=== PATIENT | male | born 1960 | race African-American/Black ===

== ENCOUNTER 2023-03-07 10:58 | Outpatient (REF) | payer SELFPAY ==
--- NOTE | ~2023-03-07 | US_ITS ---
EXAMINATION: US VENOUS ULTRASOUND WITH DOPPLER LOWER EXTREMITY, LEFT CLINICAL INFORMATION: Pain COMPARISON: None available. TECHNIQUE: Ultrasound of the deep veins is performed from the hip to the calf with compression sonography and color and pulse Doppler assessment. Spectral analysis with color-flow imaging is performed. FINDINGS: There is no flow in the Posterior tibial vein, suggesting deep venous fibrosis. More proximally the veins are patent There is normal venous compression and respiratory variation and augmented flow. The visualized common femoral vein, superficial femoral vein, profunda femoral vein, popliteal vein, There is no significant popliteal fossa cyst. US/US venous duplex LE LT IMPRESSION: Positive DVT. Thromboses of posterior tibial vein. (Referring physician staff is being called, by physician staff assistance, to be alerted of the above critical findings and recommendations.) LEFTY 03/08/2023 1:23 PM
== END 2023-03-07 10:59 | disposition home or self-care (01) ==
LOC: HO.XRAY 10:58
PROVIDERS: PCP Hospitalist; Visit Provider Hospitalist
DX: Z86.73 Personal history of transient ischemic attack (TIA), and cerebral infarction without residual deficits (principal)
CPT/HCPCS: 93971

== ENCOUNTER 2023-03-08 11:06 | Outpatient (REF) | payer MEDICAID, SELFPAY | END 2023-03-08 11:07 | disposition home or self-care (01) | LOC: HO.US 11:06 | PROVIDERS: PCP Hospitalist; Visit Provider Hospitalist | DX: Z13.89 Encounter for screening for other disorder (principal) ==

== ENCOUNTER 2023-08-16 17:00 | Inpatient (IN) | payer MEDICAID, SELFPAY ==
[2023-08-16] VITALS (22 sets, daily range): BP systolic 63–118; BP diastolic 35–70; PULSE 53–114; RESP 14–20; TEMP 35.9–36.6; O2SAT 94–100; BMI 33.0
--- NOTE | ~2023-08-16 | XR_ITS ---
EXAMINATION: XR CHEST CLINICAL INFORMATION: Altered mental status COMPARISON: None available. TECHNIQUE: Frontal view of the chest was obtained in the supine position. The study is limited as the lower lungs are not included on the radiograph, right greater than left. FINDINGS: The heart is enlarged. The film is taken in the supine position and there is no convincing evidence of CHF. The right hemidiaphragm is elevated. Left basilar atelectasis is seen. No gross consolidations or lung masses are seen. XR/XR chest 1V IMPRESSION: Cardiomegaly. No acute intrathoracic disease.
--- NOTE | ~2023-08-16 | XR_ITS ---
EXAMINATION: XR ANKLE, LEFT CLINICAL INFORMATION: Wound COMPARISON: None available. TECHNIQUE: AP, lateral, and mortise views of the left ankle. FINDINGS: Status post amputation of the left midfoot amputation. There appears to be a shallow soft tissue ulceration at the amputation stump. Osseous structures appear intact without evidence of osseous destructive changes or cortical lucency. Chronic degenerative facet changes seen of the ankle mortise. Generalized soft tissue edema noted throughout the calf. XR/XR ankle LT min 3V IMPRESSION: Status post amputation of the left midfoot. Shallow soft tissue ulceration at the amputation stump. No evidence of osteomyelitis.
--- NOTE | 2023-08-16 17:45 | ECG_ITS ---
Test Reason : HTN Blood Pressure : / mmHG Vent. Rate : 081 BPM Atrial Rate : 243 BPM P-R Int : 000 ms QRS Dur : 080 ms QT Int : 376 ms P-R-T Axes : 000 006 037 degrees QTc Int : 436 ms Atrial flutter with variable A-V block Nonspecific ST and T wave abnormality Abnormal ECG When compared with ECG of 09-APR-2016 14:37, Criteria for Inferior infarct are no longer Present T wave inversion no longer evident in Inferior leads Inverted T waves have replaced nonspecific T wave abnormality in Anterior leads QT has lengthened Referred By: Courtney Solorio Electronically Signed By:Gregory Carrero
[2023-08-16] MEDS: 0.9 % Sodium Chloride 2,328 ML 2328 ML IV (18:10)
--- NOTE | 2023-08-16 18:23 | ED_ITS ---
HPI - General Adult General Chief complaint: General Medical Stated complaint: ?SEPSIS, R FOOT INFECTION,FEVER,AMS Time Seen by Provider: 08/16/23 17:29 Source: patient and EMS Mode of arrival: EMS Limitations: altered mental status History of Present Illness HPI narrative: Patient is a 62-year-old male who presents emergency department via EMS coming from [facility], acutely agitated, reportedly from care when staff is altered, hypotensive, febrile, and concern for infection to the left foot. Initially lower nursing staff to obtain vital signs noted to be hypotensive with systolic blood pressure in 80s, diaphoretic, pulse greater than 90, combative towards staff, yelling out, attempting to strike at staff, not allowing the access be obtained lab draws. When asked why he is here he reports he wants some fucking medicine and to get out of here . Related Data Home Medications ?Medication ?Instructions ?Recorded ?Confirmed Eliquis 5 mg PO BID LLE DVT 08/17/23 08/17/23 Lipitor 40 mg PO BEDTIME 08/17/23 08/17/23 Tylenol Ex Str Rapid Release 1,000 mg PO BID bilateral leg pain 08/17/23 08/17/23 acetaminophen 325 mg tablet 650 mg PO Q4H PRN Fever Or Pain 08/17/23 08/17/23 aluminum-mag hydroxide-simethicone 10 ml PO Q4H PRN Acid Reflux 08/17/23 08/17/23 200 mg-200 mg-20 mg/5 mL oral susp aspirin 81 mg chewable tablet 81 mg PO DAILY Atrial Fibrillation 08/17/23 08/17/23 bisacodyl 10 mg rectal suppository 10 mg WV DAILY PRN Constipation 08/17/23 08/17/23 dextromethorphan-guaifenesin 10 10 ml PO Q4H PRN Cough 08/17/23 08/17/23 mg-100 mg/5 mL oral liquid diazepam 2 mg tablet 2 mg PO BID 08/17/23 08/17/23 divalproex 500 mg tablet,delayed 500 mg PO BID 08/17/23 08/17/23 release docusate sodium 100 mg capsule 100 mg PO BID 08/17/23 08/17/23 ferrous sulfate 325 mg (65 mg 325 mg PO BID 08/17/23 08/17/23 iron) tablet haloperidol 5 mg PO BID Schizophrenia 08/17/23 08/17/23 haloperidol 10 mg tablet 10 mg PO BID schizophrenia 08/17/23 08/17/23 lactulose 10 gram/15 mL oral 60 ml PO BID Constipation 08/17/23 08/17/23 solution latanoprost 0.005 % ophthalmic (eye) BEDTIME 08/17/23 08/17/23 Chronic angle-closure glaucoma, bilateral, severe levothyroxine 125 mcg tablet 125 mcg PO DAILY 08/17/23 08/17/23 (Synthroid) lisinopril 5 mg PO DAILY 08/17/23 08/17/23 metoprolol succinate 25 mg 25 mg PO DAILY 08/17/23 08/17/23 tablet,extended release 24 hr naloxone 4 mg/actuation nasal 1 spray intranasal Q3M PRN OVERDOSE 08/17/23 08/17/23 spray (Narcan) oxcarbazepine 150 mg tablet 150 mg PO BID 08/17/23 08/17/23 rifaximin 550 mg tablet 550 mg PO BID 08/17/23 08/17/23 sennosides 8.6 mg tablet (senna) 8.6 mg PO BEDTIME PRN Constipation 08/17/23 08/17/23 sodium phosphates 19 gram-7 118 ml WV DAILY PRN Constipation 08/17/23 08/17/23 gram/118 mL enema (Fleet Enema) timolol maleate 0.25 % eye drops 1 drp ophthalmic (eye) DAILY 08/17/23 08/17/23 tramadol 50 mg tablet 50 mg PO Q6H PRN Moderate Pain 08/17/23 08/17/23 (Scale Score 5-6) trihexyphenidyl 2 mg tablet 2 mg PO TID 08/17/23 08/17/23 Allergies Allergy/AdvReac Type Severity Reaction Status Date / Time penicillin V Allergy Unknown Unknown Verified 08/16/23 17:34 doxycycline Allergy Unknown Verified 08/16/23 23:05 Review of Systems 2 Review of Systems: Yes Unobtainable due to mental status PMFSH Past Medical History Attestation statement: The following information was validated with the patient. Source: old records reviewed and nursing notes reviewed Social History Social History Unable to assess alcohol history related to: Unable to respond Patient Tobacco Use Status: Tobacco use Unknown Physical Exam ED Vital Signs: Vital Signs - 24 hr 08/16/23 17:27 08/16/23 18:30 08/16/23 18:41 Temperature 97.9 F Pulse Rate 92 71 Respiratory Rate 18 Blood Pressure 87/37 L 101/70 115/66 Pulse Oximetry 98 Oxygen Delivery Method 08/16/23 19:24 08/16/23 19:49 08/16/23 19:57 Temperature 97.3 F Pulse Rate 82 83 98 Respiratory Rate 15 20 17 Blood Pressure 80/44 L 96/56 L 99/60 Pulse Oximetry 97 99 Oxygen Delivery Method Room Air Room Air 08/16/23 20:31 08/16/23 20:56 08/16/23 21:14 Temperature 97.9 F 97.9 F 97.7 F Pulse Rate 88 80 80 Respiratory Rate 17 14 15 Blood Pressure 107/62 89/53 L 75/41 L Pulse Oximetry 100 94 94 Oxygen Delivery Method Nasal Cannula with ETCO2 Nasal Cannula with ETCO2 Room Air 08/16/23 21:30 08/16/23 22:10 08/16/23 22:25 Temperature 97.5 F 96.6 F L 96.6 F L Pulse Rate 81 86 96 Respiratory Rate 15 20 Blood Pressure 88/49 L 76/47 L 100/56 L Pulse Oximetry 96 97 100 Oxygen Delivery Method Room Air Room Air Room Air 08/16/23 22:45 08/16/23 22:56 08/16/23 23:02 Temperature 96.8 F Pulse Rate 83 84 57 Respiratory Rate 18 Blood Pressure 63/36 L 67/35 L 98/52 L Pulse Oximetry 98 Oxygen Delivery Method Room Air 08/16/23 23:07 Temperature Pulse Rate 53 Respiratory Rate Blood Pressure 104/62 Pulse Oximetry Oxygen Delivery Method BMI result Body Mass Index 33.0 Appearance: Alert.?Oriented to person acutely agitated Eyes: Pupils equal, round and reactive to light.? ENT: Pharynx normal.?? Neck: Normal inspection.? Neck supple.?? CVS: Heart sounds normal. Irregularly irregular rhythm.? Pulses normal.??Diaphoretic Respiratory: No respiratory distress.? Lung sounds clear to auscultation bilaterally?? Abdomen: Soft and non-tender. Normoactive bowel sounds. Skin: Diaphoretic.? Normal skin color.? Extremities: No lower extremity edema.? No calf ttp? Neuro: Moves all extremities spontaneously. Sensation intact bilaterally. Course Reevaluation(s) Reevaluation #1: Right EJ place and serum labs were able to be obtained. IV fluids were initiated. Patient remains acutely agitated attempting to get off of the stretcher, patient received lorazepam 2 mg IV, plan of care established with ED attending Dr. Gill. Noted allergy to penicillin, reaction is unknown, Dr. Gill agrees with antibiotic coverage to include cefepime and vancomycin Time: 18:20 Reevaluation #2: Normotensive with administration of IV fluids; 115/66. Calmer after lorazepam administration. CBC revealing leukocytosis of 13.9 with left shift, normocytic anemia not meeting transfusion criteria. INR >1.6, initial hypotension concerning for organ dysfunction my impression of XR of the left foot does not appear consistent with findings concerning for osteomyelitis. No lactic acidosis. Sepsis fluid bolus was ordered already, based on ideal body weight as patient is obese. High sensitive troponin within normal range. Time: 18:59 Reevaluation #3: Advised by nursing staff that patient was noted to be lethargic, again hypotensive blood pressure 80/44. Sepsis IV fluid bolus remains infusing at this time, he is arousable to tactile stimuli, respirations are more shallow than earlier but remain regular and even, has no hypoxia. Time: 19:15 Additional Reevaluation(s): 19:45 - yelling out at staff, able to be verbally redirected. Bliss catheterization was placed for fluid management monitoring, core temperature obtained, afebrile at this time. Blood pressure again stabilizing with IV fluids; 99/60 20:00 - urinalysis is without evidence of infection. 21:00 - bolus has completed, again hypotensive, patient received additional 500 mL normal saline, at this time suspected cellulitis of left lower extremity as etiology for infection. In total patient has received 2,850 mL IVF with initial fluid bolus based on ideal body weight and IV antibiotics. Total fluid bolus based on current body weight equivalent 3,300 mL, reported for additional 1 L at this time, total 3,850 mL. 22:40 - unable to maintain blood pressure IV fluids are completed. Discussed this case with ED attending, Dr. Gill with plan of care for initiation of Levophed and admission to ICU 22:55 - accepted for admission to intensive care unit, cereal chemist Dr. Benavides Leukocyte initiated, systolic blood pressure up to 98. While at bedside for re-evaluation patient noted to become bradycardic with pulse down to the 40s/50s, previously was in the 80/90s. Medical records from facility indicate history of adrenal cortical insufficiency, I do not see prednisone on his medication record from the facility. Will administer Solu-Cortef 100mg IVP Medications Administered Discontinued Medications Generic Name Dose Route Start Last Admin Trade Name Jovita PRN Reason Stop Dose Admin Apixaban 5 mg 08/17/23 09:00 08/17/23 09:13 Apixaban 5 Mg Tablet PO 5 mg BID SUSAN Administration Divalproex Sodium 500 mg 08/17/23 09:00 08/17/23 09:13 Divalproex Sodium 500 Mg Tablet.Dr PO 500 mg BID SUSAN Administration Enoxaparin Sodium 105 mg 08/17/23 01:30 08/17/23 02:56 Enoxaparin Sodium 120 Mg/0.8 Ml Syringe 1 mg/kg (105 mg) 105 mg SUBCUT Administration Q12H SUSAN Haloperidol 5 mg 08/17/23 09:00 08/17/23 09:13 Haloperidol 5 Mg Tablet PO 5 mg BID SUSAN Administration Heparin Sodium (Porcine) 5,000 unit 08/17/23 00:00 08/17/23 01:13 Heparin Sodium,Porcine 5,000 Unit/Ml Vial SUBCUT Not Given Q8H SUSAN Hydrocortisone Sodium Succinate 100 mg 08/16/23 23:06 08/16/23 23:16 Hydrocortisone Sod Succ/Pf 100 Mg Vial IVPUSH 08/16/23 23:07 100 mg ONCE ONE Administration Sodium Chloride 2,328 mls @ 2,328 mls/hr 08/16/23 17:45 08/16/23 21:14 Ns IV 08/16/23 18:44 Infused .Q1H STA Infusion Vancomycin HCl 2,000 mg in 500 mls @ 250 mls/hr 08/16/23 18:29 08/16/23 21:21 Vancomycin/Ns IV 08/16/23 20:28 Infused ONCE ONE Infusion Cefepime HCl 2 gm/ Sodium 50 mls @ 100 mls/hr 08/16/23 18:35 08/16/23 19:17 Chloride IV 08/16/23 19:04 Infused ONCE ONE Infusion Sodium Chloride 500 mls @ 500 mls/hr 08/16/23 21:15 08/16/23 22:19 Ns IV 08/16/23 22:14 Infused .Q1H SUSAN Infusion Sodium Chloride 500 mls @ 500 mls/hr 08/16/23 21:15 08/16/23 22:19 Ns IV 08/16/23 22:14 Infused .Q1H SUSAN Infusion Norepinephrine Bitartrate 8 mg in 250 mls @ 0 mls/hr 08/16/23 23:00 08/17/23 08:45 Levophed IV 0 mcg/kg/min .Q0M SUSAN 0 mls/hr Titration Protocol Per Protocol Albumin Human 100 mls @ 100 mls/hr 08/17/23 01:45 08/17/23 03:57 Kedbumin 25 % IV 08/17/23 03:44 Infused Q1H [facility] Infusion Cefepime HCl 2 gm/ Sodium 50 mls @ 100 mls/hr 08/17/23 08:00 08/17/23 09:22 Chloride IV Not Given Q8H [facility] Calcium Gluconate 1 gm in 50 mls @ 50 mls/hr 08/17/23 07:35 08/17/23 09:22 Calcium Gluconate IV 08/17/23 08:34 Not Given ONCE ONE Vancomycin HCl 1,500 mg/ 500 mls @ 333.333 mls/hr 08/17/23 09:00 08/17/23 09:22 Sodium Chloride IV Not Given Q12H [facility] Insulin Human Lispro 0 unit 08/17/23 01:30 08/17/23 01:52 Insulin Lispro 100 Unit/Ml 3 Ml Vial SUBCUT Not Given Q6H [facility] Protocol Insulin Human Lispro 0 unit 08/17/23 07:30 08/17/23 08:21 Insulin Lispro 100 Unit/Ml 3 Ml Vial SUBCUT Not Given QIDACHS [facility] Protocol Ketorolac Tromethamine 30 mg 08/16/23 18:23 08/16/23 18:35 Ketorolac Tromethamine 30 Mg/Ml Vial IVPUSH 08/16/23 18:24 30 mg ONCE ONE Administration Levothyroxine Sodium 125 mcg 08/17/23 06:00 08/17/23 06:06 Levothyroxine Sodium 125 Mcg Tablet PO 125 mcg DAILY@0600 [facility] Administration Lorazepam 1 mg 08/16/23 18:23 08/16/23 18:34 Lorazepam 2 Mg/Ml Vial IVPUSH 08/16/23 18:24 1 mg ONCE ONE Administration Lorazepam 1 mg 08/16/23 18:29 08/16/23 18:35 Lorazepam 2 Mg/Ml Vial IVPUSH 08/16/23 18:30 1 mg ONCE ONE Administration Oxcarbazepine 150 mg 08/17/23 09:00 08/17/23 09:13 Oxcarbazepine 150 Mg Tablet PO 150 mg BID SUSAN Administration Procedures EJ/Peripheral Line Neck R: Time Out Performed: Yes Size (gauge): 20 IV Secured and Dressing Applied: Yes Patient Tolerated Procedure: well Additional Comments: Right EJ Medical Decision Making Medical Decision Making MDM Narrative: Patient is a 62-year-old male with past medical history of type 2 diabetes, hypothyroidism, peripheral vascular disease, iron deficiency anemia, asthma, history of polysubstance use disorder, GERD, adrenalcortical insufficiency, ASCVD, hypertension, atrial flutter, schizophrenia, COPD, left transmetatarsal amputation, glaucoma presenting to emergency department via EMS with altered mental status agitation and reports of fever and hypotension prior to arrival. As noted in HPI he presents acutely agitated and combative towards staff, initially allowed for vital signs to be obtained and was noted to be hypotensive and tachycardic, feels quite hot to the touch, with left lower extremity hot to touch concerning for cellulitis and notable wound to the left transmetatarsal stump. 17:30 - First Contact with patient, sepsis alert called, with suspected L foot infection, febrile earlier today, oral temp without hypothermia at this time, unable to obtain rectal temperature. Serum labs in addition to lactic acid and blood cultures were ordered, patient received sepsis fluid bolus concern for severe sepsis at this time. Allergy to penicillin of unknown reaction, patient receive cefepime and vancomycin IV. 17:45 - ED attending Dr. Gill to bedside, as PT striking at staff, not allowing IV access ot be obtained. Patient receptive to Dr. Gill's presence, and allowing for care to pursue 18:00 - Difficulty obtaining IV Access, US guided peripheral access attempted without success. Differential Diagnosis Differential Diagnoses: The differential diagnosis associated with the presentation includes (Osteomyelitis, infected diabetic foot ulcer of the left stump, sepsis, severe sepsis, viral syndrome, hypoglycemia, altered mental status) Admission/Observation Consideration of admission/observation: Escalation of care including admission/observation considered (See narrative above and course narrative for further detail) Lab Data MDM Lab Attestation statement: I reviewed the patient's lab results. (See course narrative for further detail) 08/17/23 05:30 08/17/23 05:30 Labs: Lab Results 08/16/23 08/16/23 08/16/23 Range/Units 18:19 20:00 21:50 WBC 13.9 H (4.8-10.8) X10*3/uL RBC 4.13 L (4.60-5.80) X10*6/uL Hgb 11.7 L (14.0-18.0) g/dl Hct 35.1 L (42.0-52.0) % MCV 85.0 (80.0-98.0) fL MCH 28.3 (27.0-33.0) pg MCHC 33.3 (31.0-36.0) g/dl RDW 15.9 (11.0-16.0) % Plt Count 193 (160-400) X10*3/uL MPV 9.2 L (9.4-12.4) fL Immature Gran % (Auto) 0.7 H (0.0-0.4) % Neut % (Auto) 92.4 H (45-73) % Lymph % (Auto) 2.1 L (20-40) % Victoria % (Auto) 4.7 (2-11) % Eos % (Auto) 0.0 (0-4) % Baso % (Auto) 0.1 (0-2) % Lymph # (Auto) 0.3 L (1.2-4.9) X10*3/uL Victoria # (Auto) 0.7 (0.1-1.2) X10*3/uL Eos # (Auto) 0.0 (0.0-0.4) X10*3/uL Baso # (Auto) 0.0 (0.0-0.2) X10*3/uL Abs Immat Gran (auto) 0.10 H (0.00-0.03) X10*3/uL Absolute Neuts (auto) 12.8 H (2.0-8.3) x10*3/uL Absolute Nucleated RBC 0.000 (0.0-0.012) X10*3/uL Nucleated RBC % (auto) 0.0 (0.0-0.2) /100WBC Smear Tech's Comments VERIFIED PT 19.0 H (11.1-13.3) SEC INR 1.6 H (0.9-1.1) Sodium 136 (135-145) mmol/L Potassium 4.4 (3.3-5.1) mmol/L Chloride 105 (96-108) mmol/L Carbon Dioxide 24 (22-29) mmol/L Anion Gap 11 L (12-20) BUN 22 H (9-16) mg/dL Creatinine 0.83 (0.5-1.4) mg/dL Estim Creat Clear Calc 119.9 Estimated GFR > 60 POC Glucose 95 (60-115) mg/dL Random Glucose 84 (60-115) mg/dL Lactic Acid 1.7 (0.5-2.0) mmol/L Calcium 8.7 (8.4-10.2) mg/dL Phosphorus 4.0 (2.7-4.5) mg/dL Magnesium 2.2 (1.6-2.6) mg/dL Total Bilirubin 0.4 (0.0-1.0) mg/dL AST 25 (5-37) U/L ALT 16 (0-40) U/L Alkaline Phosphatase 77 (39-117) U/L Troponin I High Sens 7.0 (<3.5-35.0) ng/L B-Natriuretic Peptide 157 H (<100) pg/mL Total Protein 7.3 (6.5-8.0) g/dL Albumin 3.3 L (3.5-5.0) g/dL TSH 2.63 (0.32-4.0) uIU/mL Urine Color Dark Yellow Urine Appearance Clear Urine pH 5.5 (5.0-9.0) Ur Specific Fowler 1.020 (1.005-1.025) Urine Protein Negative (Neg-Trace) mg/dL Urine Glucose (UA) Negative (Negative) mg/dL Urine Ketones Trace (Negative) mg/dL Urine Blood Negative (Negative) Urine Nitrite Negative (Negative) Ur Leukocyte Esterase Negative (Negative) Influenza Type A (PCR) NEGATIVE (Negative) Influenza Type B (PCR) NEGATIVE (Negative) RSV RNA Qual (PCR) NEGATIVE (Negative) SARS-CoV-2 RNA (RT-PCR) NEGATIVE (Negative) Independent Interpretation I performed an independent interpretation of an: EKG Interpretation: Rate:81 Rhythm:? Atrial flutter Normal QRS complex.?? ST T wave :??No ST elevation, no ST depression qTC:436 prior studies:? None available for review, based on review of medical history and SNF chart has history of atrial flutter The study has been interpreted contemporaneously by me. Radiology Impression Discussion of test interpretation with radiology: I have reviewed the radiologist's reading. Radiologist Impression: XR/XR ankle LT min 3V IMPRESSION: Status post amputation of the left midfoot. Shallow soft tissue ulceration at the amputation stump. No evidence of osteomyelitis. Independent Historian Clinical information obtained from an independent historian. History obtained from or confirmed by: EMS External Record Review External record reviewed: Outside ED record ([facility] records) Critical Care Time Critical Care Time Critical Care Time: Yes Total Critical Care Time: 120 Attestation: I personally attest to this critical care time spent taking care of the patient exclusive of all other billable procedures was approximately 120 minutes including initial evaluation of patient, ordering tests, x-ray interpretation, EKG interpretation, medical consultation, documentation, re-evaluation. Discharge Plan Discharge Clinical Impression: Cellulitis of left lower extremity Sepsis Qualifiers: Sepsis type: sepsis due to unspecified organism Sepsis acute organ dysfunction status: without acute organ dysfunction Qualified Code(s): A41.9 - Sepsis, unspecified organism Patient Disposition: Admitted As Inpatient Interventions: Admission Worksheet (ED) Last Done: 08/16/23 23:56 Discharge Date/Time: 08/17/23 01:08
[2023-08-16 18:26] LABS: Basophils Percent Auto 0.1 % (0-2); Hematocrit 35.1 % (42.0-52.0); Hemoglobin 11.7 g/dl (14.0-18.0); Imm Gran Pct Auto 0.7 % (0.0-0.4); Lymphocytes Absolute Auto 0.3 X10*3/uL (1.2-4.9); Lymphocytes Percent Auto 2.1 % (20-40); MANUAL DIFF FLAG SCAN; Mean Corpuscular HGB Conc 33.3 g/dl (31.0-36.0); Mean Corpuscular Hemoglobin 28.3 pg (27.0-33.0); Mean Platelet Volume 9.2 fL (9.4-12.4); Monocytes Absolute Auto 0.7 X10*3/uL (0.1-1.2); Monocytes Percent Auto 4.7 % (2-11); Neutrophils Absolute Auto 12.8 x10*3/uL (2.0-8.3); Neutrophils Percent Auto 92.4 % (45-73); Platelet Count 193 X10*3/uL (160-400); Red Blood Count 4.13 X10*6/uL (4.60-5.80); Red Cell Distribution Width 15.9 % (11.0-16.0); SCAN SMEAR FLAG 1; White Blood Count 13.9 X10*3/uL (4.8-10.8)
[2023-08-16 18:32] LABS: INTERNATIONAL NORM RATIO 1.6 (0.9-1.1)
[2023-08-16] MEDS: LORazepam 2 MG/ML VIAL 1 MG IVPUSH ×2 (18:34→18:35)
[2023-08-16] MEDS: Ketorolac Tromethamine 30 MG/ML VIAL IVPUSH (18:35)
[2023-08-16 18:39] LABS: Lactic Acid 1.7 mmol/L (0.5-2.0)
[2023-08-16] MEDS: cefEPime HCl 2 GM in 0.9 % Sodium Chloride 50 ML IV (18:40)
[2023-08-16 18:46] LABS: Alanine Aminotransferase 16 U/L (0-40); Albumin Level 3.3 g/dL (3.5-5.0); Alkaline Phosphatase 77 U/L (39-117); Anion Gap 11 (12-20); Aspartate Amino Transferase 25 U/L (5-37); Bilirubin Total 0.4 mg/dL (0.0-1.0); Blood Urea Nitrogen 22 mg/dL (9-16); Calcium 8.7 mg/dL (8.4-10.2); Carbon Dioxide 24 mmol/L (22-29); Chloride 105 mmol/L (96-108); Creatinine Clr Calc Pharmacy 119.9; Estimated Glomerular Filt Rate > 60; Glucose Random 84 mg/dL (60-115); Magnesium 2.2 mg/dL (1.6-2.6); Potassium 4.4 mmol/L (3.3-5.1); SLIDE REVIEW VERIFIED; Sodium 136 mmol/L (135-145); Total Protein 7.3 g/dL (6.5-8.0)
[2023-08-16 18:50] LABS: B Type Natriuretic Peptide 157 pg/mL (<100)
[2023-08-16] MEDS: vancomycin/NS 2,000 MG/500 ML PLAST..BAG 250 MG IV (19:21)
--- NOTE | 2023-08-16 20:08 | PC.NURSE ---
assumed care of pt at 1900. upon entering room, pt combative, blood pressure cuff removed and one liter of fluids hanging. this rn begun the remianing of sepsis fluids and vanco. John RIVERA called to bedside due to pt blood pressure reading. fluids placed on pressure bag. pt began to become calm, mejia catheter placed per provider order, 16F, 150cc yellow urine drained and sent to lab. temp sensing mejia in place, temp 98.1. oxygen probe placed on pt right toe, o2 sat 98-100%, pt normal sinus on tele 90-92bpm.
[2023-08-16 20:11] LABS: Appearance Urine Clear; Color Urine Dark Yellow; Glucose Urine UA Negative (Negative); Leukocyte Esterase Urine Negative (Negative); Nitrite Urine Negative (Negative); PH 5.5 (5.0-9.0); Urine Blood Negative (Negative); Urine Ketones Trace mg/dL (Negative); Urine Protein Negative (Neg-Trace)
--- NOTE | 2023-08-16 20:12 | PC.NURSE ---
pt continuing to remove blood pressure cuff at this time.
--- NOTE | 2023-08-16 20:19 | PC.NURSE ---
camera placed on pt for pt safety.
[2023-08-16 20:47] LABS: Influenza A PCR NEGATIVE (Negative); Influenza B PCR NEGATIVE (Negative); Resp Syncy Virus RNA Qual PCR NEGATIVE (Negative); SARS COV2 PCR INHOUSE NEGATIVE (Negative)
--- NOTE | 2023-08-16 21:01 | PC.NURSE ---
John RIVERA aware of pt blood pressure at this time, awaiting new orders.
[2023-08-16] MEDS: 0.9 % Sodium Chloride 500 ML IV ×2 (21:19)
--- NOTE | 2023-08-16 21:33 | PC.NURSE ---
zoey PA at bedside, aware of blood pressure, Liter of fluids hanging at this time, pt cooperative.
[2023-08-16 21:53] LABS: Glucose, Whole Blood 95 mg/dL (60-115)
[2023-08-16] MEDS: Norepinephrine Bitartrate/D5W 8 MG/250 ML PLAST..BAG 10.35 MG IV (22:56)
--- NOTE | 2023-08-16 23:09 | PC.NURSE ---
ICU provider at bedside to assess pt. verbal order to continue Levo drip.
[2023-08-16] MEDS: Hydrocortisone Sod Succ/PF 100 MG VIAL IVPUSH (23:16)
--- NOTE | 2023-08-16 23:43 | PC.NURSE ---
report given to ICU at this time.
[2023-08-17] VITALS (23 sets, daily range): BP systolic 77–132; BP diastolic 52–93; PULSE 47–98; RESP 13–21; TEMP 36–37.2; O2SAT 91–98; BMI 32.8
--- NOTE | 2023-08-17 | ECG_ITS ---
Test Reason : arrhythmia Blood Pressure : / mmHG Vent. Rate : 046 BPM Atrial Rate : 256 BPM P-R Int : 000 ms QRS Dur : 084 ms QT Int : 462 ms P-R-T Axes : 000 -04 057 degrees QTc Int : 404 ms Atrial flutter with variable A-V block Inferior infarct , age undetermined Abnormal ECG When compared with ECG of 16-AUG-2023 19:22, Vent. rate has decreased BY 35 BPM Referred By: Courtney Solorio Electronically Signed By:Gregory Carrero
--- NOTE | 2023-08-17 00:04 | P.HPCC_ITS ---
History of Present Illness Date of Service: 08/17/23 Attending physician on admission: Eleanor Benavides Chief Complaint: Altered mental status Mr. Hopper is a 62-year-old male with past medical history of type 2 diabetes, hypothyroidism, peripheral vascular disease, iron deficiency anemia, asthma, history of polysubstance use disorder, GERD, adrenocortical insufficiency, ASCVD, hypertension, atrial flutter, schizophrenia, COPD, left transmetatarsal amputation, glaucoma who presented to emergency department via EMS with altered mental status agitation and reports of fever and hypotension prior to arrival.? On arrival to the ER, his BP was 83/37, heart rate 92, respiratory rate 18, O2 sat 98% on room air.? He was afebrile with temp 97.9 F. Laboratory data significant for WBC 13.9 with left shift, BUN 22, creatinine 0.83 ( baseline unknown ) lactic acid 1.7, BNP 157, albumin 3.3. UA was negative for UTI. Respiratory panel negative for influenza, RSV, COVID. Imaging:? CXR showed no consolidations or evidence of CHF. ? Left ankle x-ray negative for osteomyelitis. ED course: The patient received lorazepam 2 mg IV,? a total of 3850 mL normal saline per sepsis protocol.? He was given?vancomycin 2 g IV, cefepime 2 g IV, 100 mg Solu-Cortef IV and was started on Levophed. Review of Systems 2 Review of Systems: Yes Unobtainable due to mental status (Pt refusing to answer questions on arrival to the unit. ) Constitutional: Constitutional: Reports as per [facility] Social History Social History Unable to assess alcohol history related to: Unable to respond Patient Tobacco Use Status: Tobacco use Unknown Use of substances other than those prescribed or required for medical reasons: Unable to respond Advance Directives: No Advance Directives Information Provided: No Nutrition Risks: No Nutritional Risk Meds Allergies Allergy/AdvReac Type Severity Reaction Status Date / Time penicillin V Allergy Unknown Unknown Verified 08/16/23 17:34 doxycycline Allergy Unknown Verified 08/16/23 23:05 Active Medications: Current Medications Heparin Sodium (Porcine) (Heparin Sodium,Porcine 5,000 Unit/Ml Vial) 5,000 unit SUBCUT Q8H SUSAN Norepinephrine Bitartrate (Levophed) 8 mg in 250 mls @ 0 mls/hr IV .Q0M SUSAN; Protocol Last Titration: 08/16/23 23:45 Dose: 0.19 mcg/kg/min, 39.33 mls/hr Home Medications ?Medication ?Instructions ?Recorded ?Confirmed ?Last Taken ?Type Eliquis 5 mg PO BID LLE DVT 08/17/23 08/17/23 08/16/23 History Lipitor 40 mg PO BEDTIME 08/17/23 08/17/23 08/16/23 History Tylenol Ex Str Rapid Release 1,000 mg PO BID bilateral leg pain 08/17/23 08/17/23 Unknown History aspirin 81 mg chewable tablet 81 mg PO DAILY Atrial Fibrillation 08/17/23 08/17/23 08/16/23 History divalproex 500 mg tablet,delayed 500 mg PO BID 08/17/23 08/17/23 08/16/23 History release haloperidol 5 mg PO BID Schizophrenia 08/17/23 08/17/23 08/16/23 History haloperidol 10 mg tablet 10 mg PO BID schizophrenia 08/17/23 08/17/23 08/16/23 History latanoprost 0.005 % ophthalmic (eye) BEDTIME 08/17/23 08/17/23 Unknown History Chronic angle-closure glaucoma, bilateral, severe levothyroxine 125 mcg tablet 125 mcg PO DAILY 08/17/23 08/17/23 08/16/23 History (Synthroid) lisinopril 5 mg PO DAILY 08/17/23 08/17/23 08/16/23 History metoprolol succinate 25 mg 25 mg PO DAILY 08/17/23 08/17/23 08/16/23 History tablet,extended release 24 hr oxcarbazepine 150 mg tablet 150 mg PO BID 08/17/23 08/17/23 08/16/23 History rifaximin 550 mg tablet 550 mg PO BID 08/17/23 08/17/23 08/16/23 History timolol maleate 0.25 % eye drops 1 drp ophthalmic (eye) DAILY 08/17/23 08/17/23 08/16/23 History tramadol 50 mg tablet 50 mg PO Q6H PRN Moderate Pain 08/17/23 08/17/23 Unknown History (Scale Score 5-6) Physical Exam 2 Vital Signs: Vital Signs: Last Vital Signs Temp 96.8 F 08/16/23 22:45 Pulse 83 08/16/23 23:45 Resp 18 08/16/23 22:45 BP 82/48 L 08/16/23 23:45 Pulse Ox 98 08/16/23 22:45 O2 Del Method Room Air 08/16/23 22:45 BMI result Body Mass Index 33.0 Const: General: no acute distress, alert and tired appearing Nutritional Appearance: average body habitus Orientation/consciousness: oriented to person, oriented to place and oriented to time Limitations: altered mental status, behavioral limitations, physical limitations and wheelchair HEENT: Head: Yes normocephalic and Yes atraumatic General nose exam: Normal external nose present (Nares patent, septum midline, sinuses nontender bilaterally.) Mouth: Normal oral and palatal mucosa present Teeth and gingiva: poor dentition Throat: Yes other (No erythema, no exudate.) Neck: Neck: Yes supple (no thyromegaly, trachea midline.) Carotids: normal carotid upstroke Resp: Effort & Inspection: normal respiratory effort Auscultation: clear to auscultation bilaterally (normal work of breathing, no accessory muscle use) Cardio: Jugular venous distension: no JVD Rate: bradycardic Rhythm: a bnormal rhythm irregularly irregular GI: Palpation (GI): Soft to palpation (nondistended.) and nontender Skin: Wounds: amputation site (left BKA) and wounds noted (scabbed area left stump) Neuro: General: oriented to person, oriented to place and oriented to time Extrem: General: Yes amputation noted (left BKA) Psych: Speech and movement: Clear speech present Affect: Indifferent affect present Attitude: Refuses to answer (attititude/behavior) Results Labs 08/17/23 05:30 08/17/23 05:30 Labs: Laboratory Results - last 24 hr 08/16/23 08/16/23 08/16/23 18:19 20:00 21:50 MCV 85.0 MCH 28.3 MCHC 33.3 RDW 15.9 Plt Count 193 MPV 9.2 L Immature Gran % (Auto) 0.7 H Neut % (Auto) 92.4 H Lymph % (Auto) 2.1 L [place] % (Auto) 4.7 Eos % (Auto) 0.0 Baso % (Auto) 0.1 Lymph # (Auto) 0.3 L [place] # (Auto) 0.7 Eos # (Auto) 0.0 Baso # (Auto) 0.0 Abs Immat Gran (auto) 0.10 H Absolute Neuts (auto) 12.8 H Absolute Nucleated RBC 0.000 Nucleated RBC % (auto) 0.0 Smear Tech's Comments VERIFIED PT 19.0 H INR 1.6 H Anion Gap 11 L Estim Creat Clear Calc 119.9 Estimated GFR > 60 POC Glucose 95 Random Glucose 84 Lactic Acid 1.7 Calcium 8.7 Phosphorus 4.0 Magnesium 2.2 Total Bilirubin 0.4 AST 25 ALT 16 Alkaline Phosphatase 77 Troponin I High Sens 7.0 B-Natriuretic Peptide 157 H Total Protein 7.3 Albumin 3.3 L Urine Color Dark Yellow Urine Appearance Clear Urine pH 5.5 Ur Specific [place] 1.020 Urine Protein Negative Urine Glucose (UA) Negative Urine Ketones Trace Urine Blood Negative Urine Nitrite Negative Ur Leukocyte Esterase Negative Influenza Type A (PCR) NEGATIVE Influenza Type B (PCR) NEGATIVE RSV RNA Qual (PCR) NEGATIVE SARS-CoV-2 RNA (RT-PCR) NEGATIVE Imaging Radiologist's Impressions: Impressions Ankle X-Ray 08/16/23 19:35 IMPRESSION: Status post amputation of the left midfoot. Shallow soft tissue ulceration at the amputation stump. No evidence of osteomyelitis. Chest X-Ray 08/16/23 21:25 IMPRESSION: Cardiomegaly. No acute intrathoracic disease. Assessment and Plan (1) Cellulitis of left lower extremity: Status: Acute (2) Sepsis: Qualifiers: Sepsis acute organ dysfunction status: without acute organ dysfunction Sepsis type: sepsis due to unspecified organism Qualified Code(s): A41.9 - Sepsis, unspecified organism Status: Acute (3) Altered mental status: Qualifiers: Altered mental status type: unspecified Qualified Code(s): R41.82 - Altered mental status, unspecified Status: Acute Plan Plan: 62-year-old male with past medical history of type 2 diabetes, hypothyroidism, peripheral vascular disease, iron deficiency anemia, asthma, history of polysubstance use disorder, GERD, adrenocortical insufficiency, ASCVD, hypertension, atrial flutter, schizophrenia, COPD, left transmetatarsal amputation, glaucoma admitted with altered mental status and sepsis.? Neuro: ?Altered mentation resolved. Pt alert and oriented x 3 on arrival to ICU. Cardiac: Hx of Afib/Aflutter. Pt in Aflutter on arrival. Bradycardia. Sepsis: leukocytosis with left shift, hypotension, no lactic acidosis. Cellulitis of LLE like source. Fluid resuscitated with 3.85 L in ED. Levophed. Trop negative. BNP 157 though no evidence of CHF on CXR. Pulmonary: No acute issues. Underlying COPD. Renal:? No acute issues.? Endo: ?Underlying DM2. SS insulin per protocol. Hypothyroidism. Continue home levothyroxine. TSH ordered. Hx adrenocortical insufficiency. Cortisol ordered. Given solu-cortef in ER. GI: no acute issues. ID: sepsis likely due to cellulitis of LLE. Volume resuscitated in the ER. Received cefepime, vancomycin. Blood cultures pending. Continue antibiotics. Heme/Onc: ?No acute issues. DVT in LLE in Mar 2023. Lovenox.? Psych: Extensive psych history to include schizophrenia, borderline personality disorder, polysubstance abuse. Continue home meds.? Total time managing care of this patient today: 60 minutes.
[2023-08-17 00:20] LABS: Glucose, Whole Blood 112 mg/dL (60-115)
--- NOTE | 2023-08-17 01:17 | W.PM.CCHP ---
Procedures Date of Service Date of Service: 08/17/23 Central Line Placement Left IJ: Central Line Comments: The left neck was widely prepped and draped in full sterile fashion.? Under US? guidance, the left IJ vein was cannulated on the 1st pass of the 18 g thin wall needle, with return of dark, nonpulsatile blood. As the guidewire was threaded, the patient coughed and turned his head. The needle moved and I was unable to re-cannulate. The procedure was aborted. Consent for Procedure: Elective - informed consent obtained (Pt agreed but refused to sign. Witnessed by Julio TREJO and Lucy TREJO.) Time out performed: Yes Sterile Technique Used: Yes Patient placed on monitor/pulse ox: Yes prep: mask, gown and gloves Central line prep: Chlorhexidine scrub and sterile drapes applied Local anesthesia used: lidocaine 1% Amount of anesthesia used (ml): 3 Ultrasound used for placement: Yes Patient tolerated procedure: well Complications: other (Unsuccessful attempt.)
[2023-08-17] MEDS: Albumin Human 25 % 100 ML IV ×2 (01:55→02:55)
[2023-08-17 02:27] LABS: TSH reflex Free T4 2.63 uIU/mL (0.32-4.0)
[2023-08-17] MEDS: Enoxaparin Sodium 120 MG/0.8 ML SYRINGE 105 MG SUBCUT (02:56)
[2023-08-17 05:36] LABS: VBG Base Excess -1.5 mmol/L; VBG HCO3 24 mmol/L (22-26); VBG pCO2 46 mmHg; VBG pH 7.33 (7.32-7.43); VBG pO2 42 mmHg
[2023-08-17 05:41] LABS: Basophils Percent Auto 0.1 % (0-2); Hematocrit 32.8 % (42.0-52.0); Hemoglobin 10.8 g/dl (14.0-18.0); Imm Gran Pct Auto 0.8 % (0.0-0.4); Lymphocytes Absolute Auto 0.3 X10*3/uL (1.2-4.9); MANUAL DIFF FLAG SCAN; Mean Corpuscular HGB Conc 32.9 g/dl (31.0-36.0); Mean Corpuscular Hemoglobin 28.3 pg (27.0-33.0); Mean Corpuscular Volume 86.1 fL (80.0-98.0); Mean Platelet Volume 9.5 fL (9.4-12.4); Monocytes Absolute Auto 0.3 X10*3/uL (0.1-1.2); Monocytes Percent Auto 2.4 % (2-11); Neutrophils Absolute Auto 11.7 x10*3/uL (2.0-8.3); Neutrophils Percent Auto 94.7 % (45-73); Platelet Count 162 X10*3/uL (160-400); Red Blood Count 3.81 X10*6/uL (4.60-5.80); Red Cell Distribution Width 15.9 % (11.0-16.0); SCAN SMEAR FLAG 1; White Blood Count 12.3 X10*3/uL (4.8-10.8)
[2023-08-17 05:47] LABS: Venous Blood Gas Refer to POC result
[2023-08-17 05:57] LABS: Albumin Level 3.6 g/dL (3.5-5.0); Anion Gap 10 (12-20); Blood Urea Nitrogen 17 mg/dL (9-16); Calcium 8.3 mg/dL (8.4-10.2); Carbon Dioxide 22 mmol/L (22-29); Chloride 111 mmol/L (96-108); Creatinine Clr Calc Pharmacy 135.8; Estimated Glomerular Filt Rate > 60; Glucose Random 126 mg/dL (60-115); Magnesium 2.2 mg/dL (1.6-2.6); Phosphorus 3.1 mg/dL (2.7-4.5); Potassium 3.8 mmol/L (3.3-5.1); Sodium 139 mmol/L (135-145)
[2023-08-17] MEDS: Levothyroxine Sodium 125 MCG TABLET PO (06:06)
[2023-08-17 06:07] LABS: SLIDE REVIEW VERIFIED
[2023-08-17 06:18] LABS: Cortisol Random 35.8 ug/dL
[2023-08-17 07:43] LABS: Glucose, Whole Blood 106 mg/dL (60-115)
--- NOTE | 2023-08-17 07:56 | PHA.PROG ---
Admission Date/Time: August 16, 2023 23:15 Indication: sepsis due to cellulitis Weight in k.6 kg Adjusted body weight in Kg: [place] body weight in Kg: Obesity Dosing Indication % IBW: Serum Creatinine - Last 168 Hours 08/16/23 08/17/23 18:19 05:30 Creatinine 0.83 0.73 Estimated CrCl and GFR - Last 168 Hours 08/16/23 08/17/23 18:19 05:30 Estim Creat Clear Calc 119.9 135.8 Estimated GFR > 60 > 60 Vancomycin Loading Dose: 2000mg x 1 Current Vancomycin Dosing Regimen: 1500mg Q12H Vancomycin Monitoring using AUC goal of 400 - 600 range with trough as surrogate marker: 551 mg/L Date and Time for next Vancomycin Level to be drawn: 08/17 @0700 Pharmacist Comments on Vancomycin Plan: Predicted trough of 17.2 mg/L; will continue to monitor renal function Vancomycin dosing will take advantage of [employer] as a clinical decision support tool that uses Bayesian modeling to calculate individual patient's pharmacokinetic parameters and forecast the patient's drug concentration time course with the target goal AUC 24 range of 400 - 600 mg/L/hr.
--- NOTE | 2023-08-17 08:38 | PHA.MEDREC ---
Pharmacy Consult ? Medication Reconciliation Pharmacy has completed the medication reconciliation. Med rec completed using med list from [facility] in [place].
--- NOTE | 2023-08-17 09:05 | PC.NURSE ---
Addendum entered by Walt Angel RN 08/17/23 12:10: [facility] contcted and informed pt has [address] for iv abx. also informed care [facility] to complete a MOLST form with pt d/t pt not wanting to be hospitalized Addendum entered by Walt Angel RN 08/17/23 09:24: R IJ and jackie d/c'ed. per care one keep IV in place for them to administer abx. b/l IV access in place. Original Note: Pt extremely agitated this AM yelling and attempting to hit staff stating he does not want to be hospitalized. Pt is correctly answering all questions except the year. he was able to state the current month but was unable to state the year. Pt stated he does not like to be hospitalized and wants to return to [facility]. assessed pt at bedside. Case management informed and [facility] was contacted. pt refusing medications and exams
[2023-08-17] MEDS: OXcarbazepine 150 MG TABLET PO (09:13)
[2023-08-17] MEDS: HaloperidoL 5 MG TABLET PO (09:13)
[2023-08-17] MEDS: Apixaban 5 MG TABLET PO (09:13)
[2023-08-17] MEDS: Divalproex Sodium 500 MG TABLET.DR PO (09:13)
--- NOTE | 2023-08-17 09:13 | PM.EVENT ---
Event Note Date of Service: 08/17/23 Event Note: Mr. Hopper was appreciably agitated and uncooperative with care despite multiple attempts at re-direction with multiple staff members this AM. Mr. Hopper was refusing antibiotics, stating he would like to leave the hospital. Mr. Hopper is alert and oriented to person, place, and month. Mr. Hopper is also able to describe his emergency department and hospital course, stating he is at [facility] for a likely infection of his L leg. We discussed the cons of leaving against medical advice, including the possibility of significant morbidity and mortality. Mr. Hopper asked to speak to Dr. Saunders, his primary care provider. I spoke with the hospitalists, and unfortunately Dr. Saunders is not in the hospital today. I called Mr. Hopper's nursing facility, [facility], who is very familiar with Mr. Hopper and states that he is not infrequently agitated and uncooperative with care, though there are certain individuals that have better rapport with Mr. Hopper, including the director chemistry at [facility]. Unfortunately, I was unable to reach the director chemistry. I have asked for social work to see Mr. Hopper when possible. However, I believe Mr. Hopper has capacity at this point in time, and that he understands the risks of discharge including disability and . For that reason, we will sign Mr. Hopper out against medical advice. Time Spent With Patient Time: Total time managing care of this patient today ____ minutes.
--- NOTE | 2023-08-17 09:47 | PM.DS ---
DS: Providers Provider Date of Service: 08/17/23 Date of admission: 08/16/23 23:15 Date of discharge: 08/17/23 Primary care physician: Jas Physician Attending physician on discharge: Eleanor Benavides DS: Transfer Hospital Acceptance Reason for Transfer: Patient leaving against medical advice and requests to be transferred back to his nursing facility, [facility]. Name of Facility: [facility] DS: Diagnosis Discharge Diagnosis (1) Cellulitis of left lower extremity: Status: Acute (2) Sepsis: Status: Acute DS: Summary Status at Discharge Functional status at discharge: wheelchair bound Overall status at discharge: patient is back to baseline Time Attestation Total time managing care of this patient today: 90 mintues. Discharge Coordination Time (in mins): 90 Quality: Safe Use of Opioids Does Pt have an Active Cancer Diagnosis on the Problem List?: No Quality: Stroke Does the patient have a stroke diagnosis?: No Physical Exam Vital Signs: Vital Signs: Last Vital Signs Temp 98.4 F 08/17/23 09:00 Pulse 89 08/17/23 09:00 Resp 19 08/17/23 09:00 BP 110/71 08/17/23 09:00 Pulse Ox 91 L 08/17/23 09:00 O2 Del Method Room Air 08/17/23 09:00 BMI result Body Mass Index 32.8 Const: General: healthy appearing, comfortable, no acute distress, well developed, alert, awake and Physically active Orientation/consciousness: patient oriented x3 HEENT: Head: Yes normal to inspection, Yes normocephalic and Yes atraumatic Eyes: General: appearance normal, both eyes and all related structures Neck: Neck: Yes normal visual inspection, Yes full ROM, Yes no meningeal signs and Yes supple Chest: Chest palpation & inspection: normal inspection of the chest Resp: Other: no appreciable rales, rhonchi, wheezing Cardio: Rate: regular rate Rhythm: regular rhythm GI: Inspection: Yes normal to inspection, No Abdominal wall edema and No distended Palpation (GI): Soft to palpation, not firm, nontender, no guarding and not rigid : Male General Exam: Yes normal external exam Skin: General skin exam: no rashes or lesions noted Neuro: General: patient oriented x3, tone normal, moves all extremities, no meningeal signs and no focal motor deficits Extrem: Other: appreciable L lower extremity erythema to the level of the ankle; appreciable ulcer L lower extremity stump without fluctuance, induration; appreciable non-pitting edema to bilateral knees General: Yes full ROM and Yes capillary refill normal Psych: Other: appreciably agitated and uncooperative with care DS: Data Data Completed and Pending Labs on day of discharge: Laboratory Results - last 24 hr 08/16/23 08/16/23 08/16/23 18:19 20:00 21:50 WBC 13.9 H RBC 4.13 L Hgb 11.7 L Hct 35.1 L MCV 85.0 MCH 28.3 MCHC 33.3 RDW 15.9 Plt Count 193 MPV 9.2 L Immature Gran % (Auto) 0.7 H Neut % (Auto) 92.4 H Lymph % (Auto) 2.1 L [place] % (Auto) 4.7 Eos % (Auto) 0.0 Baso % (Auto) 0.1 Lymph # (Auto) 0.3 L [place] # (Auto) 0.7 Eos # (Auto) 0.0 Baso # (Auto) 0.0 Abs Immat Gran (auto) 0.10 H Absolute Neuts (auto) 12.8 H Absolute Nucleated RBC 0.000 Nucleated RBC % (auto) 0.0 Smear Tech's Comments VERIFIED PT 19.0 H INR 1.6 H VBG pH VBG pCO2 VBG pO2 VBG HCO3 VBG O2 Saturation VBG Base Excess Sodium 136 Potassium 4.4 Chloride 105 Carbon Dioxide 24 Anion Gap 11 L BUN 22 H Creatinine 0.83 Estim Creat Clear Calc 119.9 Estimated GFR > 60 POC Glucose 95 Random Glucose 84 Lactic Acid 1.7 Calcium 8.7 Phosphorus 4.0 Magnesium 2.2 Total Bilirubin 0.4 AST 25 ALT 16 Alkaline Phosphatase 77 Troponin I High Sens 7.0 B-Natriuretic Peptide 157 H Total Protein 7.3 Albumin 3.3 L TSH 2.63 Random Cortisol Urine Color Dark Yellow Urine Appearance Clear Urine pH 5.5 Ur Specific [place] 1.020 Urine Protein Negative Urine Glucose (UA) Negative Urine Ketones Trace Urine Blood Negative Urine Nitrite Negative Ur Leukocyte Esterase Negative Influenza Type A (PCR) NEGATIVE Influenza Type B (PCR) NEGATIVE RSV RNA Qual (PCR) NEGATIVE SARS-CoV-2 RNA (RT-PCR) NEGATIVE 08/17/23 08/17/23 08/17/23 00:17 05:29 05:30 WBC 12.3 H RBC 3.81 L Hgb 10.8 L Hct 32.8 L MCV 86.1 MCH 28.3 MCHC 32.9 RDW 15.9 Plt Count 162 MPV 9.5 Immature Gran % (Auto) 0.8 H Neut % (Auto) 94.7 H Lymph % (Auto) 2.0 L [place] % (Auto) 2.4 Eos % (Auto) 0.0 Baso % (Auto) 0.1 Lymph # (Auto) 0.3 L [place] # (Auto) 0.3 Eos # (Auto) 0.0 Baso # (Auto) 0.0 Abs Immat Gran (auto) 0.10 H Absolute Neuts (auto) 11.7 H Absolute Nucleated RBC 0.000 Nucleated RBC % (auto) 0.0 Smear Tech's Comments VERIFIED PT INR VBG pH 7.33 VBG pCO2 46 VBG pO2 42 VBG HCO3 24 VBG O2 Saturation 66.0 VBG Base Excess -1.5 Sodium 139 Potassium 3.8 Chloride 111 H Carbon Dioxide 22 Anion Gap 10 L BUN 17 H Creatinine 0.73 Estim Creat Clear Calc 135.8 Estimated GFR > 60 POC Glucose 112 Random Glucose 126 H Lactic Acid Calcium 8.3 L Phosphorus 3.1 Magnesium 2.2 Total Bilirubin AST ALT Alkaline Phosphatase Troponin I High Sens B-Natriuretic Peptide Total Protein Albumin 3.6 TSH Random Cortisol 35.8 Urine Color Urine Appearance Urine pH Ur Specific [place] Urine Protein Urine Glucose (UA) Urine Ketones Urine Blood Urine Nitrite Ur Leukocyte Esterase Influenza Type A (PCR) Influenza Type B (PCR) RSV RNA Qual (PCR) SARS-CoV-2 RNA (RT-PCR) 08/17/23 07:39 WBC RBC Hgb Hct MCV MCH MCHC RDW Plt Count MPV Immature Gran % (Auto) Neut % (Auto) Lymph % (Auto) [place] % (Auto) Eos % (Auto) Baso % (Auto) Lymph # (Auto) [place] # (Auto) Eos # (Auto) Baso # (Auto) Abs Immat Gran (auto) Absolute Neuts (auto) Absolute Nucleated RBC Nucleated RBC % (auto) Smear Tech's Comments PT INR VBG pH VBG pCO2 VBG pO2 VBG HCO3 VBG O2 Saturation VBG Base Excess Sodium Potassium Chloride Carbon Dioxide Anion Gap BUN Creatinine Estim Creat Clear Calc Estimated GFR POC Glucose 106 Random Glucose Lactic Acid Calcium Phosphorus Magnesium Total Bilirubin AST ALT Alkaline Phosphatase Troponin I High Sens B-Natriuretic Peptide Total Protein Albumin TSH Random Cortisol Urine Color Urine Appearance Urine pH Ur Specific [place] Urine Protein Urine Glucose (UA) Urine Ketones Urine Blood Urine Nitrite Ur Leukocyte Esterase Influenza Type A (PCR) Influenza Type B (PCR) RSV RNA Qual (PCR) SARS-CoV-2 RNA (RT-PCR) Discharge Plan Discharge Patient Disposition: Left Against Medical Advice Discharge Diagnosis: L Lower Extremity Cellulitis, c/f Sepsis Referrals: Physician,Unknown J [Primary Care Provider] - 1 Week Discharge Medications: New sulfamethoxazole-trimethoprim [Bactrim DS] 800-160 mg tablet 1 tab PO BID Qty: 10 0RF midodrine 2.5 mg tablet 2.5 mg PO BID Qty: 10 0RF Rx Instructions: do not give last dose of day after 6PM or within 4 hrs of bedtime Continued Lipitor 40 mg tablet 40 mg PO BEDTIME oxcarbazepine 150 mg Tablet 150 mg PO BID divalproex 500 mg Tablet,Delayed Release (Dr/Ec) 500 mg PO BID tramadol 50 mg Tablet 50 mg PO Q6H PRN (Reason: Moderate Pain (Scale Score 5-6)) levothyroxine [Synthroid] 125 mcg Tablet 125 mcg PO DAILY haloperidol 10 mg Tablet 10 mg PO BID Rx Instructions: as part of 15mg dose aspirin 81 mg Tablet,Chewable 81 mg PO DAILY rifaximin 550 mg Tablet 550 mg PO BID Eliquis 5 mg tablet 5 mg PO BID Tylenol Ex Str Rapid Release 500 mg tablet 1,000 mg PO BID MDD 4 GM in 24 hours haloperidol 5 mg tablet 5 mg PO BID Rx Instructions: As part of 15mg dose latanoprost 1 drop drops 0.005 % ophthalmic (eye) BEDTIME sennosides [senna] 8.6 mg Tablet 8.6 mg PO BEDTIME PRN (Reason: Constipation) acetaminophen 325 mg Tablet 650 mg PO Q4H PRN (Reason: Fever Or Pain) dextromethorphan-guaifenesin [Tussin Cough DM] 10-100 mg/5 mL Liquid 10 ml PO Q4H PRN (Reason: Cough) diazepam 2 mg Tablet 2 mg PO BID bisacodyl 10 mg Suppository 10 mg SD DAILY PRN (Reason: Constipation) Rx Instructions: use if senna is ineffective ferrous sulfate 325 mg (65 mg iron) Tablet 325 mg PO BID Fleet Enema 19-7 gram/118 mL Enema 118 ml SD DAILY PRN (Reason: Constipation) Rx Instructions: USE ONLY IF BISACODYL SUPPOSITORY IS INEFFECTIVE docusate sodium 100 mg Capsule 100 mg PO BID trihexyphenidyl 2 mg Tablet 2 mg PO TID Rx Instructions: give with food (meal/snack) lactulose 10 gram/15 mL Solution 60 ml PO BID alum-mag hydroxide-simeth [Mylanta] 200-200-20 mg/5 mL Suspension 10 ml PO Q4H PRN (Reason: Acid Reflux) Rx Instructions: administer between meals and at bedtime naloxone [Narcan] 4 mg/actuation Wagner,Non-Aerosol 1 spray INTRANASAL Q3M PRN (Reason: OVERDOSE) Rx Instructions: spray 1 dose into ONE nostril; alternate nostrils w each dose until help arrives Held lisinopril 5 mg tablet 5 mg PO DAILY Hold Instructions: Resume on 08/18/23. Recommend Holding Until Resolution of Hypotension metoprolol succinate 25 mg Tablet Extended Release 24 Hr 25 mg PO DAILY Hold Instructions: Resume on 08/18/23. Recommend Holding Until Resolution of Hypotension timolol maleate 0.25 % Drops 1 drp OPHTHALMIC (EYE) DAILY Hold Instructions: Resume on 08/18/23. Recommend Holding Until Resolution of Hypotension Rx Instructions: 1 drop in both eyes one time a day Discharge Orders: Discharge Order (Routine); Ordered 08/17/23 Ordered By: Eleanor Benavides Diet: Advance to usual diet Activity on Discharge: As tolerated Print Language: Korean Care Plan Goals: You came to the emergency department with fever. We performed an evaluation, including an infectious work-up, and we are concerned that you have cellulitis of your leg. You were also found to have low blood pressure, which may be due to a dangerous state called sepsis and septic shock. We started you on antibiotics and planned to continue your care which included, but not limited to, continued antibiotics, a CT scan and MRI of your leg, possible surgery, and medications for your low blood pressure. You expressed understanding of this, but would still like to leave against medical advice. You expressed understanding that you may suffer significant disability and if you leave against medical advice. We are discharging you with antibiotics, trimethoprim-sulfamethoxazole, and medication for your low blood pressure, midodrine. We encourage you to take these medications as prescribed, to return to the emergency department at any point in time to continue with your care. Health Concerns: You came to the emergency department with fever. We performed an evaluation, including an infectious work-up, and we are concerned that you have cellulitis of your leg. You were also found to have low blood pressure, which may be due to a dangerous state called sepsis and septic shock. We started you on antibiotics and planned to continue your care which included, but not limited to, continued antibiotics, a CT scan and MRI of your leg, possible surgery, and medications for your low blood pressure. You expressed understanding of this, but would still like to leave against medical advice. You expressed understanding that you may suffer significant disability and if you leave against medical advice. We are discharging you with antibiotics, trimethoprim-sulfamethoxazole, and medication for your low blood pressure, midodrine. We encourage you to take these medications as prescribed, to return to the emergency department at any point in time to continue with your care. Plan of Treatment: You came to the emergency department with fever. We performed an evaluation, including an infectious work-up, and we are concerned that you have cellulitis of your leg. You were also found to have low blood pressure, which may be due to a dangerous state called sepsis and septic shock. We started you on antibiotics and planned to continue your care which included, but not limited to, continued antibiotics, a CT scan and MRI of your leg, possible surgery, and medications for your low blood pressure. You expressed understanding of this, but would still like to leave against medical advice. You expressed understanding that you may suffer significant disability and if you leave against medical advice. We are discharging you with antibiotics, trimethoprim-sulfamethoxazole, and medication for your low blood pressure, midodrine. We encourage you to take these medications as prescribed, to return to the emergency department at any point in time to continue with your care. Assessment: You came to the emergency department with fever. We performed an evaluation, including an infectious work-up, and we are concerned that you have cellulitis of your leg. You were also found to have low blood pressure, which may be due to a dangerous state called sepsis and septic shock. We started you on antibiotics and planned to continue your care which included, but not limited to, continued antibiotics, a CT scan and MRI of your leg, possible surgery, and medications for your low blood pressure. You expressed understanding of this, but would still like to leave against medical advice. You expressed understanding that you may suffer significant disability and if you leave against medical advice. We are discharging you with antibiotics, trimethoprim-sulfamethoxazole, and medication for your low blood pressure, midodrine. We encourage you to take these medications as prescribed, to return to the emergency department at any point in time to continue with your care.
--- NOTE | 2023-08-17 10:53 | MHC.CM.PN ---
Met with pt to review d/c planning needs: pt is a LTC resident of [facility] and has [place] Medicaid: Pt very agitated and requesting to return to [facility] despite medical condition: pt does not have a guardian or activated HCP and is able to make his own care determinations. Call placed to [facility] and discussed pt's refusal of treatment w/MAYA Renteria who is aware of pt's behaviors and states pt may return to facility. Discussed w/ICU MD: ATB to be cahnged to PO at d/c. [place] Medicaid contacted for authorization of [facility] transport: Invoice number [id number]. [facility] to transport at 11am: ICU care team aware and in agreement.
--- NOTE | 2023-08-17 11:29 | PM.EVENT ---
Event Note Date of Service: 08/17/23 Event Note: As described previously, Mr. Hopper has stated and re-stated that he would like to leave against medical advice despite multiple attempts to continue his care in the ICU. He continues to be alert, oriented, and desiring to leave, conversing with the sitter at his bedside. Mr. Hopper will be given discharge instructions with recommendations for his care. Time Spent With Patient Time: Total time managing care of this patient today ____ minutes.
== END 2023-08-17 12:10 | disposition left against medical advice (07) | DRG 720 ==
LOC: HO.ED 19:03 → HO.EDOVER 23:46 → HO.ICU 08-17 00:12
PROVIDERS: Nurse Practitioner Family; Admitting Provider Nurse Practitioner Family; Emergency Provider Internal Medicine; PCP Hospitalist; Visit Provider Internal Medicine Critical Care Medicine
DX: A41.9 Sepsis, unspecified organism (principal); I95.9 Hypotension, unspecified; L03.116 Cellulitis of left lower limb; E03.9 Hypothyroidism, unspecified; I25.10 Atherosclerotic heart disease of native coronary artery without angina pectoris; I10 Essential (primary) hypertension; F20.9 Schizophrenia, unspecified; J44.9 Chronic obstructive pulmonary disease, unspecified; Z20.822 Contact with and (suspected) exposure to COVID-19; Z79.82 Long term (current) use of aspirin; Z79.890 Hormone replacement therapy; Z79.899 Other long term (current) drug therapy
CPT/HCPCS: 0241U; 36415; 71045; 73610; 80048; 80053; 81003; 82040; 82533; 82803; 82947; 83605; 83735; 83880; 84100; 84443; 84484; 85025; 85610; 87040; 93005; 99285; C1758; J0692; J1650; J1720; J1885; J2060; J3370; P9047

== ENCOUNTER → 2023-08-16 17:45 | Outpatient (BNV) | payer MEDICAID, SELFPAY | PROVIDERS: Admitting Provider Nurse Practitioner Family; Emergency Provider Internal Medicine; Visit Provider Internal Medicine Cardiovascular Disease | DX: I48.92 Unspecified atrial flutter (principal); I44.2 Atrioventricular block, complete | CPT/HCPCS: 93010 ==

== ENCOUNTER 2023-08-16 23:15 | Outpatient (BNV) | payer MEDICAID, SELFPAY | END 2023-08-17 02:40 | PROVIDERS: Admitting Provider Nurse Practitioner Family; Emergency Provider Internal Medicine; Visit Provider Internal Medicine Cardiovascular Disease | DX: I48.92 Unspecified atrial flutter (principal); I44.2 Atrioventricular block, complete | CPT/HCPCS: 93010 ==

== ENCOUNTER → 2023-08-16 23:15 | Outpatient (BNV) | payer OTHER, SELFPAY | PROVIDERS: Admitting Provider Nurse Practitioner Family; Emergency Provider Internal Medicine; Visit Provider Nurse Practitioner Family | DX: A41.9 Sepsis, unspecified organism (principal); L03.116 Cellulitis of left lower limb; R41.82 Altered mental status, unspecified; Z53.29 Procedure and treatment not carried out because of patient's decision for other reasons | CPT/HCPCS: 36556; 99239; 99291 ==

== ENCOUNTER 2024-03-22 10:49 | Outpatient (AMB) | payer OTHER, SELFPAY ==
--- NOTE | 2024-03-22 10:48 | MHC.OFFVIS ---
Intake Visit Reasons: [facility] ref for R 2nd toe Intake Note: New patient presents for right second toe. Upon removing shoes and sock patient has black discoloration in between his right big toe and second toe. Dry. Accompanied by: Unknown Allergies penicillin V Allergy (Unknown, Verified 03/22/24 10:53) Unknown doxycycline Allergy (Verified 03/22/24 10:53) Unknown HPI HPI [employer] W[employer] ref for R 2nd toe: Details: Kayode, a pleasant 63-year-old male patient, presenting today with his caregiver from the facility that he lives at, [address], as a referral for an R2 eschar/gangrene. Patient has an extensive history peripheral artery disease as well as diabetes. He is status post left TMA, unknown date. He states he did not injure the right foot and does not walk. He is presenting in a wheelchair today. His caregiver is unable to tell us when they 1st noticed the toe. The patient denies any pain at the site of the R2. He states he has blood flow issues. He asked if we are just going to take his toe off today. He was seen in [facility] ER yesterday; we do not have any documentation about that and the caregiver did not know what occurred there. They did note that he needed a vascular surgery consult. COUNTS INCLUDE 234 BEDS AT THE [facility] Social History Unable to assess alcohol history related to: Unable to respond Patient Tobacco Use Status: Tobacco use Unknown Review of Systems Const Reports as per HPI and Denies weakness ENT Reports Normal hearing present and Denies dizziness Card Reports as per HPI, Denies chest pain, Denies chest pain at rest, Denies chest pain with activity, Denies dyspnea and Denies dyspnea on exertion Resp Reports as per HPI, Denies cough, Denies dyspnea and Denies dyspnea on exertion GI Reports as per HPI, Denies abdominal pain, Denies nausea and Denies vomiting Musc Denies numbness Skin/Breast Reports as per HPI, Denies erythema and Denies wounds Neuro Reports Normal hearing present, Denies dizziness, Denies numbness, Denies Sensory deficit (Neuro) and Denies weakness Psych Reports no additional complaints Endo Reports no additional complaints Physical Exam Const General: healthy appearing and no acute distress Orientation/consciousness: patient oriented x3 HEENT Head: Yes normal to inspection Ears: hearing grossly normal bilaterally Mouth: Normal oral and palatal mucosa present Resp Effort & Inspection: normal respiratory effort and able to speak in complete sentences Auscultation: clear to auscultation bilaterally Cardio Jugular venous distension: no JVD Rate: regular rate Rhythm: regular rhythm Heart sounds: S1 normal heart sound present and S2 normal heart sound present Bruits: no abdominal aortic bruits, no carotid bruits, no femoral bruits and no renal bruits Peripheral pulses: Peripheral pulses 2+ throughout GI Inspection: Yes normal to inspection Palpation (GI): No Abdominal aortic bruit present Skin General skin exam: no rashes or lesions noted Wounds: no wounds Hair: normal Neuro General: patient oriented x3 Cranial nerves: Yes Normal hearing present Cognition (Neuro): normal cognition Gait exam (Neuro): Normal gait present Motor exam (neuro): 5/5 motor strength present throughout Sensory Exam: No Sensory deficit (Neuro) Extrem Other: R2 toe: Darkened eschar noted on the anterior aspect of the R2 toe. Palpable DP pulses. Patient does not feel the toe when touching it. Patient denies any pain upon palpation. Difficult to separate the toes, ? due to edema Right lower extremity: +2 edema noted from [id number] to the tips of the toes. No lacerations or wounds noted. No ulcerations noted. General: Yes normal to inspection, Yes full ROM, Yes capillary refill normal and Yes normal gait Assessment & Plan Assessment & Plan (1) Peripheral arterial disease: Code(s): I73.9 - Peripheral vascular disease, unspecified Category: Medical Plan: Where he is presenting today as a referral for a R2 toe eschar, unknown when it was 1st noticed. He does have an extensive PVD history and has a history of a left TMA, well healed. He denies any pain at the site. He is nonambulatory at this point so unknown on claudication issues. The patient was questioning whether we need to amputate the toe; I discussed with him that we will need to get some imaging 1st and then we can decide a treatment plan after that. We will order an arterial duplex of the right lower extremity. I discussed with the patient that we will need to follow up with him after the ultrasound is completed. We discussed keeping the area clean and dry. We discussed maintaining a well-balanced diet. Thank you for the consult. If there are any questions or concerns, please do not hesitate to reach out to us. Orders: Orders US arterial duplex LE RT 1 Week I73.9 - Peripheral vascular disease, unspecified Coding Level of Care Code New Pt Level 4 (91811) Diagnoses Peripheral arterial disease I73.9
== END 2024-03-22 11:14 | disposition home or self-care (01) ==
LOC: HO.HVS 10:49
PROVIDERS: PCP Hospitalist; Visit Provider Physician Assistant Surgical
DX: I73.9 Peripheral vascular disease, unspecified (principal)
CPT/HCPCS: 99204

== ENCOUNTER → 2024-03-22 10:49 | Outpatient (BNVA) | payer OTHER, SELFPAY | PROVIDERS: PCP Hospitalist; Visit Provider Physician Assistant Surgical | DX: I73.9 Peripheral vascular disease, unspecified (principal); E11.9 Type 2 diabetes mellitus without complications; Z89.432 Acquired absence of left foot | CPT/HCPCS: 99202 ==

== ENCOUNTER 2024-03-26 12:36 | Emergency (ER) | payer MEDICAID, SELFPAY ==
--- NOTE | ~2024-03-26 | XR_ITS ---
EXAMINATION: XR FOOT, RIGHT CLINICAL INFORMATION: concern for osteo of the 2nd toe COMPARISON: None available. TECHNIQUE: AP, lateral, and oblique views of the right foot. FINDINGS: Pencil shaped deformities in the first second and third metatarsals degenerative changes. Soft tissue edema pattern in the distal foot. No subcutaneous emphysema. No osteolysis. No acute cortical disruption.. Sclerotic marginated lytic lesion in the distal metaphysis of the tibia. XR/XR foot RT min 3V IMPRESSION: Cellulitis/edema pattern distal right foot. Old deformities without gross acute fracture. Osteomyelitis cannot be excluded. Electronically signed by: Lucas Davis MD 03/26/2024 02:35 PM EST
[2024-03-26 12:50] VITALS: BP 135/82; PULSE 85; O2SAT 100
--- NOTE | 2024-03-26 12:57 | ED_ITS ---
HPI - General Adult General Chief complaint: General Medical Stated complaint: R foot infection Time Seen by Provider: 03/26/24 12:57 Source: patient and EMS Mode of arrival: EMS Limitations: no limitations History of Present Illness ED Provider: Jossy Leigh PA-C HPI narrative: Patient is a 63 year old assigned male at , residing at [facility], with a history of borderline personality disorder, DM, hypothyroidism, PVD, asthma, extrpyramidal and movement disorder, alcohol dependence, cocaine dependence, GERD, andrenocortical insufficiency, CAD, HTN, atrial fib, schizophrenia, COPD, metabolic encephalopathy, dysphasia, and left foot / ankle amputation, presenting to the emergency department today with possible right 2nd toe infection. Patient denies any dizziness, lightheadedness, abdominal pain, nausea, vomiting, fever, chills, blurry vision, double vision, loss of vision, chest pain, difficulty breathing, shortness of breath, back pain, night sweats, pain with urination, increased urinary frequency, increased urinary urgency, blood in his urine or stool, syncope or a near syncopal episode, recent trauma or falls, bowel incontinence, bladder incontinence, or any other complaints at this time. Relieving factors: none Exacerbating factors: none Associated symptoms: denies other symptoms Treatments prior to arrival: none Related Data Home Medications ?Medication ?Instructions ?Recorded ?Confirmed Eliquis 5 mg PO BID LLE DVT 08/17/23 08/17/23 Lipitor 40 mg PO BEDTIME 08/17/23 08/17/23 Tylenol Ex Str Rapid Release 1,000 mg PO BID bilateral leg pain 08/17/23 08/17/23 acetaminophen 325 mg tablet 650 mg PO Q4H PRN Fever Or Pain 08/17/23 08/17/23 aluminum-mag hydroxide-simethicone 10 ml PO Q4H PRN Acid Reflux 08/17/23 08/17/23 200 mg-200 mg-20 mg/5 mL oral susp aspirin 81 mg chewable tablet 81 mg PO DAILY Atrial Fibrillation 08/17/23 08/17/23 bisacodyl 10 mg rectal suppository 10 mg CA DAILY PRN Constipation 08/17/23 08/17/23 dextromethorphan-guaifenesin 10 10 ml PO Q4H PRN Cough 08/17/23 08/17/23 mg-100 mg/5 mL oral liquid diazepam 2 mg tablet 2 mg PO BID 08/17/23 08/17/23 divalproex 500 mg tablet,delayed 500 mg PO BID 08/17/23 08/17/23 release docusate sodium 100 mg capsule 100 mg PO BID 08/17/23 08/17/23 ferrous sulfate 325 mg (65 mg 325 mg PO BID 08/17/23 08/17/23 iron) tablet haloperidol 5 mg PO BID Schizophrenia 08/17/23 08/17/23 haloperidol 10 mg tablet 10 mg PO BID schizophrenia 08/17/23 08/17/23 lactulose 10 gram/15 mL oral 60 ml PO BID Constipation 08/17/23 08/17/23 solution latanoprost 0.005 % ophthalmic (eye) BEDTIME 08/17/23 08/17/23 Chronic angle-closure glaucoma, bilateral, severe levothyroxine 125 mcg tablet 125 mcg PO DAILY 08/17/23 08/17/23 (Synthroid) lisinopril 5 mg PO DAILY 08/17/23 08/17/23 metoprolol succinate 25 mg 25 mg PO DAILY 08/17/23 08/17/23 tablet,extended release 24 hr naloxone 4 mg/actuation nasal 1 spray intranasal Q3M PRN OVERDOSE 08/17/23 08/17/23 spray (Narcan) oxcarbazepine 150 mg tablet 150 mg PO BID 08/17/23 08/17/23 rifaximin 550 mg tablet 550 mg PO BID 08/17/23 08/17/23 sennosides 8.6 mg tablet (senna) 8.6 mg PO BEDTIME PRN Constipation 08/17/2303/31 sodium phosphates 19 gram-7 118 ml CA DAILY PRN Constipation 08/17/23 08/17/23 gram/118 mL enema (Fleet Enema) timolol maleate 0.25 % eye drops 1 drp ophthalmic (eye) DAILY 08/17/23 08/17/23 tramadol 50 mg tablet 50 mg PO Q6H PRN Moderate Pain 08/17/23 08/17/23 (Scale Score 5-6) trihexyphenidyl 2 mg tablet 2 mg PO TID 08/17/23 08/17/23 Allergies Allergy/AdvReac Type Severity Reaction Status Date / Time penicillin V Allergy Unknown Unknown Verified 03/26/24 13:02 doxycycline Allergy Unknown Verified 03/26/24 13:02 Review of Systems Constitutional: Constitutional: Reports no additional constitutional complaints, Denies chills, Denies fever(s) and Denies night sweats Eyes: Eyes: Reports no additional eye complaints, Denies blurry vision, Denies change in vision, Denies diplopia, Denies eye discharge, Denies loss of vision and Denies eye pain ENT: Denies dizziness Cardiovascular: Cardiovascular: Reports no additional cardiovascular complaints, Denies chest pain, Denies lightheadedness, Denies Loss of Consciousness and Denies dyspnea Respiratory: Respiratory: Reports no additional respiratory complaints and Denies dyspnea Gastrointestinal: Gastrointestinal: Reports no additional gastrointestinal complaints, Denies abdominal pain, Denies melena, Denies hematochezia, Denies change in bowel habits and Denies change in stool character Genitourinary: Genitourinary: Reports no additional male genitourinary complaints, Denies hematuria, Denies oliguria, Denies difficulty urinating, Denies dysuria, Denies urinary frequency, Denies urinary hesitancy, Denies urinary incontinence and Denies urinary urgency Musculoskeletal: Musculoskeletal: Reports no additional musculoskeletal co mplaints Comments: chronically missing left ankle / foot wound to right 2nd toe Neurologic: Denies dizziness and Denies loss of vision Psychiatric: Psychiatric: Reports no additional psychiatric complaints Endocrine: Endocrine: Reports no additional endocrine complaints Hematologic/Lymphatic: Hematologic/Lymphatic: Reports no additional hematologic/lymphatic complaints Allergic/Immunologic: Allergic/Immunologic: Reports no additional allergic/immunologic complaints PMFSH Past Medical History Attestation statement: The following information was validated with the patient. Source: old records reviewed and nursing notes reviewed Social History Social History Unable to assess alcohol history related to: Unable to respond Patient Tobacco Use Status: Tobacco use Unknown Advance Directives: No Advance Directives Information Provided: Yes Physical Exam ED Vital Signs: Vital Signs - 24 hr 03/26/24 12:59 03/26/24 13:16 03/26/24 16:00 Temperature 97.4 F 0 F L Pulse Rate 65 0 L Respiratory Rate 18 18 20 Blood Pressure 0/0 L 113/80 0/0 L Pulse Oximetry 99 0 L Oxygen Delivery Method Room Air BMI result Body Mass Index 28.7 Const General: cooperative, no acute distress, alert and awake Nutritional Appearance: well nourished Orientation/consciousness: patient oriented x3 Limitations: no limitations HENMT Head: Yes normal to inspection and Yes atraumatic Ears: hearing grossly normal bilaterally and external ears normal General nose exam: Normal external nose present, no nasal discharge noted and no epistaxis Face and sinus: Yes normal facial exam, No abrasion and No laceration Mouth: Normal oral and palatal mucosa present, no drooling and no muffled voice Eyes General: appearance normal, both eyes and all related structures Periorbital: periorbital findings normal Eyelids: Yes eyelids normal Conjunctivae: conjunctivae normal Pupils: Equal, round and reactive pupils present EOM: EOMs intact bilaterally Neck Neck: Yes normal visual inspection, Yes full ROM and Yes no lymphadenopathy Chest Chest palpation & inspection: normal inspection of the chest Resp Effort & Inspection: normal respiratory effort and able to speak in complete sentences GI Inspection: Yes normal to inspection Neuro General: patient oriented x3 and moves all extremities Cranial nerves: Yes Equal, round and reactive pupils present Cognition (Neuro): normal cognition Extrem Other: chronic left ankle / foot amputation - stump is well appearing dorsal right second toe has some darker areas of skin - possible necrosis vs. eschar General: Yes capillary refill normal Psych Appearance: grossly normal Mental Status: mental status grossly normal Affect: normal affect Attitude: cooperative Thought process: Normal thought process present Thought content: Normal thought content present Insight: Good insight present (Psych) Medications Administered Discontinued Medications Generic Name Dose Route Start Last Admin Trade Name Freq PRN Reason Stop Dose Admin Lorazepam 2 mg 03/26/24 13:05 03/26/24 13:10 Lorazepam 1 Mg Tablet PO 03/26/24 13:06 2 mg ONCE ONE Administration Medical Decision Making Medical Decision Making [facility] Narrative: Patient is a 63 year old assigned male at , residing at [facility], with a history of borderline personality disorder, DM, hypothyroidism, PVD, asthma, extrpyramidal and movement disorder, alcohol dependence, cocaine dependence, GERD, andrenocortical insufficiency, CAD, HTN, atrial fib, schizophrenia, COPD, metabolic encephalopathy, dysphasia, and left foot / ankle amputation, presenting to the emergency department today with possible right 2nd toe infection. Patient's physical exam was as noted in the physical exam portion of this note. Patient refused all blood work. Patient's right x-ray showed evidence of chronic, ongoing, osteomyelitis. I called and spoke to Dr. Saunders, the covering physician at [facility] to discuss the patient's refusal of all testing including CBC + CMP. He stated this is normal for the patient and given he is his own guardian - he has the right to do so. Stated he would accept him as a transfer back to [facility]. Differential Diagnosis Differential Diagnoses: The differential diagnosis associated with the presentation includes Chronic osteo Right 2nd toe cellulitis Admission/Observation Consideration of admission/observation: Escalation of care including admission/observation considered Patient would have been considered for admission had he participated in care / agreed to further work up and admission Consult Healthcare Provider Management of the patient was discussed with: Primary Care Provider (spoke to Dr. Saunders as noted in the MDM Rationale portion of this note.) Independent Interpretation I performed an independent interpretation of an: Plain X-Ray Interpretation: My interpretation is in agreement with the radiologist's impression of this imaging study. EXAMINATION: XR FOOT, RIGHT CLINICAL INFORMATION: concern for osteo of the 2nd toe COMPARISON: None available. TECHNIQUE: AP, lateral, and oblique views of the right foot. FINDINGS: Pencil shaped deformities in the first second and third metatarsals degenerative changes. Soft tissue edema pattern in the distal foot. No subcutaneous emphysema. No osteolysis. No acute cortical disruption.. Sclerotic marginated lytic lesion in the distal metaphysis of the tibia. XR/XR foot RT min 3V IMPRESSION: Cellulitis/edema pattern distal right foot. Old deformities without gross acute fracture. Osteomyelitis cannot be excluded. Electronically signed by: Lucas Davis MD 03/26/2024 02:35 PM EST Dictated By: Lucas Smith MD Signed By: Electronically signed by Lucas Gray MD 03/26/24 143 Radiology Impression Discussion of test interpretation with radiology: I have reviewed the radiologist's reading. Independent Historian Clinical information obtained from an independent historian. History obtained from or confirmed by: EMS (EMS provided additional history and confirmed the history provided by the patient.) Discharge Plan Discharge Clinical Impression: Refuses treatment, Chronic osteomyelitis Patient Disposition: Xfer [facility] Transfer Details: Back to [facility] Instructions: Osteomyelitis (ED) Additional Instructions: You refused all treatment. I called and spoke with Dr. Saunders who verbalized understanding and agreement with the patient being transferred back to [facility] for continued out patient follow up. Prescriptions: No Action Lipitor 40 mg tablet 40 mg PO BEDTIME lisinopril 5 mg tablet 5 mg PO DAILY metoprolol succinate 25 mg Tablet Extended Release 24 Hr 25 mg PO DAILY oxcarbazepine 150 mg Tablet 150 mg PO BID divalproex 500 mg Tablet,Delayed Release (Dr/Ec) 500 mg PO BID tramadol 50 mg Tablet 50 mg PO Q6H PRN (Reason: Moderate Pain (Scale Score 5-6)) timolol maleate 0.25 % Drops 1 drp OPHTHALMIC (EYE) DAILY Rx Instructions: 1 drop in both eyes one time a day levothyroxine [Synthroid] 125 mcg Tablet 125 mcg PO DAILY haloperidol 10 mg Tablet 10 mg PO BID Rx Instructions: as part of 15mg dose aspirin 81 mg Tablet,Chewable 81 mg PO DAILY rifaximin 550 mg Tablet 550 mg PO BID Eliquis 5 mg tablet 5 mg PO BID Tylenol Ex Str Rapid Release 500 mg tablet 1,000 mg PO BID MDD 4 GM in 24 hours haloperidol 5 mg tablet 5 mg PO BID Rx Instructions: As part of 15mg dose latanoprost 1 drop drops 0.005 % ophthalmic (eye) BEDTIME sennosides [senna] 8.6 mg Tablet 8.6 mg PO BEDTIME PRN (Reason: Constipation) acetaminophen 325 mg Tablet 650 mg PO Q4H PRN (Reason: Fever Or Pain) dextromethorphan-guaifenesin [Tussin Cough DM] 10-100 mg/5 mL Liquid 10 ml PO Q4H PRN (Reason: Cough) diazepam 2 mg Tablet 2 mg PO BID bisacodyl 10 mg Suppository 10 mg CA DAILY PRN (Reason: Constipation) Rx Instructions: use if senna is ineffective ferrous sulfate 325 mg (65 mg iron) Tablet 325 mg PO BID Fleet Enema 19-7 gram/118 mL Enema 118 ml CA DAILY PRN (Reason: Constipation) Rx Instructions: USE ONLY IF BISACODYL SUPPOSITORY IS INEFFECTIVE docusate sodium 100 mg Capsule 100 mg PO BID trihexyphenidyl 2 mg Tablet 2 mg PO TID Rx Instructions: give with food (meal/snack) lactulose 10 gram/15 mL Solution 60 ml PO BID alum-mag hydroxide-simeth [Mylanta] 200-200-20 mg/5 mL Suspension 10 ml PO Q4H PRN (Reason: Acid Reflux) Rx Instructions: administer between meals and at bedtime naloxone [Narcan] 4 mg/actuation [place],Non-Aerosol 1 spray INTRANASAL Q3M PRN (Reason: OVERDOSE) Rx Instructions: spray 1 dose into ONE nostril; alternate nostrils w each dose until help arr aliya Referrals: Yuri Saunders DO [Primary Care Provider] - Interventions: ED Discharge Assessment Last Done: 03/26/24 16:00 Discharge Date/Time: 03/26/24 16:01 Print Language: Malaysian
[2024-03-26 12:59] VITALS: BP 0/0; RESP 18; BMI 28.7
[2024-03-26] MEDS: LORazepam 1 MG TABLET 2 MG PO (13:10)
[2024-03-26 13:16] VITALS: BP 113/80; PULSE 65; RESP 18; TEMP 36.3; O2SAT 99
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
[2024-03-26 16:00] VITALS: BP 0/0; PULSE 0; RESP 20; TEMP -17.7; TEMP 0; O2SAT 0
== END 2024-03-26 16:01 ==
PROVIDERS: Emergency Provider Emergency Medicine; PCP Hospitalist
DX: M86.671 Other chronic osteomyelitis, right ankle and foot (principal); Z53.29 Procedure and treatment not carried out because of patient's decision for other reasons
CPT/HCPCS: 73630; 99282; 99283

== ENCOUNTER → 2024-03-26 13:05 | Outpatient (BNV) | payer MEDICAID, SELFPAY | PROVIDERS: Emergency Provider Emergency Medicine; PCP Hospitalist; Visit Provider Radiology Diagnostic Radiology | DX: L03.115 Cellulitis of right lower limb (principal) | CPT/HCPCS: 73630 ==

== ENCOUNTER 2024-04-03 09:00 | Outpatient (REF) | payer MEDICAID, SELFPAY | END 2024-04-03 09:01 | disposition home or self-care (01) | LOC: HO.US 09:00 | PROVIDERS: PCP Hospitalist; Visit Provider Physician Assistant Surgical | DX: I73.9 Peripheral vascular disease, unspecified (principal) | CPT/HCPCS: 93926 ==

== ENCOUNTER 2024-07-30 14:59 | Outpatient (AMB) | payer MEDICAID, SELFPAY ==
[2024-07-30 15:03] VITALS: BMI 28.7
--- NOTE | 2024-07-30 15:03 | A.OFFVIS_ITS ---
Vital Signs 07/30/24 15:03 Height 5 ft 10 in Weight 200 lb BMI 28.7 Intake Visit Reasons: Follow Up 04/03/24 arterial US Intake Note: follow up ARterial US 04/03/24, pt states wound has healed and his main complaint is bilateral hand coldness that causes his joints to stiffen and is unable and eat. Accompanied by: facility [employer] Allergies penicillin V Allergy (Unknown, Verified 07/30/24 15:12) Unknown doxycycline Allergy (Verified 07/30/24 15:12) Unknown HPI HPI Follow Up 04/03/24 arterial US: Details: Very pleasant 63-year-old gentleman presents for follow-up from a facility. He is at [facility] in [place]. He had previous nonhealing ulcer/eschar on the right 2nd toe. It left leg has a transmetatarsal amputation. Appears to be doing relatively well and has had no interval issues. He was more fixated on his cold upper and lower extremities but in general appears to be doing well. On general evaluation he is mostly wheelchair-bound and only use his his legs for transfer. He now presents to us for vascular follow-up with noninvasive right lower extremity ultrasound testing. [facility] Social History Unable to assess alcohol history related to: Unable to respond Patient Tobacco Use Status: Tobacco use Unknown Review of Systems Const All systems reviewed & are unremarkable except as noted in HPI and below Reports no additional complaints ENT Reports Normal hearing present Card Denies chest pain, Denies chest pain at rest, Denies chest pain with activity and Denies pedal edema Resp Denies cough GI Denies abdominal pain Musc Denies abnormal gait, Denies muscle cramps and Denies radiating pain into limb Skin/Breast Denies skin ulcer and Denies wounds Neuro Reports Normal hearing present and Denies abnormal gait Psych Reports no additional complaints Physical Exam Vital Signs: BMI result Body Mass Index 28.7 Const General: cooperative, healthy appearing and comfortable Orientation/consciousness: oriented to person, oriented to place and oriented to time HEENT Head: Yes normal to inspection Neck Neck: Yes normal visual inspection Carotids: no bruits Chest Chest palpation & inspection: normal inspection of the chest Resp Effort & Inspection: normal respiratory effort and able to speak in complete sentences Auscultation: clear to auscultation bilaterally, no crackles, no rales, no rhonchi and no wheezes Cardio Rate: regular rate Rhythm: regular rhythm Heart sounds: S1 normal heart sound present and S2 normal heart sound present Bruits: no carotid bruits Peripheral pulses: Peripheral pulses 2+ throughout GI Inspection: Yes normal to inspection Skin Wounds: no wounds Hair: normal Neuro General: oriented to person, oriented to place and oriented to time Cranial nerves: Yes CN's II-XII intact bilaterally and Yes Normal hearing present Cognition (Neuro): normal cognition Motor exam (neuro): 5/5 motor strength present throughout Extrem Other: venous exam: No significant superficial varicosities or spider telangiectasias, minimal edema General: No clubbing, No cyanosis and No edema Psych Appearance: grossly normal Mental Status: mental status grossly normal Speech and movement: Normal speech and movement present Results Reviewed Results Reviewed: Noninvasive testing dated 04/03/2024 demonstrates hemodynamically significant stenosis in the right SFA. Written report and images were reviewed. Assessment & Plan Assessment & Plan (1) Peripheral arterial disease: Code(s): I73.9 - Peripheral vascular disease, unspecified Category: Medical Plan: In short patient has stable peripheral vascular disease. He is minimally ambulatory and leads mostly a sedentary lifestyle. Even though he has some evidence of peripheral vascular disease at the current time his wounds remain healed. Due to his overall status I would like to manage him as conservatively as possible. I have scheduled him for 6 month arterial follow-up. Thank you for allowing us to assist in his care. Orders: Orders US arterial duplex LE BI 6 Months I73.9 - Peripheral vascular disease, unspecified Coding Level of Care Code Est Pt Level 4 (81316) Diagnoses Peripheral arterial disease I73.9
--- OUTSIDE RECORDS SUMMARY | 2024-07-30 18:44 | XMS_ITS | Encounter Summary ---
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 Name Role Phone Unavailable Primary Care Provider Unavailabl e Encounter Details Date Type Department Care Team (Late st Contact Info) Description 07/03/2024 Lab Requisition [facility] [address] [place] [id number] Yuri Saunders MD [address] [place] [address] Dr [address] [place], [place] Schizophrenia, unspecified (CMS/HCC) Social History Tobacco Use Types Packs/Day Years Used Date Smoking Tobacco: Never Assessed Sex and Gender Information Value Date Recorded Sex Assigned at Not on file Legal Sex Male 10:10 AM EST Gender Identity Not on file Sexual Orientation Not on file documented as of this encounter Plan of Treatment Not on file documented as of this encounter Procedures Procedure Name Priority Date/Time Associated Diagnosis Comments CBC WITH AUTO DIFFERENTIAL Routine 07/03/2024 6:35 PM EST Schizophrenia, unspecified (CMS/HCC) CBC AND DIFFERENTIAL Routine 07/03/2024 6:35 PM EST Schizophrenia, unspecified (CMS/HCC) documented in this encounter Results * (ABNORMAL) CBC auto differential (07/03/2024 6:35 PM EST) WBC 7.2 4.8 - 10.8 K/[facility] LAB HEMETOLOGY METHOD 07/03/2024 7:28 PM EST [facility] LAB RBC 4.40(L) 4.50 - 5.50 M/[facility] LAB HEMETOLOGY METHOD 07/03/2024 7:28 PM EST [facility] LAB Hemoglobin 11.2(L) 13.5 - 17.5 g/dL LAB HEMETOLOGY METHOD 07/03/2024 7:28 PM [facility] LAB Hematocrit 36.0(L) 42.0 - 54.0 % LAB HEMETOLOGY METHOD 07/03/2024 7:28 PM [facility] LAB MCV 82.6 79.0 - 98.0 FL LAB HEMETOLOGY METHOD 07/03/2024 7:28 PM [facility] LAB MCH 25.7(L) 27.0 - 32.0 pcg LAB HEMETOLOGY METHOD 07/03/2024 7:28 PM [facility] LAB MCHC 31.1(L) 32.0 - 37.0 g/dL LAB HEMETOLOGY METHOD 07/03/2024 7:28 PM [facility] RDW 17.2(H) 11.0 - 15.0 % LAB HEMETOLOGY METHOD 07/03/2024 7:28 PM [facility] Platelets 363 130 - 400 K/mcL LAB HEMETOLOGY METHOD 07/03/2024 7:28 PM [facility] LAB MPV 8.9 7.0 - 11.0 FL LAB HEMETOLOGY METHOD 07/03/2024 7:28 PM [facility] LAB NRBC 0.0 <1.0 % LAB HEMETOLOGY METHOD 07/03/2024 7:28 PM [facility] LAB NRBC Absolute 0.00 <0.10 K/mcL LAB HEMETOLOGY METHOD 07/03/2024 7:28 PM [facility] Neutrophils Relative 67.5 % LAB HEMETOLOGY METHOD 07/03/2024 7:28 PM [facility] Lymphocytes Relative 21.3 % LAB HEMETOLOGY METHOD 07/03/2024 7:28 PM [facility] Monocytes Relative 9.4 % LAB HEMETOLOGY METHOD 07/03/2024 7:28 PM [facility] Eosinophils Relative 1.1 % LAB HEMETOLOGY METHOD 07/03/2024 7:28 PM EST [facility] LAB Basophils Relative 0.4 % LAB HEMETOLOGY METHOD 07/03/2024 7:28 PM [facility] Immature Granulocytes Relative 0.3 % LAB HEMETOLOGY METHOD 07/03/2024 7:28 PM [facility] Neutrophils Absolute 4.87 1.50 - 7.00 K/mcL LAB HEMETOLOGY METHOD 07/03/2024 7:28 PM [facility] Lymphocytes Absolute 1.54 1.00 - 5.00 K/mcL LAB HEMETOLOGY METHOD 07/03/2024 7:28 PM [facility] Monocytes Absolute 0.68 0.20 - 1.00 K/mcL LAB HEMETOLOGY METHOD 07/03/2024 7:28 PM [facility] Eosinophils Absolute 0.08 0.00 - 0.50 K/mcL LAB HEMETOLOGY METHOD 07/03/2024 7:28 PM [facility] Basophils Absolute 0.03 0.00 - 0.20 K/mcL LAB HEMETOLOGY METHOD 07/03/2024 7:28 PM [facility] Immature Granulocytes Absolute 0.02 0.00 - 0.03 K/mcL LAB HEMETOLOGY METHOD 07/03/2024 7:28 PM [facility] Blood Venous blood specimen / Unknown 07/03/2024 6:35 PM EST 07/03/2024 7:06 PM EST us Yuri Saunders MD LAB BLOOD ORDERABLES Final Resul t [facility] [address] [place] [address], documented in this encounter Visit Diagnoses Diagnosis Schizophrenia, unspecified documented in this encounter
--- OUTSIDE RECORDS SUMMARY | 2024-07-30 18:45 | XMS_ITS | Clinical Summary ---
Author Organization [address] [facility] Address [address] [place] [address] Phone Care Team Providers Care Ramp Boss Name Role Phone Unavailable Primary Care Provider Unavailabl e Encounters Date Type Department Care Team Description 07/03/2024 Lab Requisition [facility] - Main Lab [address] [facility] [place] [address] Yuri Saunders MD Schizophrenia, unspecified (CMS/HCC) from Last 3 Months Social History Tobacco Use Types Packs/Day Years Used Date Smoking Tobacco: Never Assessed Sex and Gender Information Value Date Recorded Sex Assigned at Not on file Legal Sex Male 10:10 AM EST Gender Identity Not on file Sexual Orientation Not on file Plan of Treatment Health Maintenance Due Date Last Done Comments DTaP,Tdap,and Td Vaccines (1 - Tdap) 1980 Pneumococcal Vaccine: 50+ Ye ars (1 of 1 - PCV) 08/24/2011 Zoster Vaccines (1 of 2) 08/24/2011 Cholesterol Screening (Lipid Panel) 04/05/2022 Colorectal Cancer Screening: Colonoscopy 04/05/2022 Depression Screening 04/05/2022 HIV Screening 04/05/2022 Hepatitis C Screening 04/05/2022 Social Influencers of Health Screening 04/05/2022 COVID-19 Vaccine (1 - 2023-2 5 season) 2024 Influenza Vaccine (#1) 2024 RSV Immunization Patients 60 + Years Old (1 - 1-dose 75+ series) 2036 HIB Vaccines Aged Out No longer eligi ble based on patient's age to complete this topic HPV Vaccines Aged Out No longer eligi ble based on patient's age to complete this topic Hepatitis A Vaccines Aged Out No long er eligible based on patient's age to complete this topic Hepatitis B Vaccines Aged Out No long er eligible based on patient's age to complete this topic IPV Vaccines Aged Out No longer eligi ble based on patient's age to complete this topic MMR Vaccines Aged Out No longer eligi ble based on patient's age to complete this topic Meningococcal ACWY Vaccine Aged Out N o longer eligible based on patient's age to complete this topic Meningococcal B Vacine Aged Out No lo nger eligible based on patient's age to complete this topic Pneumococcal Vaccine: Pediat rics (0 to 5 Years) and At-Risk Patients (6 to 64 Years) Aged Out No longer eligible b ased on patient's age to complete this topic RSV Immunization Patients Un rebecca 20 months Aged Out No longer eligible b ased on patient's age to complete this topic Varicella Vaccines Aged Out No longer eligible based on patient's age to complete this topic Procedures Procedure Name Priority Date/Time Associated Diagnosis Comments CBC WITH AUTO DIFFERENTIAL Routine 07/03/2024 6:35 PM EST Schizophrenia, unspecified (CMS/HCC) CBC AND DIFFERENTIAL Routine 07/03/2024 6:35 PM EST Schizophrenia, unspecified ([facility]/HCC) from Last 3 Months Results * (ABNORMAL) CBC auto differential (07/03/2024 6:35 PM EST) WBC 7.2 4.8 - 10.8 K/mcL LAB HEMETOLOGY METHOD 07/03/2024 7:28 PM [facility] RBC 4.40(L) 4.50 - 5.50 M/mcL LAB HEMETOLOGY METHOD 07/03/2024 7:28 PM [facility] Hemoglobin 11.2(L) 13.5 - 17.5 g/dL LAB HEMETOLOGY METHOD 07/03/2024 7:28 PM [facility] Hematocrit 36.0(L) 42.0 - 54.0 % LAB HEMETOLOGY METHOD 07/03/2024 7:28 PM [facility] MCV 82.6 79.0 - 98.0 FL LAB HEMETOLOGY METHOD 07/03/2024 7:28 PM [facility] MCH 25.7(L) 27.0 - 32.0 pcg LAB HEMETOLOGY METHOD 07/03/2024 7:28 PM [facility] MCHC 31.1(L) 32.0 - 37.0 g/dL LAB HEMETOLOGY METHOD 07/03/2024 7:28 PM [facility] RDW 17.2(H) 11.0 - 15.0 % LAB HEMETOLOGY METHOD 07/03/2024 7:28 PM [facility] Platelets 363 130 - 400 K/mcL LAB HEMETOLOGY METHOD 07/03/2024 7:28 PM [facility] MPV 8.9 7.0 - 11.0 FL LAB HEMETOLOGY METHOD 07/03/2024 7:28 PM [facility] NRBC 0.0 <1.0 % LAB HEMETOLOGY METHOD 07/03/2024 7:28 PM [facility] NRBC Absolute 0.00 <0.10 K/mcL LAB HEMETOLOGY METHOD 07/03/2024 7:28 PM [facility] Neutrophils Relative 67.5 % LAB HEMETOLOGY METHOD 07/03/2024 7:28 PM [facility] Lymphocytes Relative 21.3 % LAB HEMETOLOGY METHOD 07/03/2024 7:28 PM [facility] Monocytes Relative 9.4 % LAB HEMETOLOGY METHOD 07/03/2024 7:28 PM [facility] Eosinophils Relative 1.1 % LAB HEMETOLOGY METHOD 07/03/2024 7:28 PM [facility] Basophils Relative 0.4 % LAB HEMETOLOGY METHOD 07/03/2024 7:28 PM [facility] Immature Granulocytes Relative 0.3 % LAB HEMETOLOGY METHOD 07/03/2024 7:28 PM [facility] Neutrophils Absolute 4.87 1.50 - 7.00 K/mcL LAB HEMETOLOGY METHOD 07/03/2024 7:28 PM EST [facility] Lymphocytes Absolute 1.54 1.00 - 5.00 K/mcL LAB HEMETOLOGY METHOD 07/03/2024 7:28 PM EST [facility] Monocytes Absolute 0.68 0.20 - 1.00 K/mcL LAB HEMETOLOGY METHOD 07/03/2024 7:28 PM EST [facility] Eosinophils Absolute 0.08 0.00 - 0.50 K/mcL LAB HEMETOLOGY METHOD 07/03/2024 7:28 PM EST [facility] Basophils Absolute 0.03 0.00 - 0.20 K/mcL LAB HEMETOLOGY METHOD 07/03/2024 7:28 PM EST [facility] Immature Granulocytes Absolute 0.02 0.00 - 0.03 K/mcL LAB HEMETOLOGY METHOD 07/03/2024 7:28 PM EST [facility] Blood Venous blood specimen / Unknown 07/03/2024 6:35 PM EST 07/03/2024 7:06 PM EST us Yuri Saunders MD LAB BLOOD ORDERABLES Final Resul t [facility] [address] [place] [address], from Last 3 Months
== END 2024-07-30 15:31 | disposition home or self-care (01) ==
LOC: HO.HVS 15:00
PROVIDERS: PCP Hospitalist; Visit Provider Surgery Vascular Surgery
DX: I73.9 Peripheral vascular disease, unspecified (principal)
CPT/HCPCS: 99214

== ENCOUNTER → 2024-07-30 14:59 | Outpatient (BNVA) | payer MEDICAID, SELFPAY | PROVIDERS: PCP Hospitalist; Visit Provider Surgery Vascular Surgery | DX: I73.9 Peripheral vascular disease, unspecified (principal); Z89.422 Acquired absence of other left toe(s) | CPT/HCPCS: 99212 ==

== ENCOUNTER 2024-12-09 14:43 | Outpatient (AMB) | payer MEDICAID, SELFPAY ==
--- NOTE | 2024-12-09 14:45 | MHC.OFFVIS ---
Vital Signs 12/09/24 14:46 Height 5 ft 10 in Weight 200 lb BMI 28.7 Intake Visit Reasons: New Pt - B/L hand pain Intake Note: Kayode is a 64 year old right hand dominant male who presents today, with a worker, as a new patient for evaluation of bilateral hand pain and stiffness. Patient was seen by [facility] on 07/30/24 where he complained of bilateral hand coldness that was causing his joints to stiffen, making it difficult to eat. Patient reports today he continue to have the same issue. The worker who is with him states he even drops the soap and is unable to feed himself. Denies previous surgeries to the hands. Patient resides at [facility]. Allergies penicillin V Allergy (Unknown, Verified 12/09/24 14:53) Unknown doxycycline Allergy (Verified 12/09/24 14:53) Unknown HPI HPI New Pt - B/L hand pain: Details: Kayode is a 64 year old right hand dominant male who presents today, with a worker, as a new patient for evaluation of bilateral hand pain and stiffness. Patient was seen by [facility] on 07/30/24 where he complained of bilateral hand coldness that was causing his joints to stiffen, making it difficult to eat. Patient reports today he continue to have the same issue. Patient reports constant numbness and tingling in bilateral hands as well, and feels that this is likely contributing to his weakness. The worker who is with him states he even drops the soap and is unable to feed himself. Denies previous surgeries to the hands. Patient resides at [facility]. [facility] Social History Unable to assess alcohol history related to: Unable to respond Patient Tobacco Use Status: Tobacco use Unknown Review of Systems Const All systems reviewed & are unremarkable except as noted in HPI and below Physical Exam Vital Signs: BMI result Body Mass Index 28.7 Extrem Other: Neuro: Diminished sensation of the tips of all digits of bilateral hands in the office today No thenar or intrinsic wasting. Good APB muscle firing and good finger cross. Vascular: Capillary refill brisk. ROM: Patient can make a fist and extend all their digits. Skin: No lacerations or abrasions noted. General: No ecchymosis. No erythema or evidence of infection. Assessment & Plan Assessment & Plan (1) Numbness and tingling in both hands: Code(s): R20.0 - Anesthesia of skin; R20.2 - Paresthesia of skin Category: Medical Plan 1. Numbness, tingling, pain, weakness of bilateral hands Symptoms constant, daily, worse at night At this time, patient is referred for EMG and nerve conduction study for assessment of the health of the nerves of bilateral upper extremities, as I feel that carpal and/or cubital tunnel syndromes may be contributing significantly to his symptoms at this time Patient is also advised he should work with occupational therapy at [facility] where he resides to improve the range of motion of the strength of both of his hands Patient will follow-up after EMG and nerve conduction study for results review and discussion of further treatment options if indicated Patient understands this in his amenable to this plan Orders: Orders NE nerve conduction velocity Today R20.0 - Anesthesia of skin, R20.2 - Paresthesia of skin NE electromyogram (EMG) Today R20.0 - Anesthesia of skin, R20.2 - Paresthesia of skin Coding Level of Care Code New Pt Level 3 (68663) Diagnoses Numbness and tingling in both hands R20.0; R20.2
[2024-12-09 14:46] VITALS: BMI 28.7
--- OUTSIDE RECORDS SUMMARY | 2024-12-09 14:47 | XMS_ITS | Encounter Summary ---
Author Organization [facility] Address [address] [place] [address] Care Team Providers Care Upholstery Instructor Name Role Phone Yuri Saunders MD Primary Care Provider [phone] Encounter Details Date Type Department Care Team (Late st Contact Info) Description 11/07/[address] [facility] - Main Lab [address] [facility] [place] [address] Yuri Saunders MD [address] [place] [address] Dr [address] [place], [place] Hematuria, unspecified Social History Tobacco Use Types Packs/Day Years [...] Procedure Name Priority Date/Time Associated Diagnosis Comments URINALYSIS WITH REFLEX MICROSCOPIC Routine 11/07/2024 11:20 AM EDT Hematuria, unspecified RUEDA URINE CULTURE TUBE Routine 11/07/2024 11:20 AM EDT Hematuria, unspecified URINALYSIS WITH REFLEX MICROSCOPIC Routine 11/07/2024 11:20 AM EDT Hematuria, unspecified documented in this encounter Results * (ABNORMAL) Urinalysis with reflex microscopic (11/07/2024 11:20 AM EDT) Specific [place] Urine 1.014 1.003 - 1.030 LAB URINALYSIS - AUTOMATED METHOD 11/07/2024 1:50 PM EDT [facility] pH, Urine 8.5(A) 5.0 - 8.0 pH LAB URINALYSIS - AUTOMATED METHOD 11/07/2024 1:50 PM [facility] Leukocytes, Urine Trace(A) Negative LAB URINALYSIS - AUTOMATED METHOD 11/07/2024 1:50 PM [facility] Nitrite, Urine Negative Negative LAB URINALYSIS - AUTOMATED METHOD 11/07/2024 1:50 PM [facility] Protein, Urine 100(A) <=Trace mg/dL LAB URINALYSIS - AUTOMATED METHOD 11/07/2024 1:50 PM [facility] Glucose, Urine Negative Negative mg/dL LAB URINALYSIS - AUTOMATED METHOD 11/07/2024 1:50 PM [facility] Ketones, Urine Negative Negative mg/dL LAB URINALYSIS - AUTOMATED METHOD 11/07/2024 1:50 PM [facility] Urobilinogen , Urine 1.0 0.2 - 1.0 mg/dL LAB URINALYSIS - AUTOMATED METHOD 11/07/2024 1:50 PM [facility] Bilirubin, Urine Negative Negative LAB URINALYSIS - AUTOMATED METHOD 11/07/2024 1:50 PM [facility] Blood, Urine Small(A) Negative LAB URINALYSIS - AUTOMATED METHOD 11/07/2024 1:50 PM [facility] RBC, Urine 1,634.6(H) 0 - 4 /HPF LAB URINALYSIS - AUTOMATED METHOD 11/07/2024 1:50 PM [facility] WBC, Urine 114.6(H) 0 - 4 /HPF LAB URINALYSIS - AUTOMATED METHOD 11/07/2024 1:50 PM [facility] Squamous Epithelial, Urine 9 0 - 60 /LPF LAB URINALYSIS - AUTOMATED METHOD 11/07/2024 1:50 PM [facility] Bacteria, Urine Negative Negative /HPF LAB URINALYSIS - AUTOMATED METHOD 11/07/2024 1:50 PM [facility] Hyaline Casts, Urine 8.3(H) 0 - 3 /LPF LAB URINALYSIS - AUTOMATED METHOD 11/07/2024 1:50 PM EDT [facility] Urine Urine specimen obtained by clean catch procedure / Unknown 11/07/2024 11:20 AM EDT 11/07/2024 12:50 PM EDT us Yuri Saunders MD LAB URINE ORDERABLES Final Resul t Performing Organization Address City/[facility]/ZIP Co de Phone Number [facility] [address] [place] [address], [place] [phone] * Rueda urine culture tube (11/07/2024 11:20 AM EDT) Extra Tube Hold for add-ons. 11/07/2024 2:02 PM EDT [facility] Comment:Auto resulted. Urine Urine specimen obtained by clean catch procedure / Unknown 11/07/2024 11:20 AM EDT 11/07/2024 12:50 PM EDT us Yuri Saunders MD LAB URINE ORDERABLES Final Resul t Performing Organization Address [facility] Co de Phone Number [facility] [address] [place] [address], [place] [phone] documented in this encounter Visit Diagnoses Diagnosis Hematuria, unspecified documented in this encounter Care Teams Upholstery Instructor Relationship Specialty Start Date End Date Yuri Saunders MD [address] [place] [address] Dr [address] MELODIE Wolf PCP - General Internal Medicine 08/06/24 documented as of this encounter
== END 2024-12-09 15:24 | disposition home or self-care (01) ==
LOC: HO.HOS 14:44
PROVIDERS: PCP Hospitalist
DX: R20.0 Anesthesia of skin (principal); R20.2 Paresthesia of skin
CPT/HCPCS: 99203

== ENCOUNTER → 2024-12-09 14:43 | Outpatient (BNVA) | payer MEDICAID, SELFPAY | PROVIDERS: PCP Hospitalist | DX: M79.641 Pain in right hand (principal); M79.642 Pain in left hand; R20.0 Anesthesia of skin; R20.2 Paresthesia of skin | CPT/HCPCS: 99202 ==

== ENCOUNTER 2025-02-07 14:28 | Outpatient (REF) | payer MEDICAID, SELFPAY ==
--- OUTSIDE RECORDS SUMMARY | 2025-02-07 14:33 | XMS_ITS | Encounter Summary ---
Author Organization [facility] Address [address] [place] [address] Care Team Providers Care Surgical Garment Assembly Supervisor Name Role Phone Yuri Saunders MD Primary Care Provider [phone] Encounter Details Date Type Department Care Team (Late st Contact Info) Description 10/18/2024 Lab Requisition [facility] - Main Lab [address] [place] [address] Yuri Saunders MD [address] [place] [address] [address] [place], [place] Other terminal block assembler (current) drug therapy Social History Tobacco Use Types Packs/Day Years [...] Procedure Name Priority Date/Time Associated Diagnosis Comments PROSTATE SPECIFIC ANTIGEN SCREEN Routine 10/18/2024 12:00 AM EDT Other terminal block assembler (current) drug therapy CBC WITH AUTO DIFFERENTIAL Routine 10/18/2024 12:00 AM EDT Other fdc (current) drug therapy CBC AND DIFFERENTIAL Routine 10/18/2024 12:00 AM EDT Other fdc (current) drug therapy documented in this encounter Results * (ABNORMAL) CBC auto differential (10/18/2024 12:00 AM EDT) WBC 6.2 4.8 - 10.8 K/[facility] LAB HEMETOLOGY METHOD 10/18/2024 7:17 PM EDT [facility] RBC 4.20(L) 4.50 - 5.50 M/[facility] LAB HEMETOLOGY [facility] Hemoglobin 11.0(L) 13.5 - 17.5 g/dL LAB HEMETOLOGY METHOD 10/18/2024 7[facility] Hematocrit 35.8(L) 42.0 - 54.0 % LAB HEMETOLOGY METHOD 10/18/2024 7:[facility] MCV 85.6 79.0 - 98.0 FL LAB HEMETOLOGY METHOD 10/18/2024 7:[facility] MCH 26.3(L) 27.0 - 32.0 pcg LAB HEMETOLOGY METHOD 10/18/2024 7:17 PM [facility] MCHC 30.7(L) 32.0 - 37.0 g/dL LAB HEMETOLOGY METHOD 10/18/2024 7:17 PM [facility] RDW 16.9(H) 11.0 - 15.0 % LAB HEMETOLOGY METHOD 10/18/2024 7:[facility] Platelets 271 130 - 400 K/mcL LAB HEMETOLOGY METHOD 10/18/2024 7:17 PM [facility] MPV 9.4 7.0 - 11.0 FL LAB HEMETOLOGY METHOD 10/18/2024 7:[facility] NRBC 0.0 <1.0 % LAB HEMETOLOGY METHOD 10/18/2024 7:17 PM [facility] NRBC Absolute 0.00 <0.10 K/mcL LAB HEMETOLOGY METHOD 10/18/2024 7:17 [facility] Neutrophils Relative 64.3 % LAB HEMETOLOGY METHOD 10/18/2024 7:17 PM [facility] Lymphocytes Relative 20.0 % LAB HEMETOLOGY METHOD 10/18/2024 7:17 PM EDT [facility] Monocytes Relative 13.6 % LAB HEMETOLOGY METHOD 10/18/2024 7:17 PM EDT [facility] Eosinophils Relative 1.5 % LAB HEMETOLOGY METHOD 10/18[facility]2024 7[facility] Basophils Relative 0.3 % LAB HEMETOLOGY METHOD 10/18/2024 7:17 PM EDT [facility] Immature Granulocytes Relative 0.3 % LAB HEMETOLOGY METHOD 10/18/2024 7:17 PM EDT [facility] Neutrophils Absolute 3.98 1.50 - 7.00 K/mcL LAB HEMETOLOGY METHOD 10/18/2024 7[facility] Lymphocytes Absolute 1.24 1.00 - 5.00 K/mcL LAB HEMETOLOGY METHOD 10/18/2024 7:17 PM EDT [facility] Monocytes Absolute 0.84 0.20 - 1.00 K/mcL LAB HEMETOLOGY METHOD 10/18/2024 7:17 PM EDT [facility] Eosinophils Absolute 0.09 0.00 - 0.50 K/mcL LAB HEMETOLOGY METHOD 10/18/2024 7:17 PM [facility] Basophils Absolute 0.02 0.00 - 0.20 K/mcL LAB HEMETOLOGY METHOD 10/18/2024 7:17 PM EDT [facility] Immature Granulocytes Absolute 0.02 0.00 - 0.03 K/mcL LAB HEMETOLOGY METHOD 10/18/2024 7:17 PM T [facility] Blood Venous blood specimen / Unknown 10/18/2024 10/18/2024 6:59 PM EDT us Yuri Saunders MD LAB BLOOD ORDERABLES Final Resul t [facility] [address] [place] [address], [place] [phone] * Prostate specific antigen screen (10/18/2024 12:00 AM EDT) PSA 1.36 0.00 - 4.00 ng/mL LAB CHEMISTRY METHOD 10/18/2024 7:57 PM EDT [facility] Blood Venous blood specimen / Unknown 10/18/2024 10/18/2024 6:59 PM EDT Narrative [facility] - 10/18/2024 7:57 PM EDT The Siemens Advia TabletKioskaur Chemiluminescent Immunoassay is used. Results obtained with different assay methods or kits cannot be used interchangeably. Results cannot be interpreted as absolute evidence of the presence or absence of malignant disease. us Yuri Saunders MD LAB BLOOD ORDERABLES Final Resul t [facility] [address] [place] [address], [place] [phone] documented in this encounter Visit Diagnoses Diagnosis Other fdc (current) drug therapy documented in this encounter Care Teams Surgical Garment Assembly Supervisor Relationship Specialty Start Date End Date Yuri Saunders MD [address] [place] [address] Dr [address] [place], [place] PCP - General Internal Medicine 08/06/24 documented as of this encounter
--- OUTSIDE RECORDS SUMMARY | 2025-02-07 14:33 | XMS_ITS | Clinical Summary ---
Author Organization [address] [facility] Address [address] [place] [address] Phone Care Team Providers Care Supervisor Border Department Name Role Phone Yuri Saunders MD Primary Care Provider [phone] Encounters Date Type Department Care Team Description 11/18/2024 Lab Requisition [facility] [address] [place] [address] Yuri Saunders MD Type 2 diabetes mellitus with foot ulcer (CODE) ([facility] V24, [facility] V28); Disorder of urea cycle metabolism, unspecified ([facility] V24) 11/07/2024 Lab Requisition [facility] [address] [place] [address] Yuri Saunders MD Hematuria, unspecified from Last 3 Months Social History Tobacco [...] 08/24/2011 Zoster Vaccines (1 of 2) 08/24/2011 Depression Screening 05/08/2024 COVID-19 Vaccine ( - 2023-2 5 season) 2025 Influenza Vaccine (#1) 2025 RSV Immunization Adult Patie nts (1 - 1-dose 75+ series) 2036 HIB [...] age to complete this topic Meningococcal B Vaccine Aged Out No l onger eligible based on patient's age to complete this topic RSV Immunization Patients Un rebecca 20 months Aged Out No longer eligible b ased on patient's age to complete this topic Varicella Vaccines Aged Out No longer eligible based on patient's age to complete this topic Procedures Procedure Name Priority Date/Time Associated Diagnosis Comments AMMONIA Routine 11/18/2024 12:00 AM EDT Type 2 diabetes mellitus with foot ulcer (CODE) ([facility] V24, [facility] V28) Disorder of urea cycle metabolism, unspecified ([facility] V24) HEMOGLOBIN A1C Routine 11/18/2024 12:00 AM EDT Type 2 diabetes mellitus with foot ulcer (CODE) ([facility] V24, [facility] V28) Disorder of urea cycle metabolism, unspecified ([facility] V24) COMPREHENSIVE METABOLIC PANEL Routine 11/18/2024 12:00 AM EDT Type 2 diabetes mellitus with foot ulcer (CODE) ([facility] V24, [facility] V28) Disorder of urea cycle metabolism, unspecified ([facility] V24) URINALYSIS WITH REFLEX MICROSCOPIC Routine 11/07/2024 11:20 AM EDT Hematuria, unspecified RUEDA URINE CULTURE TUBE Routine 11/07/2024 11:20 AM EDT Hematuria, unspecified URINALYSIS WITH REFLEX MICROSCOPIC Routine 11/07/2024 11:20 AM EDT Hematuria, unspecified from Last 3 Months Results * Hemoglobin A1c (11/18/2024 12:00 AM EDT) Hemoglobin A1C 6.2 <6.5 % LAB CHEMISTRY METHOD 11/19/2024 1:24 PM EDT [facility] Mean Bld Glu Estim. 131 mg/dL LAB CHEMISTRY METHOD 11/19/2024 1:24 PM EDT [facility] Blood Venous blood specimen / Unknown 11/18/2024 11/18/2024 6:35 PM EDT us Yuri Saunders MD LAB BLOOD ORDERABLES Final Resul t Performing Organization Address [facility]/ZIP Co de Phone Number [facility] [address] [place] [address], [place] [phone] * (ABNORMAL) Ammonia (11/18/2024 12:00 AM EDT) Ammonia 46(H) 11 - 35 mcmol/L LAB CHEMISTRY METHOD 11/18/2024 6:59 PM EDT [facility] Blood Venous blood specimen / Unknown 11/18/2024 11/18/2024 6:35 PM EDT us Yuri Saunders MD LAB BLOOD ORDERABLES Final Resul t Performing Organization Address [facility] de Phone Number [facility] [address] [place] [address], [place] [phone] * (ABNORMAL) Comprehensive metabolic panel (11/18/2024 12:00 AM EDT) Sodium 139 133 - 145 mmol/L LAB CHEMISTRY METHOD 11/18/2024 8:41 PM EDT [facility] Potassium 4.8 3.5 - 5.5 mmol/L LAB CHEMISTRY METHOD 11/18/2024 8:41 PM EDT [facility] Chloride 104 96 - 110 mmol/L LAB CHEMISTRY METHOD 11/18/2024 8:41 PM EDT [facility] CO2 31 21 - 32 mmol/L LAB CHEMISTRY METHOD 11/18/2024 8:41 PM [facility] Anion Gap 4 3 - 11 LAB CHEMISTRY METHOD 11/18/2024 8:41 PM [facility] Glucose 72 70 - 100 mg/dL LAB CHEMISTRY METHOD 11/18/2024 8:41 PM [facility] BUN 12 5 - 25 mg/dL LAB CHEMISTRY METHOD 11/18/2024 8:41 PM [facility] Creatinine 0.50(L) 0.70 - 1.30 mg/dL LAB CHEMISTRY METHOD 11/18/2024 8:41 PM [facility] eGFR 115 >=60 mL/min/1. 73m2 LAB CHEMISTRY METHOD 11/18/2024 8:41 PM [facility] Comment:Calculation based on the Chronic Kidney Disease Epidemiology Collaboration (CKD-EPI) equation refit without adjustment for race. BUN/Creatinine Ratio 24.0 LAB CHEMISTRY METHOD 11/18/2024 8:41 PM [facility] Calcium 8.6 8.5 - 10.5 mg/dL LAB CHEMISTRY METHOD 11/18/2024 8:41 PM [facility] AST (SGOT) 29 10 - 42 unit/L LAB CHEMISTRY METHOD 11/18/2024 8:41 PM [facility] ALT (SGPT) 37 10 - 60 unit/L LAB CHEMISTRY METHOD 11/18/2024 8:41 PM [facility] Alkaline Phosphatase 182(H) 42 - 121 unit/L LAB CHEMISTRY METHOD 11/18/2024 8:41 PM [facility] Total Protein 7.1 6.0 - 8.0 g/dL LAB CHEMISTRY METHOD 11/18/2024 8:41 PM [facility] Albumin 3.0(L) 3.2 - 5.0 g/dL LAB CHEMISTRY METHOD 11/18/2024 8:41 PM [facility] Total Bilirubin 0.3 0.0 - 1.4 mg/dL LAB CHEMISTRY METHOD 11/18/2024 8:41 PM EDT [facility] Blood Venous blood specimen / Unknown 11/18/2024 11/18/2024 6:35 PM EDT us Yuri Saunders MD LAB BLOOD ORDERABLES Final Resul t [facility] [address] [place] [address], [place] [phone] * (ABNORMAL) Urinalysis with reflex microscopic (11/07/2024 11:20 AM EDT) Specific [place] Urine 1.014 1.003 - 1.030 LAB URINALYSIS - AUTOMATED METHOD 11/07[facility]2024 1:[facility] pH, Urine 8.5(A) 5.0 - 8.0 pH LAB URINALYSIS - AUTOMATED METHOD 11/07/2024 1:50 PM [facility] Leukocytes, Urine Trace(A) Negative LAB URINALYSIS - AUTOMATED METHOD 11/07/2024 1:50 PM [facility] Nitrite, Urine Negative Negative LAB URINALYSIS - AUTOMATED METHOD 11/07/2024 1:50 PM [facility] Protein, Urine 100(A) <=Trace mg/dL LAB URINALYSIS - AUTOMATED METHOD 11/07/2024 1:50 [facility] Glucose, Urine Negative Negative mg/dL LAB URINALYSIS - AUTOMATED METHOD 11/07/2024 1:50 [facility] Ketones, Urine Negative Negative mg/dL LAB URINALYSIS - AUTOMATED METHOD 11/07/2024 1:50 PM [facility] Urobilinogen , Urine 1.0 0.2 - 1.0 mg/dL LAB URINALYSIS - AUTOMATED METHOD 11/07/2024 1:50 PM [facility] Bilirubin, Urine Negative Negative LAB URINALYSIS - AUTOMATED METHOD 11/07/2024 1:50 PM EDT [facility] Blood, Urine Small(A) Negative LAB URINALYSIS - AUTOMATED METHOD 11/07/2024 1:50 PM EDT [facility] RBC, Urine 1,634.6(H) 0 - 4 /HPF LAB URINALYSIS - AUTOMATED METHOD 11/07/2024 1:50 PM EDT [facility] WBC, Urine 114.6(H) 0 - 4 /HPF LAB URINALYSIS - AUTOMATED METHOD 11/07/2024 1:50 PM EDT [facility] Squamous Epithelial, Urine 9 0 - 60 /LPF LAB URINALYSIS - AUTOMATED METHOD 11/07/2024 1:50 PM EDT [facility] Bacteria, Urine Negative Negative /HPF LAB URINALYSIS - AUTOMATED METHOD 11/07/2024 1:50 PM EDT [facility] Hyaline Casts, Urine 8.3(H) 0 - 3 /LPF LAB URINALYSIS - AUTOMATED METHOD 11/07/2024 1:50 PM EDT [facility] Urine Urine specimen obtained by clean catch procedure / Unknown 11/07/2024 11:20 AM EDT 11/07/2024 12:50 PM EDT us Yuri Saunders MD LAB URINE ORDERABLES Final Resul t [facility] [address] [place] [address], * Rueda urine culture tube (11/07/2024 11:20 AM EDT) Extra Tube Hold for add-ons. 11/07/2024 2:02 PM EDT [facility] Comment:Auto resulted. Urine Urine specimen obtained by clean catch procedure / Unknown 11/07/2024 11:20 AM EDT 11/07/2024 12:50 PM EDT us Yuri Saunders MD LAB URINE ORDERABLES Final Resul t [facility] ([facility]) [facility] [address] [place] [address], [place] [phone] from Last 3 Months Care Teams Supervisor Border Department Relationship Specialty Start Date End Date Yuri Saunders MD [address] [place] [address] Dr [address] [place], [place] PCP - General Internal Medicine 08/06/24
--- OUTSIDE RECORDS SUMMARY | 2025-02-07 14:33 | XMS_ITS | Encounter Summary ---
Author Organization [facility] Address [address] [place] [address] Care Team Providers Care Casket Assembler Name Role Phone Yuri Saunders MD Primary Care Provider [phone] Encounter Details Date Type Department Care Team (Late st Contact Info) Description 11/18/2024 Lab Requisition [facility] [address] [facility] [place] [address] Yuri Saunders MD [address] [place] [address] [address] [place], [place] Type 2 diabetes mellitus with foot ulcer (CODE) (CMS/HCC V24, CMS/HCC V28); Disorder of urea cycle metabolism, unspecified (CMS/HCC V24) Social History Tobacco Use Types Packs/Day Years [...] Procedure Name Priority Date/Time Associated Diagnosis Comments HEMOGLOBIN A1C Routine 11/18/2024 12:00 AM EDT Type 2 diabetes mellitus with foot ulcer (CODE) (CMS/HCC V24, CMS/HCC V28) Disorder of urea cycle metabolism, unspecified (CMS/HCC V24) AMMONIA Routine 11/18/2024 12:00 AM EDT Type 2 diabetes mellitus with foot ulcer (CODE) (CMS/HCC V24, CMS/HCC V28) Disorder of urea cycle metabolism, unspecified (CMS/HCC V24) COMPREHENSIVE METABOLIC PANEL Routine 11/18/2024 12:00 AM EDT Type 2 diabetes mellitus with foot ulcer (CODE) (CMS/HCC V24, CMS/HCC V28) Disorder of urea cycle metabolism, unspecified (CMS/HCC V24) documented in this encounter Results * (ABNORMAL) Ammonia (11/18/2024 12:00 AM EDT) Ammonia 46(H) 11 - 35 mcmol/L LAB CHEMISTRY METHOD 11/18/2024 6:59 PM EDT [facility] Blood Venous blood specimen / Unknown 11/18/2024 11/18/2024 6:35 PM EDT us Yuri Saunders MD LAB BLOOD ORDERABLES Final Resul t Performing Organization Address [facility]/ZIP Co de Phone Number [facility] [address] [place] [address], [place] [phone] * Hemoglobin A1c (11/18/2024 12:00 AM EDT) Pathologist [facility] Hemoglobin A1C 6.2 <6.5 % LAB CHEMISTRY METHOD 11/19/2024 1:24 PM EDT [facility] Mean Bld Glu Estim. 131 mg/dL LAB CHEMISTRY METHOD 11/19/2024 1:24 PM EDT [facility] Blood Venous blood specimen / Unknown 11/18/2024 11/18/2024 6:35 PM EDT us Yuri Saunders MD LAB BLOOD ORDERABLES Final Resul t Performing Organization Address City/[facility]/ZIP Co de Phone Number [facility] [address] [place] [address], [place] [phone] * (ABNORMAL) Comprehensive metabolic panel (11/18/2024 12:00 AM EDT) Sodium 139 133 - 145 mmol/L LAB CHEMISTRY METHOD 11/18/2024 8:41 PM EDT [facility] Potassium 4.8 3.5 - 5.5 mmol/L LAB CHEMISTRY METHOD 11/18/2024 8:41 PM EDT [facility] Chloride 104 96 - 110 mmol/L LAB CHEMISTRY METHOD 11/18/2024 8:41 PM [facility] CO2 31 21 - 32 mmol/L LAB CHEMISTRY METHOD 11/18/2024 8:41 PM [facility] Anion Gap 4 3 - 11 LAB CHEMISTRY METHOD 11/18/2024 8:41 PM [facility] Glucose 72 70 - 100 mg/dL LAB CHEMISTRY METHOD 11/18/2024 8:41 PM [facility] BUN 12 5 - 25 mg/dL LAB CHEMISTRY METHOD 11/18/2024 8:41 PM [facility] Creatinine 0.50(L) 0.70 - 1.30 mg/dL LAB CHEMISTRY METHOD 11/18/2024 8:41 PM [facility] eGFR 115 >=60 mL/min/1. 73m2 LAB CHEMISTRY METHOD 11/18/2024 8:41 PM [facility] Comment:Calculation based on the Chronic Kidney Disease Epidemiology Collaboration (CKD-EPI) equation refit without adjustment for race. BUN/Creatinine Ratio 24.0 LAB CHEMISTRY METHOD 11/18/2024 8:41 PM [facility] Calcium 8.6 8.5 - 10.5 mg/dL LAB CHEMISTRY METHOD 11/18/2024 8:41 PM [facility] AST (SGOT) 29 10 - 42 unit/L LAB CHEMISTRY METHOD 11/18/2024 8:41 PM [facility] ALT (SGPT) 37 10 - 60 unit/L LAB CHEMISTRY METHOD 11/18/2024 8:41 PM [facility] Alkaline Phosphatase 182(H) 42 - 121 unit/L LAB CHEMISTRY METHOD 11/18/2024 8:41 PM [facility] Total Protein 7.1 6.0 - 8.0 g/dL LAB CHEMISTRY METHOD 11/18/2024 8:41 PM EDT [facility] Albumin 3.0(L) 3.2 - 5.0 g/dL LAB CHEMISTRY METHOD 11/18/2024 8:41 PM EDT [facility] Total Bilirubin 0.3 0.0 - 1.4 mg/dL LAB CHEMISTRY METHOD 11/18/2024 8:41 PM EDT [facility] Blood Venous blood specimen / Unknown 11/18/2024 11/18/2024 6:35 PM EDT us Yuri Saunders MD LAB BLOOD ORDERABLES Final Resul t [facility] [address] [place] [address], documented in this encounter Visit Diagnoses Diagnosis Type 2 diabetes mellitus with foot ulcer (CODE) (CMS/HCC V24, CMS/[facility] V28) Disorder of urea cycle metabolism, unspecified ([facility] V24) documented in this encounter Care Teams Casket Assembler Relationship Specialty Start Date End Date Yuri Saunders MD [address] [place], [place] PCP - General Internal Medicine 08/06/24 documented as of this encounter
--- OUTSIDE RECORDS SUMMARY | 2025-02-07 14:33 | XMS_ITS | Encounter Summary ---
Author Organization [employer] Address [address] [place] [address] Care Team Providers Care Sample Hand Name Role Phone Yuri Saunders MD Primary Care Provider [phone] Encounter Details Date Type Department Care Team (Late st Contact Info) Description 08/19/2024 Lab Requisition [facility] - Main Lab [address] [facility] [place] [address] Yuri Saunders MD [address] [place] [address] Dr [address] [place], [place] Type 2 diabetes mellitus with foot ulcer (CODE) (CMS/HCC V24, CMS/HCC V28); Essential (primary) hypertension; Hyperlipidemia, unspecified Social History Tobacco Use Types Packs/Day [...] Procedure Name Priority Date/Time Associated Diagnosis Comments SST - GOLD Routine 08/19/2024 7:05 AM EDT Type 2 diabetes mellitus with foot ulcer (CODE) (CMS/HCC V24, CMS/HCC V28) Essential (primary) hypertension Hyperlipidemia, unspecified LIPID PANEL WITH REFLEX TO DIRECT LDL Routine 08/19/2024 7:05 AM EDT Type 2 diabetes mellitus with foot ulcer (CODE) (CMS/HCC V24, CMS/HCC V28) Essential (primary) hypertension Hyperlipidemia, unspecified CBC WITH AUTO DIFFERENTIAL Routine 08/19/2024 7:05 AM EDT Type 2 diabetes mellitus with foot ulcer (CODE) (CMS/HCC V24, CMS/HCC V28) Essential (primary) hypertension Hyperlipidemia, unspecified LAVENDER - EDTA Routine 08/19/2024 7:05 AM EDT Type 2 diabetes mellitus with foot ulcer (CODE) (CMS/HCC V24, CMS/HCC V28) Essential (primary) hypertension Hyperlipidemia, unspecified RED - PLAIN Routine 08/19/2024 7:05 AM EDT Type 2 diabetes mellitus with foot ulcer (CODE) (CMS/HCC V24, CMS/HCC V28) Essential (primary) hypertension Hyperlipidemia, unspecified CBC AND DIFFERENTIAL Routine 08/19/2024 7:05 AM EDT Type 2 diabetes mellitus with foot ulcer (CODE) (CMS/HCC V24, CMS/HCC V28) Essential (primary) hypertension Hyperlipidemia, unspecified THYROID STIMULATING HORMONE Routine 08/19/2024 7:05 AM EDT Type 2 diabetes mellitus with foot ulcer (CODE) (CMS/HCC V24, CMS/HCC V28) Essential (primary) hypertension Hyperlipidemia, unspecified THYROXINE FREE Routine 08/19/2024 7:05 AM EDT Type 2 diabetes mellitus with foot ulcer (CODE) (CMS/HCC V24, CMS/HCC V28) Essential (primary) hypertension Hyperlipidemia, unspecified MAGNESIUM Routine 08/19/2024 7:05 AM EDT Type 2 diabetes mellitus with foot ulcer (CODE) (CMS/HCC V24, CMS/HCC V28) Essential (primary) hypertension Hyperlipidemia, unspecified HEMOGLOBIN A1C Routine 08/19/2024 7:05 AM EDT Type 2 diabetes mellitus with foot ulcer (CODE) (CMS/HCC V24, CMS/HCC V28) Essential (primary) hypertension Hyperlipidemia, unspecified CORTISOL Routine 08/19/2024 7:05 AM EDT Type 2 diabetes mellitus with foot ulcer (CODE) (CMS/HCC V24, CMS/HCC V28) Essential (primary) hypertension Hyperlipidemia, unspecified AMMONIA Routine 08/19/2024 7:05 AM EDT Type 2 diabetes mellitus with foot ulcer (CODE) (CMS/HCC V24, CMS/HCC V28) Essential (primary) hypertension Hyperlipidemia, unspecified COMPREHENSIVE METABOLIC PANEL Routine 08/19/2024 7:05 AM EDT Type 2 diabetes mellitus with foot ulcer (CODE) ([facility] V24, [facility] V28) Essential (primary) hypertension Hyperlipidemia, unspecified documented in this encounter Results * Lavender tube (08/19/2024 7:05 AM EDT) Extra Tube Hold for add-ons. 08/19/2024 10:02 AM EDT [facility] Comment:Auto resulted. Blood Venous blood specimen / Unknown 08/19/2024 7:05 AM EDT 08/19/2024 8:02 AM EDT us Yuri Saunders MD LAB BLOOD ORDERABLES Final Resul t [facility] [address] [place] [address], [place] [phone] * SST tube (08/19/2024 7:05 AM EDT) Extra Tube Hold for add-ons. 08/19/2024 10:02 AM EDT [facility] Comment:Auto resulted. Blood Venous blood specimen / Unknown 08/19/2024 7:05 AM EDT 08/19/2024 8:02 AM EDT us Yuri Saunders MD LAB BLOOD ORDERABLES Final Resul t [facility] [address] [place] [address], [place] [phone] * Red tube (08/19/2024 7:05 AM EDT) Extra Tube Hold for add-ons. 08/19/2024 10:02 AM EDT [facility] Comment:Auto resulted. Blood Venous blood specimen / Unknown 08/19/2024 7:05 AM EDT 08/19/2024 8:02 AM EDT us Yuri Saunders MD LAB BLOOD ORDERABLES Final Resul t [facility] [address] [place] [address], * (ABNORMAL) CBC auto differential (08/19/2024 7:05 AM EDT) WBC 6.5 4.8 - 10.8 K/mcL LAB HEMETOLOGY METHOD 08/19/2024 8:18 AM [facility] RBC 3.90(L) 4.50 - 5.50 M/mcL LAB HEMETOLOGY METHOD 08/19/2024 8:18 AM [facility] Hemoglobin 10.2(L) 13.5 - 17.5 g/dL LAB HEMETOLOGY METHOD 08/19/2024 8:18 AM [facility] Hematocrit 32.7(L) 42.0 - 54.0 % LAB HEMETOLOGY METHOD 08/19/2024 8:18 AM [facility] MCV 83.4 79.0 - 98.0 FL LAB HEMETOLOGY METHOD 08/19/2024 8:18 AM [facility] MCH 26.0(L) 27.0 - 32.0 pcg LAB HEMETOLOGY METHOD 08/19/2024 8:18 AM [facility] MCHC 31.2(L) 32.0 - 37.0 g/dL LAB HEMETOLOGY METHOD 08/19/2024 8:18 AM [facility] RDW 16.5(H) 11.0 - 15.0 % LAB HEMETOLOGY METHOD 08/19/2024 8:18 AM [facility] Platelets 335 130 - 400 K/mcL LAB HEMETOLOGY METHOD 08/19/2024 8:18 AM [facility] MPV 9.5 7.0 - 11.0 FL LAB HEMETOLOGY METHOD 08/19/2024 8:18 AM [facility] NRBC 0.0 <1.0 % LAB HEMETOLOGY METHOD 08/19/2024 8:18 AM [facility] NRBC Absolute 0.00 <0.10 K/mcL LAB HEMETOLOGY METHOD 08/19/2024 8:18 AM [facility] Neutrophils Relative 62.3 % LAB HEMETOLOGY METHOD 08/19/2024 8:18 AM [facility] Lymphocytes Relative 22.0 % LAB HEMETOLOGY METHOD 08/19/2024 8:18 AM [facility] Monocytes Relative 12.3 % LAB HEMETOLOGY METHOD 08/19/2024 8:18 AM [facility] Eosinophils Relative 2.6 % LAB HEMETOLOGY METHOD 08/19/2024 8:18 AM [facility] Basophils Relative 0.5 % LAB HEMETOLOGY METHOD 08/19/2024 8:18 AM [facility] Immature Granulocytes Relative 0.3 % LAB HEMETOLOGY METHOD 08/19/2024 8:18 AM [facility] Neutrophils Absolute 4.05 1.50 - 7.00 K/mcL LAB HEMETOLOGY METHOD 08/19/2024 8:18 AM [facility] Lymphocytes Absolute 1.43 1.00 - 5.00 K/mcL LAB HEMETOLOGY METHOD 08/19/2024 8:18 AM [facility] Monocytes Absolute 0.80 0.20 - 1.00 K/mcL LAB HEMETOLOGY METHOD 08/19/2024 8:18 AM [facility] Eosinophils Absolute 0.17 0.00 - 0.50 K/[facility] LAB HEMETOLOGY METHOD 08/19/2024 8:18 AM EDT [facility] Basophils Absolute 0.03 0.00 - 0.20 K/[facility] LAB HEMETOLOGY METHOD 08/19/2024 8:18 AM EDT [facility] Immature Granulocytes Absolute 0.02 0.00 - 0.03 K/[facility] HEMETOLOGY METHOD 08/19/2024 8:18 AM EDT [facility] Blood Venous blood specimen / Unknown 08/19/2024 7:05 AM EDT 08/19/2024 8:02 AM EDT us Yuri Saunders MD LAB BLOOD ORDERABLES Final Resul t Performing Organization Address [facility]/ZIP Co de Phone Number [facility] [address] [place] [address], * Thyroid stimulating hormone (08/19/2024 7:05 AM EDT) TSH 1.26 0.40 - 4.00 mcIU/mL LAB CHEMISTRY METHOD 08/19/2024 10:16 AM EDT [facility] Blood Venous blood specimen / Unknown 08/19/2024 7:05 AM EDT 08/19/2024 8:02 AM EDT us Yuri Saunders MD LAB BLOOD ORDERABLES Final Resul t [facility] [address] [place] [address], * (ABNORMAL) Magnesium (08/19/2024 7:05 AM EDT) Magnesium 1.8(L) 1.9 - 2.6 mg/dL LAB CHEMISTRY METHOD 08/19/2024 8:33 AM EDT [facility] Blood Venous blood specimen / Unknown 08/19/2024 7:05 AM EDT 08/19/2024 8:02 AM EDT us Yuri Saunders MD LAB BLOOD ORDERABLES Final Resul t Performing Organization Address [facility] de Phone Number [facility] [address] [place] [address], [place] [phone] * Hemoglobin A1c (08/19/2024 7:05 AM EDT) Hemoglobin A1C 6.3 <6.5 % LAB CHEMISTRY METHOD 08/19/2024 1:56 PM EDT [facility] Mean Bld Glu Estim. 134 mg/dL LAB CHEMISTRY METHOD 08/19/2024 1:56 PM EDT [facility] Blood Venous blood specimen / Unknown 08/19/2024 7:05 AM EDT 08/19/2024 8:02 AM EDT us Yuri Saunders MD LAB BLOOD ORDERABLES Final Resul t Performing Organization Address [facility] de Phone Number [facility] [address] [place] [address], [place] [phone] * Thyroxine free (08/19/2024 7:05 AM EDT) Free T4 1.16 0.70 - 1.80 ng/dL LAB CHEMISTRY METHOD 08/19/2024 10:16 AM EDT [facility] Blood Venous blood specimen / Unknown 08/19/2024 7:05 AM EDT 08/19/2024 8:02 AM EDT us Yuri Saunders MD LAB BLOOD ORDERABLES Final Resul t Performing Organization Address [facility] Co de Phone Number [facility] [address] [place] [address], [place] [phone] * Cortisol (08/19/2024 7:05 AM EDT) Cortisol 9.2 mcg/dL LAB CHEMISTRY METHOD 08/19/2024 10:16 AM EDT [facility] Blood Venous blood specimen / Unknown 08/19/2024 7:05 AM EDT 08/19/2024 8:02 AM EDT Narrative [facility] - 08/19/2024 10:16 AM EDT CORTISOL REFERENCE RANGE 8 AM SPEC: 5.0-23.0 mcg/dL 4 PM SPEC: 3.0-16.0 mcg/dL 8 PM SPEC: <5.0 mcg/dL us Yuri Saunders MD LAB BLOOD ORDERABLES Final Resul t Performing Organization Address [facility] de Phone Number [facility] [address] [place] [address], [place] [phone] * Ammonia (08/19/2024 7:05 AM EDT) Ammonia 35 11 - 35 mcmol/L LAB CHEMISTRY METHOD 08/19/2024 8:27 AM EDT [facility] Blood Venous blood specimen / Unknown 08/19/2024 7:05 AM EDT 08/19/2024 8:02 AM EDT us Yuri Saunders MD LAB BLOOD ORDERABLES Final Resul t Performing Organization Address [facility]/ZIP Co de Phone Number [facility] [address] [place] [address], [place] [phone] * Lipid panel with reflex to direct LDL (08/19/2024 7:05 AM EDT) Cholesterol 131 0 - 200 mg/dL LAB CHEMISTRY METHOD 08/19/2024 8:50 AM EDT [facility] Triglycerides 35 0 - 150 mg/dL LAB CHEMISTRY METHOD 08/19/2024 8:50 AM EDT [facility] HDL 57 >=40 mg/dL LAB CHEMISTRY METHOD 08/19/2024 8:50 AM T [facility] LDL Calculated 67 0 - 100 mg/dL LAB CHEMISTRY METHOD 08/19/2024 8:50 AM [facility] VLDL Cholesterol Chris 7 mg/dL LAB CHEMISTRY METHOD 08/19/2024 8:50 AM T [facility] Non HDL Chol. (LDL+VLDL) 74 <145 mg/dL LAB CHEMISTRY METHOD 08/19/2024 8:50 AM [facility] Chol/HDL Ratio 2.3 0.0 - 4.4 LAB CHEMISTRY METHOD 08/19/2024 8:50 AM [facility] Blood Venous blood specimen / Unknown 08/19/2024 7:05 AM EDT 08/19/2024 8:02 AM EDT us Yuri Saunders MD LAB BLOOD ORDERABLES Final Resul t [facility] [address] [place] [address], [place] [phone] * (ABNORMAL) Comprehensive metabolic panel (08/19/2024 7:05 AM EDT) Sodium 139 133 - 145 mmol/L LAB CHEMISTRY METHOD 08/19/2024 8:33 AM [facility] Potassium 4.5 3.5 - 5.5 mmol/L LAB CHEMISTRY METHOD 08/19/2024 8:33 AM [facility] Chloride 105 96 - 110 mmol/L LAB CHEMISTRY METHOD 08/19/2024 8:33 AM [facility] CO2 31 21 - 32 mmol/L LAB CHEMISTRY METHOD 08/19/2024 8:33 AM [facility] Anion Gap 3 3 - 11 LAB CHEMISTRY METHOD 08/19/2024 8:33 AM [facility] Glucose 83 70 - 100 mg/dL LAB CHEMISTRY METHOD 08/19/2024 8:33 AM [facility] BUN 12 5 - 25 mg/dL LAB CHEMISTRY METHOD 08/19/2024 8:33 AM [facility] Creatinine 0.49(L) 0.70 - 1.30 mg/dL LAB CHEMISTRY METHOD 08/19/2024 8:33 AM [facility] eGFR 116 >=60 mL/min/1. 73m2 LAB CHEMISTRY METHOD 08/19/2024 8:33 AM [facility] Comment:Calculation based on the Chronic Kidney Disease Epidemiology Collaboration (CKD-EPI) equation refit without adjustment for race. BUN/Creatinine Ratio 24.5 LAB CHEMISTRY METHOD 08/19/2024 8:33 AM [facility] Calcium 9.0 8.5 - 10.5 mg/dL LAB CHEMISTRY METHOD 08/19/2024 8:33 AM [facility] AST (SGOT) 26 10 - 42 unit/L LAB CHEMISTRY METHOD 08/19/2024 8:33 AM [facility] ALT (SGPT) 35 10 - 60 unit/L LAB CHEMISTRY METHOD 08/19/2024 8:33 AM [facility] Alkaline Phosphatase 164(H) 42 - 121 unit/L LAB CHEMISTRY METHOD 08/19/2024 8:33 AM [facility] Total Protein 6.8 6.0 - 8.0 g/dL LAB CHEMISTRY METHOD 08/19/2024 8:33 AM [facility] Albumin 2.7(L) 3.2 - 5.0 g/dL LAB CHEMISTRY METHOD 08/19/2024 8:33 AM [facility] Total Bilirubin 0.2 0.0 - 1.4 mg/dL LAB CHEMISTRY METHOD 08/19/2024 8:33 AM [facility] Blood Venous blood specimen / Unknown 08/19/2024 7:05 AM EDT 08/19/2024 8:02 AM EDT Yuri Saunders MD LAB BLOOD ORDERABLES Final Resul t [facility] [address] [place] [address], documented in this encounter Visit Diagnoses Diagnosis Type 2 diabetes mellitus with foot ulcer (CODE) (CMS/HCC V24, [facility] V28) Essential (primary) hypertension Unspecified essential hypertension Hyperlipidemia, unspecified documented in this encounter Care Teams Sample Hand Relationship Specialty Start Date End Date Yuri Saunders MD [address] [place] [address] Dr [address] [place], [place] PCP - General Internal Medicine 08/06/24 documented as of this encounter
--- OUTSIDE RECORDS SUMMARY | 2025-02-07 14:33 | XMS_ITS | Encounter Summary ---
Author Organization [employer] Address [address] [place] [address] Care Team Providers Care Instrument Designer Name Role Phone Yuri Saunders MD Primary Care Provider [phone] Encounter Details Date Type Department Care Team (Late st Contact Info) Description 11/07/2024 Lab Requisition [facility] - Main Lab [address] [facility] [place] [address] Yuri Saunders MD [address] [place] [address] Dr [address] [place], [place] Hematuria, unspecified Social History Tobacco Use [...] reflex microscopic (11/07/2024 11:20 AM EDT) Specific [place] Urine 1.014 1.003 - 1.030 LAB URINALYSIS - AUTOMATED METHOD 11/07/2024 1:50 PM EDT [facility] pH, Urine 8.5(A) 5.0 - 8.0 pH LAB URINALYSIS - AUTOMATED METHOD 11/07/2024 1:50 PM [facility] Leukocytes, Urine Trace(A) Negative LAB URINALYSIS - AUTOMATED METHOD 11/07/2024 1:50 PM [facility] Nitrite, Urine Negative Negative LAB URINALYSIS - AUTOMATED METHOD 11/07/2024 1:50 PM [facility] Protein, Urine 100(A) <=Trace mg/dL LAB URINALYSIS - AUTOMATED METHOD 11/07/2024 1:50 PM [facility] Glucose, Urine Negative Negative mg/dL LAB URINALYSIS - AUTOMATED METHOD 11/07/2024 1:50 PM [facility] Ketones, Urine Negative Negative mg/dL LAB URINALYSIS - AUTOMATED METHOD 11/07/2024 1:50 PM [facility] Urobilinogen , Urine 1.0 0.2 - 1.0 mg/dL LAB URINALYSIS - AUTOMATED METHOD 11/07/2024 1:50 PM [facility] Bilirubin, Urine Negative Negative LAB URINALYSIS - AUTOMATED METHOD 11/07/2024 1:50 PM [facility] Blood, Urine Small(A) Negative LAB URINALYSIS - AUTOMATED METHOD 11/07/2024 1:50 PM [facility] RBC, Urine 1,634.6(H) 0 - 4 /HPF LAB URINALYSIS - AUTOMATED METHOD 11/07/2024 1:50 PM [facility] WBC, Urine 114.6(H) 0 - 4 /HPF LAB URINALYSIS - AUTOMATED METHOD 11/07/2024 1:50 PM [facility] Squamous Epithelial, Urine 9 0 - 60 /LPF LAB URINALYSIS - AUTOMATED METHOD 11/07/2024 1:50 PM [facility] Bacteria, Urine Negative Negative /HPF LAB URINALYSIS - AUTOMATED METHOD 11/07/2024 1:50 PM [facility] Hyaline Casts, Urine 8.3(H) 0 - 3 /LPF LAB URINALYSIS - AUTOMATED METHOD 11/07/2024 1:50 PM EDT [facility] Urine Urine specimen obtained by clean catch procedure / Unknown 11/07/2024 11:20 AM EDT 11/07/2024 12:50 PM EDT us Yuri Saunders MD LAB URINE ORDERABLES Final Resul t Performing Organization Address City/[facility]/ZIP Co de Phone Number [facility] [address] [place] [address], [place] [phone] * Rueda urine culture tube (11/07/2024 11:20 AM EDT) Extra Tube Hold for add-ons. 11/07/2024 2:02 PM EDT [facility] Comment:Auto resulted. Urine Urine specimen obtained by clean catch procedure / Unknown 11/07/2024 11:20 AM EDT 11/07/2024 12:50 PM EDT us Yuri Saunders MD LAB URINE ORDERABLES Final Resul t Performing Organization Address [facility] Co de Phone Number [facility] [address] [place] [address], [place] [phone] documented in this encounter Visit Diagnoses Diagnosis Hematuria, unspecified documented in this encounter Care Teams Instrument Designer Relationship Specialty Start Date End Date Yuri Saunders MD [address] [place] [address] Dr [address] [place] Wolf PCP - General Internal Medicine 08/06/24 documented as of this encounter
--- OUTSIDE RECORDS SUMMARY | 2025-02-07 14:33 | XMS_ITS | Encounter Summary ---
Author Organization [employer] Address [address] [place] [address] Care Team Providers Care Lead Assistant Manager Name Role Phone Yuri Saunders MD Primary Care Provider [phone] Encounter Details Date Type Department Care Team (Late st Contact Info) Description 07/03/2024 Lab Requisition [facility] - Main Lab [address] [place] [address] Yuri Saunders MD [address] [place] [address] Dr [address] [place], [place] Schizophrenia, unspecified (CMS/HCC V24, CMS/HCC V28) Social History Tobacco Use Types Packs/Day Years [...] PM EST) WBC 7.2 4.8 - 10.8 K/[facility] HEMETOLOGY METHOD 07/03/2024 7:28 PM EST [facility] RBC 4.40(L) 4.50 - 5.50 M/[facility] LAB HEMETOLOGY METHOD 07/03/2024 7:28 PM EST [facility] Hemoglobin 11.2(L) 13.5 - 17.5 g/dL LAB HEMETOLOGY METHOD 07/03/2024 7:28 PM [facility] Hematocrit 36.0(L) 42.0 - 54.0 % LAB HEMETOLOGY METHOD 07/03/2024 7:28 PM [facility] MCV 82.6 79.0 - 98.0 FL LAB HEMETOLOGY METHOD 07/03/2024 7:28 PM [facility] MCH 25.7(L) 27.0 - 32.0 pcg LAB HEMETOLOGY METHOD 07/03/2024 7:28 PM [facility] MCHC 31.1(L) 32.0 - 37.0 g/dL LAB HEMETOLOGY METHOD 07/03/2024 7:28 PM [facility] RDW 17.2(H) 11.0 - 15.0 % LAB HEMETOLOGY METHOD 07/03/2024 7:28 PM [facility] Platelets 363 130 - 400 K/mcL LAB HEMETOLOGY METHOD 07/03/2024 7:28 PM [facility] MPV 8.9 7.0 - 11.0 FL LAB HEMETOLOGY METHOD 07/03/2024 7:28 PM [facility] NRBC 0.0 <1.0 % LAB HEMETOLOGY METHOD 07/03/2024 7:28 PM [facility] NRBC Absolute 0.00 <0.10 K/mcL LAB HEMETOLOGY METHOD 07/03/2024 7:28 PM [facility] Neutrophils Relative 67.5 % LAB HEMETOLOGY METHOD 07/03/2024 7:28 PM [facility] Lymphocytes Relative 21.3 % LAB HEMETOLOGY METHOD 07/03/2024 7:28 PM [facility] Monocytes Relative 9.4 % LAB HEMETOLOGY METHOD 07/03/2024 7:28 PM EST [facility] Eosinophils Relative 1.1 % LAB HEMETOLOGY METHOD 07/03/2024 7:28 PM [facility] Basophils Relative 0.4 % LAB HEMETOLOGY METHOD 07/03/2024 7:28 PM [facility] Immature Granulocytes Relative 0.3 % LAB HEMETOLOGY METHOD 07/03/2024 7:28 PM [facility] Neutrophils Absolute 4.87 1.50 - 7.00 K/mcL LAB HEMETOLOGY METHOD 07/03/2024 7:28 PM [facility] Lymphocytes Absolute 1.54 1.00 - 5.00 K/mcL LAB HEMETOLOGY METHOD 07/03/2024 7:28 PM [facility] Monocytes Absolute 0.68 0.20 - 1.00 K/mcL LAB HEMETOLOGY METHOD 07/03/2024 7:28 PM [facility] Eosinophils Absolute 0.08 0.00 - 0.50 K/mcL LAB HEMETOLOGY METHOD 07/03/2024 7:28 PM [facility] Basophils Absolute 0.03 0.00 - 0.20 K/mcL LAB HEMETOLOGY METHOD 07/03/2024 7:28 PM [facility] Immature Granulocytes Absolute 0.02 0.00 - 0.03 K/mcL LAB HEMETOLOGY METHOD 07/03/2024 7:28 PM [facility] Blood Venous blood specimen / Unknown 07/03/2024 6:35 PM EST 07/03/2024 7:06 PM EST Yuri Saunders MD LAB BLOOD ORDERABLES Final Resul t [facility] [address] [place] [address], documented in this encounter Visit Diagnoses Diagnosis Schizophrenia, unspecified (CMS/HCC V24, CMS/HCC V28) documented in this encounter Care Teams Lead Assistant Manager Relationship Specialty Start Date End Date Yuri Saunders MD [address] [place] [address] Dr [address] MELODIE Wolf PCP - General Internal Medicine 08/06/24 documented as of this encounter
--- OUTSIDE RECORDS SUMMARY | 2025-02-07 14:33 | XMS_ITS | Encounter Summary ---
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 Social History Tobacco Use [...] Associated Diagnosis Comments SST - GOLD Routine 08/02/2024 6:15 AM EDT Other terminal superintendent (current) drug therapy HALOPERIDOL LEVEL Routine 08/02/2024 6:1 5 AM EDT Other terminal superintendent (current) drug therapy OXCARBAZEPINE LEVEL Routine 08/02/2024 6 :15 AM EDT Other terminal superintendent (current) drug therapy COMPLETE BLOOD COUNT Routine 08/02/2024 6:15 AM EDT Other terminal superintendent (current) drug therapy AMMONIA Routine 08/02/2024 6:15 AM EDT Other terminal superintendent (current) drug therapy COMPREHENSIVE METABOLIC PANEL Routine 08/02/2024 6:15 AM EDT Other usp (current) drug therapy documented in this encounter Results * SST tube (08/02/2024 6:15 AM EDT) Pathologist [facility] Extra Tube Hold for add-ons. 08/02/2024 8:01 AM [facility] Comment:Auto resulted. Blood Venous blood specimen / Unknown 08/02/2024 6:15 AM EDT 08/02/2024 6:47 AM EDT Yuri Saunders MD LAB BLOOD ORDERABLES Final Resul t [facility] [address] [place] [address], * (ABNORMAL) Complete blood count (08/02/2024 6:15 AM EDT) Pathologist [facility] WBC 6.2 4.8 - 10.8 K/mcL LAB HEMETOLOGY METHOD 08/02/2024 7:04 AM [facility] RBC 3.90(L) 4.50 - 5.50 M/mcL LAB HEMETOLOGY METHOD 08/02/2024 7:04 AM [facility] Hemoglobin 10.1(L) 13.5 - 17.5 g/dL LAB HEMETOLOGY METHOD 08/02/2024 7:04 AM [facility] Hematocrit 32.5(L) 42.0 - 54.0 % LAB HEMETOLOGY METHOD 08/02/2024 7:04 AM [facility] MCV 82.9 79.0 - 98.0 FL LAB HEMETOLOGY METHOD 08/02/2024 7:04 AM [facility] MCH 25.8(L) 27.0 - 32.0 pcg LAB HEMETOLOGY METHOD 08/02/2024 7:04 AM [facility] MCHC 31.1(L) 32.0 - 37.0 g/dL LAB HEMETOLOGY METHOD 08/02/2024 7:04 AM EDT [facility] RDW 16.9(H) 11.0 - 15.0 % LAB HEMETOLOGY METHOD 08/02/2024 7:04 AM EDT [facility] Platelets 277 130 - 400 K/mcL LAB HEMETOLOGY METHOD 08/02/2024 7:04 AM EDT [facility] MPV 9.0 7.0 - 11.0 FL LAB HEMETOLOGY METHOD 08/02/2024 7:04 AM EDT [facility] NRBC 0.0 <1.0 % LAB HEMETOLOGY METHOD 08/02/2024 7:04 AM EDT [facility] NRBC Absolute 0.00 <0.10 K/mcL LAB HEMETOLOGY METHOD 08/02/2024 7:04 AM EDT [facility] Blood Venous blood specimen / Unknown 08/02/2024 6:15 AM EDT 08/02/2024 6:47 AM EDT Yuri Saunders MD LAB BLOOD ORDERABLES Final Resul t [facility] [address] [place] [address], * (ABNORMAL) Oxcarbazepine level (08/02/2024 6:15 AM EDT) Oxcarbazepine 5.2(L) 10 - 35 ug/mL 08/05/2024 12:30 PM EDT [facility] Comment: If applicable, any drug confirmation testing reported here was developed and the performance characteristics determined by [facility]. This confirmation testing has not been cleared or approved by the FDA. The laboratory is regulated under CLIA as qualified to perform high-complexity testing. This test is used for patient testing purposes. It should not be regarded as investigational or for research. Test performed at [facility], [address] , [place] [address] Alanna Escalante MD, PhD - Senior Technical Manager Blood Venous blood specimen / Unknown 08/02/2024 6:15 AM EDT 08/02/2024 6:47 AM EDT us Yuri Saunders MD LAB BLOOD ORDERABLES Final Resul t Performing Organization Address [facility]/ZIP Co de Phone Number [facility] [address] [place] [address] * (ABNORMAL) Haloperidol level (08/02/2024 6:15 AM EDT) Haloperidol 16(H) 5 - 15 ng/mL 08/14/2024 4:21 PM EDT [facility] Comment: This test was developed and its analytical performance characteristics have been determined by [facility]. It has not been cleared or approved by the FDA. This assay has been validated pursuant to the CLIA regulations and is used for clinical purposes. TEST PERFORMED AT: [facility] [address] [id number] GOLDIE DAS MD Blood Venous blood specimen / Unknown 08/02/2024 6:15 AM EDT 08/02/2024 6:47 AM EDT us Yuri Saunders MD LAB BLOOD ORDERABLES Final Resul t Performing Organization Address [facility] de Phone Number [facility] [address] [place] [address] * (ABNORMAL) Ammonia (08/02/2024 6:15 AM EDT) Ammonia 50(H) 11 - 35 mcmol/L LAB CHEMISTRY METHOD 08/02/2024 7:19 AM EDT [facility] Blood Venous blood specimen / Unknown 08/02/2024 6:15 AM EDT 08/02/2024 6:47 AM EDT us Yuri Saunders MD LAB BLOOD ORDERABLES Final Resul t Performing Organization Address City/[facility]/ZIP Co de Phone Number [facility] [address] [place] [address], * (ABNORMAL) Comprehensive metabolic panel (08/02/2024 6:15 AM EDT) Sodium 137 133 - 145 mmol/L LAB CHEMISTRY METHOD 08/02/2024 8:26 AM [facility] Potassium 4.4 3.5 - 5.5 mmol/L LAB CHEMISTRY METHOD 08/02/2024 8:26 AM [facility] Comment:Hemolysis present Chloride 104 96 - 110 mmol/L LAB CHEMISTRY METHOD 08/02/2024 8:26 AM [facility] CO2 29 21 - 32 mmol/L LAB CHEMISTRY METHOD 08/02/2024 8:26 AM [facility] Anion Gap 4 3 - 11 LAB CHEMISTRY METHOD 08/02/2024 8:26 AM [facility] Glucose 78 70 - 100 mg/dL LAB CHEMISTRY METHOD 08/02/2024 8:26 AM [facility] BUN 17 5 - 25 mg/dL LAB CHEMISTRY METHOD 08/02/2024 8:26 AM [facility] Creatinine 0.46(L) 0.70 - 1.30 mg/dL LAB CHEMISTRY METHOD 08/02/2024 8:26 AM [facility] eGFR 118 >=60 mL/min/1. 73m2 LAB CHEMISTRY METHOD 08/02/2024 8:26 AM [facility] Comment:Calculation based on the Chronic Kidney Disease Epidemiology Collaboration (CKD-EPI) equation refit without adjustment for race. BUN/Creatinine Ratio 37.0 LAB CHEMISTRY METHOD 08/02/2024 8:26 AM [facility] Calcium 8.6 8.5 - 10.5 mg/dL LAB CHEMISTRY METHOD 08/02/2024 8:26 AM [facility] AST (SGOT) 26 10 - 42 unit/L LAB CHEMISTRY METHOD 08/02/2024 8:26 AM T [facility] Comment:Hemolysis present ALT (SGPT) 27 10 - 60 unit/L LAB CHEMISTRY METHOD 08/02/2024 8:26 AM T [facility] Alkaline Phosphatase 171(H) 42 - 121 unit/L LAB CHEMISTRY METHOD 08/02/2024 8:26 AM T [facility] Total Protein 6.8 6.0 - 8.0 g/dL LAB CHEMISTRY METHOD 08/02/2024 8:26 AM T [facility] Albumin 2.8(L) 3.2 - 5.0 g/dL LAB CHEMISTRY METHOD 08/02/2024 8:26 AM [facility] Total Bilirubin 0.3 0.0 - 1.4 mg/dL LAB CHEMISTRY METHOD 08/02/2024 8:26 AM [facility] Blood Venous blood specimen / Unknown 08/02/2024 6:15 AM EDT 08/02/2024 6:47 AM EDT us Yuri Saunders MD LAB BLOOD ORDERABLES Final Resul t [facility] [address] [place] [address], documented in this encounter Visit Diagnoses Diagnosis 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
--- OUTSIDE RECORDS SUMMARY | 2025-02-07 14:33 | XMS_ITS | Encounter Summary ---
Author Organization [facility] Address [address] [place] [address] Care Team Providers Care Epic [facility] Specialists Name Role Phone Yuri Saunders MD Primary Care Provider [phone] Encounter Details Date Type Department Care Team (Late st Contact Info) Description 08/06/2024 Lab Requisition [facility] - Main Lab [address] [facility] [place] [address] Yuri Saunders MD [address] [place] [address] Dr [address] [place], [place] Urinary tract infection, site not specified Social History Tobacco Use Types Packs/Day Years [...] Associated Diagnosis Comments URINALYSIS WITH REFLEX MICROSCOPIC AND CULTURE Routine 08/05/2024 10:30 PM EDT Urinary tract infection, site not specified RUEDA URINE CULTURE TUBE Routine 08/05/2024 10:30 PM EDT Urinary tract infection, site not specified YELLOW URINE NO ADDITIVE Routine 08/05/2024 10:30 PM EDT Urinary tract infection, site not specified URINALYSIS WITH REFLEX MICROSCOPIC AND CULTURE Routine 08/05/2024 10:30 PM EDT Urinary tract infection, site not specified documented in this encounter Results * Yellow urine no additive (08/05/2024 10:30 PM EDT) Extra Tube Hold for add-ons. 08/06/2024 2:01 AM EDT [facility] Comment:Auto resulted. Urine Urine specimen obtained by clean catch procedure / Unknown 08/05/2024 10:30 PM EDT 08/06/2024 12:27 AM EDT us Yuri Saunders MD LAB URINE ORDERABLES Final Resul t Performing Organization Address [facility] de Phone Number [facility] [address] [place] [address], [place] [phone] * Rueda urine culture tube (08/05/2024 10:30 PM EDT) Extra Tube Hold for add-ons. 08/06/2024 2:01 AM EDT [facility] Comment:Auto resulted. Urine Urine specimen obtained by clean catch procedure / Unknown 08/05/2024 10:30 PM EDT 08/06/2024 12:27 AM EDT us Yuri Saunders MD LAB URINE ORDERABLES Final Resul t Performing Organization Address [facility] de Phone Number [facility] [address] [place] [address], [place] [phone] * Urinalysis with reflex microscopic and culture (08/05/2024 10:30 PM EDT) Pathologist [facility] Specific [place] Urine 1.020 1.003 - 1.030 LAB URINALYSIS - AUTOMATED METHOD 08/06/2024 12:33 AM EDT [facility] pH, Urine 6.5 5.0 - 8.0 pH LAB URINALYSIS - AUTOMATED METHOD 08/06/2024 12:33 AM EDT [facility] Leukocytes, Urine Negative Negative LAB URINALYSIS - AUTOMATED METHOD 08/06/2024 12:33 AM EDT [facility] Nitrite, Urine Negative Negative LAB URINALYSIS - AUTOMATED METHOD 08/06/2024 12:33 AM EDT [facility] Protein, Urine Negative <=Trace mg/dL LAB URINALYSIS - AUTOMATED METHOD 08/06/2024 12:33 AM EDT [facility] Glucose, Urine Negative Negative mg/dL LAB URINALYSIS - AUTOMATED METHOD 08/06/2024 12:33 AM [facility] Ketones, Urine Negative Negative mg/dL LAB URINALYSIS - AUTOMATED METHOD 08/06/2024 12:33 AM T [facility] Urobilinogen, Urine 1.0 0.2 - 1.0 mg/dL LAB URINALYSIS - AUTOMATED METHOD 08/06/2024 12:33 AM T [facility] Bilirubin, Urine Negative Negative LAB URINALYSIS - AUTOMATED METHOD 08/06/2024 12:33 AM [facility] Blood, Urine Negative Negative LAB URINALYSIS - AUTOMATED METHOD 08/06/2024 12:33 AM [facility] Urine Urine specimen obtained by clean catch procedure / Unknown 08/05/2024 10:30 PM EDT 08/06/2024 12:27 AM EDT us Yuri Saunders MD LAB URINE ORDERABLES Final Resul t [facility] [address] [place] [address], documented in this encounter Visit Diagnoses Diagnosis Urinary tract infection, site not specified documented in this encounter Care Teams Epic [facility] Specialists Relationship Specialty Start Date End Date Yuri Saunders MD [address] [place] [address] [address] [place] PCP - General Internal Medicine 08/06/24 documented as of this encounter
--- NOTE | 2025-02-07 14:37 | EMG_ITS ---
Chief complaint: Hand weakness Multiple past medical histories including, as listed on medical records brought in: Movement disorder, alcohol dependence, substance dependence, neuropathy, atrial fibrillation on Eliquis, schizophrenia, metabolic encephalopathy, diabetes. Reason for referral: Evaluate for neuropathy Referred by: Rojelio RIVERA Procedure done: Bilateral upper extremities NCS/EMG Precautions and/or limitations: Patient on Eliquis - paraspinals deferred. Poor following of directions. The limb temperature was monitored continuously and remained between 32-36 degrees C during the performance of the NCS. Ulnar motor NCS was performed with moderate elbow flexion between 70-90 degrees, with across-elbow distance of 10 cm. Nerve Conduction Studies Anti Sensory Summary Table ?Stim Site NR Onset (ms) Norm Onset (ms) Peak (ms) Norm Peak (ms) O-P Amp (?V) Norm O-P Amp Site1 Site2 Delta-0 (ms) Dist (cm) Gilberto (m/s) Norm Gilberto (m/s) Left Median Anti Sensory (2nd Digit) Wrist ? 2.8 3.8 <3.6 8.5 >10 Wrist 2nd Digit 2.8 14.0 50 Right Median Anti Sensory (2nd Digit) Wrist ? 2.9 3.5 <3.6 13.9 >10 Wrist 2nd Digit 2.9 14.0 48 Right Radial Anti Sensory (Thumb) Forearm ? 1.6 2.1 <3.1 10.4 Forearm Thumb 1.6 0.0 Left Ulnar Anti Sensory (5th Digit) Wrist NR <3.7 >15.0 Wrist 5th Digit 14.0 Right Ulnar Anti Sensory (5th Digit) Wrist NR <3.7 >15.0 Wrist 5th Digit 14.0 Motor Summary Table ?Stim Site NR Onset (ms) Norm Onset (ms) O-P Amp (mV) Norm O-P Amp iAmp (mV) Amp (1st) (%) Site1 Site2 Delta-0 (ms) Dist (cm) Gilberto (m/s) Norm Gilberto (m/s) Left Median Motor (Abd Poll Brev) Wrist ? 4.3 <3.9 6.3 >4.5 6.5 100.0 Elbow Wrist 5.4 25.0 46 >45 Elbow ? 9.7 5.6 5.6 88.9 Right Median Motor (Abd Poll Brev) Wrist ? 3.4 <3.9 8.1 >4.5 9.0 100.0 Elbow Wrist 6.1 26.0 43 >45 Elbow ? 9.5 7.1 8.0 87.7 Left Ulnar Motor (Abd Dig Minimi) Wrist ? 3.4 <3.0 7.7 >5 9.4 100.0 B Elbow Wrist 5.1 24.0 47 >45 B Elbow ? 8.5 6.0 7.4 77.9 A Elbow B Elbow 2.4 10.0 42 >45 A Elbow ? 10.9 5.8 7.2 75.3 Right Ulnar Motor (Abd Dig Minimi) Wrist ? 4.4 <3.0 2.5 >5 2.7 100.0 B Elbow Wrist 7.3 26.0 36 >45 B Elbow ? 11.7 1.9 2.2 76.0 A Elbow B Elbow 2.0 10.0 50 >45 A Elbow ? 13.7 2.3 2.4 92.0 EMG ?Side Muscle Nerve Root Ins Act Fibs Psw Amp Dur Poly Recrt Int Pat Comment Right 1stDorInt Ulnar C8-T1 Incr 1+ 1+ Nml Nml 0 Nml Complete Right FlexCarpiUln Ulnar C8,T1 Incr 1+ 1+ Nml Nml 0 Nml Complete Right Biceps Musculocut C5-6 Nml Nml Nml Incr Incr 0 Nml Complete Right Triceps Radial C6-7-8 Nml Nml Nml Nml Nml 0 Nml Complete Right Deltoid Axillary C5-6 Nml Nml Nml Nml Nml 0 Nml Complete Left 1stDorInt Ulnar C8-T1 Incr 1+ 1+ Nml Nml 0 Nml Complete Left FlexCarpiUln Ulnar C8,T1 Nml Nml Nml Nml Nml 0 Nml Complete Left Biceps Musculocut C5-6 Nml Nml Nml Nml Nml 0 Nml Complete Left Triceps Radial C6-7-8 Nml Nml Nml Nml Nml 0 Nml Complete Left Deltoid Axillary C5-6 Nml Nml Nml Nml Nml 0 Nml Complete FINDINGS: Right median motor nerve showed normal distal latency, normal amplitude and slow conduction velocity. Right ulnar motor nerve showed prolonged distal latency, small amplitude with temporal dispersion and slow conduction velocity distally. Left median motor nerve showed prolonged distal latency, normal amplitude and normal conduction velocity. Left ulnar motor nerve showed prolonged distal latency, normal amplitude and slow conduction velocity across the elbow. Right ulnar sensory showed absent response. Left median sensory nerve showed small amplitude and prolonged peak latency. Left ulnar sensory nerve showed absent response. All other nerves tested were within normal. Concentric needle EMG was performed in selected muscles of the bilateral upper extremities. Study revealed signs of electric abnormalities as shown in the table above. Right FCU and FDI showed increased insertional activity, PSWs and fibrillations. Right biceps showed increased duration and amplitude. Left FDI showed increased insertional activity, PSWs and fibrillations. IMPRESSION: 1. This is an abnormal study. 2. There is electrodiagnostic evidence for bilateral ulnar neuropathy at the elbow. 3. There is electrodiagnostic evidence for left moderate-severe median neuropathy at the wrist, consistent with Carpal Tunnel Syndrome. 4. There is suggestion of a right C5-6 chronic radiculopathy. CLINICAL COMMENT: Recommend further workup to rule out: 1. Rule out cervical spinal stenosis. 2. Rule out polyneuropathy. However doing lower extremity EMG would be difficult. Thank you for your kind referral. Mindy Sánchez MD, ISIS Board Certified, [place] Board [employer] and Rehabilitation (ABPMR) Board Certified, [place] Board of Electrodiagnostic Medicine (ABEM) CODIN [phone] MTDD
== END 2025-02-07 14:29 | disposition home or self-care (01) ==
LOC: HO.NEURO 14:28
PROVIDERS: PCP Hospitalist
DX: R20.0 Anesthesia of skin (principal); R20.2 Paresthesia of skin
CPT/HCPCS: 95886; 95911

== ENCOUNTER → 2025-02-07 14:37 | Outpatient (BNV) | payer MEDICAID, SELFPAY | PROVIDERS: PCP Hospitalist; Visit Provider Physical Medicine & Rehabilitation | DX: G56.23 Lesion of ulnar nerve, bilateral upper limbs (principal); G56.02 Carpal tunnel syndrome, left upper limb | CPT/HCPCS: 95886; 95911 ==

== ENCOUNTER 2025-03-24 15:02 | Outpatient (AMB) | payer MEDICAID, SELFPAY ==
[2025-03-24 15:06] VITALS: BMI 28.7
--- NOTE | 2025-03-24 15:06 | MHC.OFFVIS ---
Vital Signs 03/24/25 15:06 Height 5 ft 10 in Weight 200 lb BMI 28.7 Intake Visit Reasons: Est Patient- EMG Review Intake Note: Kayode is a 64 year old right hand dominant male who presents today with a BULLDOZER PRESS OPERATOR for and EMG Review and Follow Up of his Bilateral Hand Numbness & Tingling. Patient was last seen on 12/29/24. At that time his symptoms were constant, daily, worse at night. Today patient reports symptoms remain the same. Patient believes his hands are no longer numbed but stiff. Patient resides at [facility]. Per currently on Eliquis. IMPRESSION 02/07/25: 1. This is an abnormal study. 2. There is electrodiagnostic evidence for bilateral ulnar neuropathy at the elbow. 3. There is electrodiagnostic evidence for left moderate-severe median neuropathy at the wrist, consistent with Carpal Tunnel Syndrome. 4. There is suggestion of a right C5-6 chronic radiculopathy. Allergies penicillin V Allergy (Unknown, Verified 12/09/24 14:53) Unknown doxycycline Allergy (Verified 12/09/24 14:53) Unknown HPI HPI Est Patient- EMG Review: Details: Kayode is a 64 year old right hand dominant male who presents today with a BULLDOZER PRESS OPERATOR for and EMG Review and Follow Up of his Bilateral Hand Numbness & Tingling. Patient was last seen on 12/29/24. At that time his symptoms were constant, daily, worse at night. Today patient reports symptoms remain the same. Patient believes his hands are no longer numbed but stiff. Patient resides at [facility]. Per currently on Eliqu. IMPRESSION 02/07/25: 1. This is an abnormal study. 2. There is electrodiagnostic evidence for bilateral ulnar neuropathy at the elbow. 3. There is electrodiagnostic evidence for left moderate-severe median neuropathy at the wrist, consistent with Carpal Tunnel Syndrome. 4. There is suggestion of a right C5-6 chronic radiculopathy. [facility] Social History Patient Tobacco Use Status: Tobacco use Unknown Review of Systems Const All systems reviewed & are unremarkable except as noted in HPI and below Physical Exam Vital Signs: BMI result Body Mass Index 28.7 Extrem Other: Neuro: Normal sensation of the tips of all digits of bilateral hands in the office today No thenar or intrinsic wasting. Good APB muscle firing and good finger cross. Vascular: Capillary refill brisk. ROM: Patient can make a fist and extend all their digits. Skin: No lacerations or abrasions noted. General: No ecchymosis. No erythema or evidence of infection. Assessment & Plan Assessment & Plan (1) Cubital tunnel syndrome, bilateral: Code(s): G56.23 - Lesion of ulnar nerve, bilateral upper limbs Category: Medical (2) Left carpal tunnel syndrome: Code(s): G56.02 - Carpal tunnel syndrome, left upper limb Category: Medical Plan 1. Bilateral cubital tunnel syndrome 2. Left carpal tunnel syndrome Patient and his BULLDOZER PRESS OPERATOR are educated about this condition in the typical treatment course At this time, however, I feel that prior to getting the patient registered for surgery, due to his extremely significant past medical history, he should meet with Dr. Fritz the hand surgeon prior to any registration for surgery Patient is educated that if he is able to be register for surgery, he will require several clearances, including primary care and Cardiology Patient states he would like to move forward with surgery if at all possible Patient will follow-up with Dr. Fritz, sooner with any acute concerns Coding Level of Care Code Est Pt Level 3 (54304) Diagnoses Cubital tunnel syndrome, bilateral G56.23 Left carpal tunnel syndrome G56.02
--- OUTSIDE RECORDS SUMMARY | 2025-03-25 05:38 | XMS_ITS | Encounter Summary ---
Author Organization [employer] Address [address] [place] [address] Care Team Providers Care Salesperson Corsets Name Role Phone Yuri Saunders MD Primary Care Provider [phone] Encounter Details Date Type Department Care Team (Late st Contact Info) Description 11/18/2024 Lab Requisition [facility] - Main Lab [address] [facility] [place] [address] Yuri Saunders MD [address] [place] [address] Dr [address] [place], [place] Type 2 diabetes mellitus with foot [...] LAB CHEMISTRY METHOD 11/18/2024 6:59 PM EDT [facility] Blood Venous blood specimen / Unknown 11/18/2024 11/18/2024 6:35 PM EDT us Yuri Saunders MD LAB BLOOD ORDERABLES Final Resul t Performing Organization Address [facility]/ZIP Co de Phone Number [facility] [address] [place] [address], [place] [phone] * Hemoglobin A1c (11/18/2024 12:00 AM EDT) Pathologist [facility] Hemoglobin A1C 6.2 <6.5 % LAB CHEMISTRY METHOD 11/19/2024 1:24 PM EDT [facility] Mean Bld Glu Estim. 131 mg/dL LAB CHEMISTRY METHOD 11/19/2024 1:24 PM EDT [facility] Blood Venous blood specimen / Unknown 11/18/2024 11/18/2024 6:35 PM EDT us Yuri Saunders MD LAB BLOOD ORDERABLES Final Resul t Performing Organization Address City/[facility]/ZIP Co de Phone Number [facility] [address] [place] [address], [place] [phone] * (ABNORMAL) Comprehensive metabolic panel (11/18/2024 12:00 AM EDT) Sodium 139 133 - 145 mmol/L LAB CHEMISTRY METHOD 11/18/2024 8:41 PM EDT [facility] Potassium 4.8 3.5 - 5.5 mmol/L LAB CHEMISTRY METHOD 11/18/2024 8:41 PM EDT [facility] Chloride 104 96 - 110 mmol/L LAB CHEMISTRY METHOD 11/18/2024 8:41 PM [facility] CO2 31 21 - 32 mmol/L LAB CHEMISTRY METHOD 11/18/2024 8:41 PM [facility] Anion Gap 4 3 - 11 LAB CHEMISTRY METHOD 11/18/2024 8:41 PM [facility] Glucose 72 70 - 100 mg/dL LAB CHEMISTRY METHOD 11/18/2024 8:41 PM [facility] BUN 12 5 - 25 mg/dL LAB CHEMISTRY METHOD 11/18/2024 8:41 PM [facility] Creatinine 0.50(L) 0.70 - 1.30 mg/dL LAB CHEMISTRY METHOD 11/18/2024 8:41 PM [facility] eGFR 115 >=60 mL/min/1. 73m2 LAB CHEMISTRY METHOD 11/18/2024 8:41 PM [facility] Comment:Calculation based on the Chronic Kidney Disease Epidemiology Collaboration (CKD-EPI) equation refit without adjustment for race. BUN/Creatinine Ratio 24.0 LAB CHEMISTRY METHOD 11/18/2024 8:41 PM [facility] Calcium 8.6 8.5 - 10.5 mg/dL LAB CHEMISTRY METHOD 11/18/2024 8:41 PM [facility] AST (SGOT) 29 10 - 42 unit/L LAB CHEMISTRY METHOD 11/18/2024 8:41 PM [facility] ALT (SGPT) 37 10 - 60 unit/L LAB CHEMISTRY METHOD 11/18/2024 8:41 PM [facility] Alkaline Phosphatase 182(H) 42 - 121 unit/L LAB CHEMISTRY METHOD 11/18/2024 8:41 PM [facility] Total Protein 7.1 6.0 - 8.0 g/dL LAB CHEMISTRY METHOD 11/18/2024 8:41 PM EDT [facility] Albumin 3.0(L) 3.2 - 5.0 g/dL LAB CHEMISTRY METHOD 11/18/2024 8:41 PM EDT [facility] Total Bilirubin 0.3 0.0 - 1.4 mg/dL LAB CHEMISTRY METHOD 11/18/2024 8:41 PM EDT [facility] Blood Venous blood specimen / Unknown 11/18/2024 11/18/2024 6:35 PM EDT us Yuri Saunders MD LAB BLOOD ORDERABLES Final Resul t [facility] [address] [place] [address], documented in this encounter Visit Diagnoses Diagnosis Type 2 diabetes mellitus with foot ulcer (CODE) (CMS/HCC V24, CMS/[facility] V28) Disorder of urea cycle metabolism, unspecified ([facility] V24) documented in this encounter Care Teams Salesperson Corsets Relationship Specialty Start Date End Date Yuri Saunders MD [address] [place], [place] PCP - General Internal Medicine 08/06/24 documented as of this encounter
--- OUTSIDE RECORDS SUMMARY | 2025-03-25 05:38 | XMS_ITS | Encounter Summary ---
Author Organization [employer] [facility] Address [address] [place] [address] Care Team Providers Care Commercial Pest Control Technician Name Role Phone Yuri Saunders MD Primary Care Provider [phone] Encounter Details Date Type Department Care Team (Late st Contact Info) Description 11/07/2024 Lab Requisition [facility] - Main Lab 299 [facility] [email or web address] [address] Yuri Saunders MD [address] [place] [address] Dr [address] [place], [place] Hematuria, unspecified Social History Tobacco Use [...] reflex microscopic (11/07/2024 11:20 AM EDT) Specific [place] Urine 1.014 1.003 - 1.030 LAB URINALYSIS - AUTOMATED METHOD 11/07/2024 1:50 PM EDT [facility] pH, Urine 8.5(A) 5.0 - 8.0 pH LAB URINALYSIS - AUTOMATED METHOD 11/07/2024 1:50 PM [facility] Leukocytes, Urine Trace(A) Negative LAB URINALYSIS - AUTOMATED METHOD 11/07/2024 1:50 PM [facility] Nitrite, Urine Negative Negative LAB URINALYSIS - AUTOMATED METHOD 11/07/2024 1:50 PM [facility] Protein, Urine 100(A) <=Trace mg/dL LAB URINALYSIS - AUTOMATED METHOD 11/07/2024 1:50 PM [facility] Glucose, Urine Negative Negative mg/dL LAB URINALYSIS - AUTOMATED METHOD 11/07/2024 1:50 PM [facility] Ketones, Urine Negative Negative mg/dL LAB URINALYSIS - AUTOMATED METHOD 11/07/2024 1:50 PM [facility] Urobilinogen , Urine 1.0 0.2 - 1.0 mg/dL LAB URINALYSIS - AUTOMATED METHOD 11/07/2024 1:50 PM [facility] Bilirubin, Urine Negative Negative LAB URINALYSIS - AUTOMATED METHOD 11/07/2024 1:50 PM [facility] Blood, Urine Small(A) Negative LAB URINALYSIS - AUTOMATED METHOD 11/07/2024 1:50 PM [facility] RBC, Urine 1,634.6(H) 0 - 4 /HPF LAB URINALYSIS - AUTOMATED METHOD 11/07/2024 1:50 PM [facility] WBC, Urine 114.6(H) 0 - 4 /HPF LAB URINALYSIS - AUTOMATED METHOD 11/07/2024 1:50 PM [facility] Squamous Epithelial, Urine 9 0 - 60 /LPF LAB URINALYSIS - AUTOMATED METHOD 11/07/2024 1:50 PM [facility] Bacteria, Urine Negative Negative /HPF LAB URINALYSIS - AUTOMATED METHOD 11/07/2024 1:50 PM [facility] Hyaline Casts, Urine 8.3(H) 0 - 3 /LPF LAB URINALYSIS - AUTOMATED METHOD 11/07/2024 1:50 PM EDT [facility] Urine Urine specimen obtained by clean catch procedure / Unknown 11/07/2024 11:20 AM EDT 11/07/2024 12:50 PM EDT us Yuri Saunders MD LAB URINE ORDERABLES Final Resul t Performing Organization Address City/[facility]/ZIP Co de Phone Number [facility] [address] [place] [address], [place] [phone] * Rueda urine culture tube (11/07/2024 11:20 AM EDT) Extra Tube Hold for add-ons. 11/07/2024 2:02 PM EDT [facility] Comment:Auto resulted. Urine Urine specimen obtained by clean catch procedure / Unknown 11/07/2024 11:20 AM EDT 11/07/2024 12:50 PM EDT us Yuri Saunders MD LAB URINE ORDERABLES Final Resul t Performing Organization Address [facility] Co de Phone Number [facility] [address] [place] [address], [place] [phone] documented in this encounter Visit Diagnoses Diagnosis Hematuria, unspecified documented in this encounter Care Teams Commercial Pest Control Technician Relationship Specialty Start Date End Date Yuri Saunders MD [address] [place] [address] Dr [address] [place] PCP - General Internal Medicine 08/06/24 documented as of this encounter
--- OUTSIDE RECORDS SUMMARY | 2025-03-25 05:39 | XMS_ITS | Encounter Summary ---
Author Organization [employer] Address [address] [place] [address] Care Team Providers Care Motor Tune Up Specialist Name Role Phone Yuri Saunders MD Primary Care Provider [phone] Encounter Details Date Type Department Care Team (Late st Contact Info) Description 08/19/2024 Lab Requisition [facility] - Main Lab 299 [facility] [place] [address] Yuri Saunders MD [address] [place] [address] Dr [address] [place], [place] Type 2 diabetes mellitus with foot [...] 2 diabetes mellitus with foot ulcer (CODE) ([facility] V24, [facility] V28) Essential (primary) hypertension Hyperlipidemia, unspecified documented in this encounter Results * Lavender tube (08/19/2024 7:05 AM EDT) Extra Tube Hold for add-ons. 08/19/2024 10:02 AM EDT [facility] Comment:Auto resulted. Blood Venous blood specimen / Unknown 08/19/2024 7:05 AM EDT 08/19/2024 8:02 AM EDT us Yuri Saunders MD LAB BLOOD ORDERABLES Final Resul t [facility] [address] [place] [address], [place] [phone] * SST tube (08/19/2024 7:05 AM EDT) Extra Tube Hold for add-ons. 08/19/2024 10:02 AM EDT [facility] Comment:Auto resulted. Blood Venous blood specimen / Unknown 08/19/2024 7:05 AM EDT 08/19/2024 8:02 AM EDT us Yuri Saunders MD LAB BLOOD ORDERABLES Final Resul t [facility] [address] [place] [address], [place] [phone] * Red tube (08/19/2024 7:05 AM EDT) Extra Tube Hold for add-ons. 08/19/2024 10:02 AM EDT [facility] Comment:Auto resulted. Blood Venous blood specimen / Unknown 08/19/2024 7:05 AM EDT 08/19/2024 8:02 AM EDT us Yuri Saunders MD LAB BLOOD ORDERABLES Final Resul t [facility] [address] [place] [address], * (ABNORMAL) CBC auto differential (08/19/2024 7:05 AM EDT) WBC 6.5 4.8 - 10.8 K/mcL LAB HEMETOLOGY METHOD 08/19/2024 8:18 AM [facility] RBC 3.90(L) 4.50 - 5.50 M/mcL LAB HEMETOLOGY METHOD 08/19/2024 8:18 AM [facility] Hemoglobin 10.2(L) 13.5 - 17.5 g/dL LAB HEMETOLOGY METHOD 08/19/2024 8:18 AM [facility] Hematocrit 32.7(L) 42.0 - 54.0 % LAB HEMETOLOGY METHOD 08/19/2024 8:18 AM [facility] MCV 83.4 79.0 - 98.0 FL LAB HEMETOLOGY METHOD 08/19/2024 8:18 AM [facility] MCH 26.0(L) 27.0 - 32.0 pcg LAB HEMETOLOGY METHOD 08/19/2024 8:18 AM [facility] MCHC 31.2(L) 32.0 - 37.0 g/dL LAB HEMETOLOGY METHOD 08/19/2024 8:18 AM [facility] RDW 16.5(H) 11.0 - 15.0 % LAB HEMETOLOGY METHOD 08/19/2024 8:18 AM [facility] Platelets 335 130 - 400 K/mcL LAB HEMETOLOGY METHOD 08/19/2024 8:18 AM [facility] MPV 9.5 7.0 - 11.0 FL LAB HEMETOLOGY METHOD 08/19/2024 8:18 AM [facility] NRBC 0.0 <1.0 % LAB HEMETOLOGY METHOD 08/19/2024 8:18 AM [facility] NRBC Absolute 0.00 <0.10 K/mcL LAB HEMETOLOGY METHOD 08/19/2024 8:18 AM [facility] Neutrophils Relative 62.3 % LAB HEMETOLOGY METHOD 08/19/2024 8:18 AM [facility] Lymphocytes Relative 22.0 % LAB HEMETOLOGY METHOD 08/19/2024 8:18 AM [facility] Monocytes Relative 12.3 % LAB HEMETOLOGY METHOD 08/19/2024 8:18 AM [facility] Eosinophils Relative 2.6 % LAB HEMETOLOGY METHOD 08/19/2024 8:18 AM [facility] Basophils Relative 0.5 % LAB HEMETOLOGY METHOD 08/19/2024 8:18 AM [facility] Immature Granulocytes Relative 0.3 % LAB HEMETOLOGY METHOD 08/19/2024 8:18 AM [facility] Neutrophils Absolute 4.05 1.50 - 7.00 K/mcL LAB HEMETOLOGY METHOD 08/19/2024 8:18 AM [facility] Lymphocytes Absolute 1.43 1.00 - 5.00 K/mcL LAB HEMETOLOGY METHOD 08/19/2024 8:18 AM [facility] Monocytes Absolute 0.80 0.20 - 1.00 K/mcL LAB HEMETOLOGY METHOD 08/19/2024 8:18 AM [facility] Eosinophils Absolute 0.17 0.00 - 0.50 K/[facility] LAB HEMETOLOGY METHOD 08/19/2024 8:18 AM EDT [facility] Basophils Absolute 0.03 0.00 - 0.20 K/[facility] LAB HEMETOLOGY METHOD 08/19/2024 8:18 AM EDT [facility] Immature Granulocytes Absolute 0.02 0.00 - 0.03 K/[facility] LAB HEMETOLOGY METHOD 08/19/2024 8:18 AM EDT [facility] Blood Venous blood specimen / Unknown 08/19/2024 7:05 AM EDT 08/19/2024 8:02 AM EDT us Yuri Saunders MD LAB BLOOD ORDERABLES Final Resul t Performing Organization Address [facility]/ZIP Co de Phone Number [facility] [address] [place] [address], * Thyroid stimulating hormone (08/19/2024 7:05 AM EDT) TSH 1.26 0.40 - 4.00 mcIU/mL LAB CHEMISTRY METHOD 08/19/2024 10:16 AM EDT [facility] Blood Venous blood specimen / Unknown 08/19/2024 7:05 AM EDT 08/19/2024 8:02 AM EDT us Yuri Saunders MD LAB BLOOD ORDERABLES Final Resul t [facility] [address] [place] [address], * (ABNORMAL) Magnesium (08/19/2024 7:05 AM EDT) Magnesium 1.8(L) 1.9 - 2.6 mg/dL LAB CHEMISTRY METHOD 08/19/2024 8:33 AM EDT [facility] Blood Venous blood specimen / Unknown 08/19/2024 7:05 AM EDT 08/19/2024 8:02 AM EDT us Yuri Saunders MD LAB BLOOD ORDERABLES Final Resul t Performing Organization Address [facility] de Phone Number [facility] [address] [place] [address], [place] [phone] * Hemoglobin A1c (08/19/2024 7:05 AM EDT) Hemoglobin A1C 6.3 <6.5 % LAB CHEMISTRY METHOD 08/19/2024 1:56 PM EDT [facility] Mean Bld Glu Estim. 134 mg/dL LAB CHEMISTRY METHOD 08/19/2024 1:56 PM EDT [facility] Blood Venous blood specimen / Unknown 08/19/2024 7:05 AM EDT 08/19/2024 8:02 AM EDT us Yuri Saunders MD LAB BLOOD ORDERABLES Final Resul t Performing Organization Address [facility] de Phone Number [facility] [address] [place] [address], [place] [phone] * Thyroxine free (08/19/2024 7:05 AM EDT) Free T4 1.16 0.70 - 1.80 ng/dL LAB CHEMISTRY METHOD 08/19/2024 10:16 AM EDT [facility] Blood Venous blood specimen / Unknown 08/19/2024 7:05 AM EDT 08/19/2024 8:02 AM EDT us Yuri Saunders MD LAB BLOOD ORDERABLES Final Resul t Performing Organization Address [facility] Co de Phone Number [facility] [address] [place] [address], [place] [phone] * Cortisol (08/19/2024 7:05 AM EDT) Cortisol 9.2 mcg/dL LAB CHEMISTRY METHOD 08/19/2024 10:16 AM EDT [facility] Blood Venous blood specimen / Unknown 08/19/2024 7:05 AM EDT 08/19/2024 8:02 AM EDT Narrative [facility] - 08/19/2024 10:16 AM EDT CORTISOL REFERENCE RANGE 8 AM SPEC: 5.0-23.0 mcg/dL 4 PM SPEC: 3.0-16.0 mcg/dL 8 PM SPEC: <5.0 mcg/dL us Yuri Saunders MD LAB BLOOD ORDERABLES Final Resul t Performing Organization Address [facility] de Phone Number [facility] [address] [place] [address], [place] [phone] * Ammonia (08/19/2024 7:05 AM EDT) Ammonia 35 11 - 35 mcmol/L LAB CHEMISTRY METHOD 08/19/2024 8:27 AM EDT [facility] Blood Venous blood specimen / Unknown 08/19/2024 7:05 AM EDT 08/19/2024 8:02 AM EDT us Yuri Saunders MD LAB BLOOD ORDERABLES Final Resul t Performing Organization Address [facility]/ZIP Co de Phone Number [facility] [address] [place] [address], [place] [phone] * Lipid panel with reflex to direct LDL (08/19/2024 7:05 AM EDT) Cholesterol 131 0 - 200 mg/dL LAB CHEMISTRY METHOD 08/19/2024 8:50 AM EDT [facility] Triglycerides 35 0 - 150 mg/dL LAB CHEMISTRY METHOD 08/19/2024 8:50 AM EDT [facility] HDL 57 >=40 mg/dL LAB CHEMISTRY METHOD 08/19/2024 8:50 AM T [facility] LDL Calculated 67 0 - 100 mg/dL LAB CHEMISTRY METHOD 08/19/2024 8:50 AM [facility] VLDL Cholesterol Chris 7 mg/dL LAB CHEMISTRY METHOD 08/19/2024 8:50 AM T [facility] Non HDL Chol. (LDL+VLDL) 74 <145 mg/dL LAB CHEMISTRY METHOD 08/19/2024 8:50 AM [facility] Chol/HDL Ratio 2.3 0.0 - 4.4 LAB CHEMISTRY METHOD 08/19/2024 8:50 AM [facility] Blood Venous blood specimen / Unknown 08/19/2024 7:05 AM EDT 08/19/2024 8:02 AM EDT us Yuri Saunders MD LAB BLOOD ORDERABLES Final Resul t [facility] [address] [place] [address], [place] [phone] * (ABNORMAL) Comprehensive metabolic panel (08/19/2024 7:05 AM EDT) Sodium 139 133 - 145 mmol/L LAB CHEMISTRY METHOD 08/19/2024 8:33 AM [facility] Potassium 4.5 3.5 - 5.5 mmol/L LAB CHEMISTRY METHOD 08/19/2024 8:33 AM [facility] Chloride 105 96 - 110 mmol/L LAB CHEMISTRY METHOD 08/19/2024 8:33 AM [facility] CO2 31 21 - 32 mmol/L LAB CHEMISTRY METHOD 08/19/2024 8:33 AM [facility] Anion Gap 3 3 - 11 LAB CHEMISTRY METHOD 08/19/2024 8:33 AM [facility] Glucose 83 70 - 100 mg/dL LAB CHEMISTRY METHOD 08/19/2024 8:33 AM [facility] BUN 12 5 - 25 mg/dL LAB CHEMISTRY METHOD 08/19/2024 8:33 AM [facility] Creatinine 0.49(L) 0.70 - 1.30 mg/dL LAB CHEMISTRY METHOD 08/19/2024 8:33 AM [facility] eGFR 116 >=60 mL/min/1. 73m2 LAB CHEMISTRY METHOD 08/19/2024 8:33 AM [facility] Comment:Calculation based on the Chronic Kidney Disease Epidemiology Collaboration (CKD-EPI) equation refit without adjustment for race. BUN/Creatinine Ratio 24.5 LAB CHEMISTRY METHOD 08/19/2024 8:33 AM [facility] Calcium 9.0 8.5 - 10.5 mg/dL LAB CHEMISTRY METHOD 08/19/2024 8:33 AM [facility] AST (SGOT) 26 10 - 42 unit/L LAB CHEMISTRY METHOD 08/19/2024 8:33 AM [facility] ALT (SGPT) 35 10 - 60 unit/L LAB CHEMISTRY METHOD 08/19/2024 8:33 AM [facility] Alkaline Phosphatase 164(H) 42 - 121 unit/L LAB CHEMISTRY METHOD 08/19/2024 8:33 AM [facility] Total Protein 6.8 6.0 - 8.0 g/dL LAB CHEMISTRY METHOD 08/19/2024 8:33 AM [facility] Albumin 2.7(L) 3.2 - 5.0 g/dL LAB CHEMISTRY METHOD 08/19/2024 8:33 AM [facility] Total Bilirubin 0.2 0.0 - 1.4 mg/dL LAB CHEMISTRY METHOD 08/19/2024 8:33 AM [facility] Blood Venous blood specimen / Unknown 08/19/2024 7:05 AM EDT 08/19/2024 8:02 AM EDT Yuri Saunders MD LAB BLOOD ORDERABLES Final Resul t [facility] ([facility] [address] [place] [address], documented in this encounter Visit Diagnoses Diagnosis Type 2 diabetes mellitus with foot ulcer (CODE) (CMS/HCC V24, CMS/[facility] V28) Essential (primary) hypertension Unspecified essential hypertension Hyperlipidemia, unspecified documented in this encounter Care Teams Motor Tune Up Specialist Relationship Specialty Start Date End Date Yuri Saunders MD [address] [place] [address] Dr [address] [place], [place] PCP - General Internal Medicine 08/06/24 documented as of this encounter
--- OUTSIDE RECORDS SUMMARY | 2025-03-25 05:40 | XMS_ITS | Encounter Summary ---
Author Organization [email or web address] [facility] Address [address] [place] [address] Care Team Providers Care Document Review Attorney Name Role Phone Yuri Saunders MD Primary Care Provider [phone] Encounter Details Date Type Department Care Team (Late st Contact Info) Description 02/19/[address] [facility] - Main Lab 299 [facility] [place] [address] Yuri Saunders MD [address] [place] [address] [address] [place], [place] Type 2 diabetes mellitus with foot ulcer (CODE) (CMS/HCC V24, CMS/HCC V28); Disorder of urea cycle metabolism, unspecified (CMS/HCC V24); Hypothyroidism, unspecified; Iron deficiency Social History Tobacco Use Types Packs/Day Years Used Date Smoking Tobacco: Never Assessed Sex and Gender Information Value Date Recorded Sex Assigned at Not on file Legal Sex Male 10:10 AM EST Gender Identity Not on file Sexual Orientation Not on file documented as of this encounter Plan of Treatment Not on file documented as of this encounter Visit Diagnoses Diagnosis Type 2 diabetes mellitus with foot ulcer (CODE) (CMS/HCC V24, CMS/HCC V28) Disorder of urea cycle metabolism, unspecified (CMS/HCC V24) Hypothyroidism, unspecified Iron deficiency Disorders of iron metabolism documented in this encounter Care Teams Document Review Attorney Relationship Specialty Start Date End Date Yuri Saunders MD [address] [place] [address] Dr [address] [place], [place] PCP - General Internal Medicine 08/06/24 documented as of this encounter
--- OUTSIDE RECORDS SUMMARY | 2025-03-25 05:40 | XMS_ITS | Encounter Summary ---
Author Organization [facility] Address [address] [place] [address] Care Team Providers Care Director Of Institutional Giving Name Role Phone Yuri Saunders MD Primary Care Provider [phone] Encounter Details Date Type Department Care Team (Late st Contact Info) Description 10/18/2024 Lab Requisition [facility] - Main Lab [address] [place] [address] Yuri Saunders MD [address] [place] [address] [address] [place], [place] Other usp (current) drug therapy Social History Tobacco Use [...] DIFFERENTIAL Routine 10/18/2024 12:00 AM EDT Other [facility]p (current) drug therapy CBC AND DIFFERENTIAL Routine 10/18/2024 12:00 AM EDT Other terminal block assembler (current) drug therapy documented in this encounter Results * (ABNORMAL) CBC auto differential (10/18/2024 12:00 AM EDT) WBC 6.2 4.8 - 10.8 K/[facility] LAB HEMETOLOGY METHOD 10/18/2024 7:17 PM EDT [facility] RBC 4.20(L) 4.50 - 5.50 M/[facility] LAB HEMETOLOGY METHOD [facility] Hemoglobin 11.0(L) 13.5 - 17.5 g/dL LAB HEMETOLOGY METHOD 10/18/2024 7:17 [facility] Hematocrit 35.8(L) 42.0 - 54.0 % LAB HEMETOLOGY METHOD 10/18/2024 7:17 [facility] MCV 85.6 79.0 - 98.0 FL LAB HEMETOLOGY METHOD 10/18/2024 7:17 [facility] MCH 26.3(L) 27.0 - 32.0 pcg LAB HEMETOLOGY METHOD 10/18/2024 7:17 PM [facility] LAB MCHC 30.7(L) 32.0 - 37.0 g/dL LAB HEMETOLOGY METHOD 10/18/2024 7:17 PM [facility] LAB RDW 16.9(H) 11.0 - 15.0 % LAB HEMETOLOGY METHOD 10/18/2024 7:[facility] Platelets 271 130 - 400 K/mcL LAB HEMETOLOGY METHOD 10/18/2024 7:17 PM [facility] LAB MPV 9.4 7.0 - 11.0 FL LAB HEMETOLOGY METHOD 10/18/2024 7:17 [facility] NRBC 0.0 <1.0 % LAB HEMETOLOGY METHOD 10/18/2024 7:17 PM [facility] LAB NRBC Absolute 0.00 <0.10 K/mcL LAB HEMETOLOGY METHOD 10/18/2024 7:17 [facility] Neutrophils Relative 64.3 % LAB HEMETOLOGY METHOD 10/18/2024 7:17 PM [facility] LAB Lymphocytes Relative 20.0 % LAB HEMETOLOGY METHOD 10/18/2024 7:17 PM EDT [facility] LAB Monocytes Relative 13.6 % LAB HEMETOLOGY METHOD 10/18/2024 7:17 PM EDT [facility] LAB Eosinophils Relative 1.5 % LAB HEMETOLOGY METHOD 10/18/2024 7:[facility] Basophils Relative 0.3 % LAB HEMETOLOGY METHOD 10/18/2024 7:17 PM EDT [facility] LAB Immature Granulocytes Relative 0.3 % LAB HEMETOLOGY METHOD 10/18/2024 7:17 PM EDT [facility] LAB Neutrophils Absolute 3.98 1.50 - 7.00 K/mcL LAB HEMETOLOGY METHOD 10/18/2024 7:17 [facility] Lymphocytes Absolute 1.24 1.00 - 5.00 K/mcL LAB HEMETOLOGY METHOD 10/18/2024 7:17 PM EDT [facility] LAB Monocytes Absolute 0.84 0.20 - 1.00 K/mcL LAB HEMETOLOGY METHOD 10/18/2024 7:17 PM EDT [facility] LAB Eosinophils Absolute 0.09 0.00 - 0.50 K/mcL LAB HEMETOLOGY METHOD 10/18/2024 7:17 PM [facility] LAB Basophils Absolute 0.02 0.00 - 0.20 K/mcL LAB HEMETOLOGY METHOD 10/18/2024 7:17 PM EDT [facility] LAB Immature Granulocytes Absolute 0.02 0.00 - 0.03 K/mcL LAB HEMETOLOGY METHOD 10/18/2024 7:17 PM T [facility] LAB Blood Venous blood specimen / Unknown 10/18/2024 10/18/2024 6:59 PM EDT us Yuri Sanuders MD LAB BLOOD ORDERABLES Final Resul t [facility] LAB [address] [place] [address], [place] [phone] * Prostate specific antigen screen (10/18/2024 12:00 AM EDT) PSA 1.36 0.00 - 4.00 ng/mL LAB CHEMISTRY METHOD 10/18/2024 7:57 PM EDT [facility] LAB Blood Venous blood specimen / Unknown 10/18/2024 10/18/2024 6:59 PM EDT Narrative [facility] LAB - 10/18/2024 7:57 PM EDT The Siemens Advia RFEyeDaur Chemiluminescent Immunoassay is used. Results obtained with different assay methods or kits cannot be used interchangeably. Results cannot be interpreted as absolute evidence of the presence or absence of malignant disease. us Yuri Saunders MD LAB BLOOD ORDERABLES Final Resul t [facility] LAB [address] [place] [address], [place] [phone] documented in this encounter Visit Diagnoses Diagnosis Other [facility] (current) drug therapy documented in this encounter Care Teams Director Of Institutional Giving Relationship Specialty Start Date End Date Yuri Saunders MD [address] [place] [address] Dr [address] [place], [place] PCP - General Internal Medicine 08/06/24 documented as of this encounter
--- OUTSIDE RECORDS SUMMARY | 2025-03-25 05:40 | XMS_ITS | Encounter Summary ---
Author Organization [employer] Address [address] [place] [address] Care Team Providers Care Polytechnic Registrar Name Role Phone Yuri Saunders MD Primary Care Provider [phone] Encounter Details Date Type Department Care Team (Late st Contact Info) Description 02/20/2025 Lab Requisition [facility] - Main Lab [address] [facility] [place] [address] Yuri Saunders MD [address] [place] [address] Dr [address] [place] [facility] drug therapy Social History Tobacco Use [...] Diagnosis Comments CBC WITH AUTO DIFFERENTIAL Routine 02/20/2025 7:00 AM EDT [facility] drug therapy CBC AND DIFFERENTIAL Routine 02/20/2025 7:00 AM EDT Other medical terminologist (current) drug therapy THYROID STIMULATING HORMONE Routine 02/20/2025 7:00 AM EDT Other medical terminologist (current) drug therapy THYROXINE FREE Routine 02/20/2025 7:00 AM EDT Other [facility] drug therapy HEMOGLOBIN A1C Routine 02/20/2025 7:00 AM EDT Other [facility] drug therapy AMMONIA Routine 02/20/2025 7:00 AM EDT Other medical terminologist (current) drug therapy COMPREHENSIVE METABOLIC PANEL Routine 02/20/2025 7:00 AM EDT Other [facility] drug therapy documented in this encounter Results * (ABNORMAL) CBC auto differential (02/20/2025 7:00 AM EDT) [facility] WBC 8.3 4.8 - 10.8 K/mcL LAB HEMETOLOGY METHOD 02/20/2025 8:00 AM [facility] LAB RBC 4.00(L) 4.50 - 5.50 M/mcL LAB HEMETOLOGY METHOD 02/20/2025 8:00 AM [facility] LAB Hemoglobin 10.8(L) 13.5 - 17.5 g/dL LAB HEMETOLOGY METHOD 02/20/2025 8:00 AM [facility] LAB Hematocrit 33.7(L) 42.0 - 54.0 % LAB HEMETOLOGY METHOD 02/20/2025 8:00 AM [facility] LAB MCV 84.0 79.0 - 98.0 FL LAB HEMETOLOGY METHOD 02/20/2025 8:00 AM [facility] LAB MCH 26.9(L) 27.0 - 32.0 pcg LAB HEMETOLOGY METHOD 02/20/2025 8:00 AM [facility] LAB MCHC 32.0 32.0 - 37.0 g/dL LAB HEMETOLOGY METHOD 02/20/2025 8:00 AM [facility] LAB RDW 15.1(H) 11.0 - 15.0 % LAB HEMETOLOGY METHOD 02/20/2025 8:00 AM [facility] LAB Platelets 289 130 - 400 K/mcL LAB HEMETOLOGY METHOD 02/20/2025 8:00 AM [facility] LAB MPV 9.0 7.0 - 11.0 FL LAB HEMETOLOGY METHOD 02/20/2025 8:00 AM [facility] LAB NRBC 0.0 <1.0 % LAB HEMETOLOGY METHOD 02/20/2025 8:00 AM [facility] LAB NRBC Absolute 0.00 <0.10 K/mcL LAB HEMETOLOGY METHOD 02/20/2025 8:00 AM [facility] LAB Neutrophils Relative 64.8 % LAB HEMETOLOGY METHOD 02/20/2025 8:00 AM [facility] LAB Lymphocytes Relative 17.8 % LAB HEMETOLOGY METHOD 02/20/2025 8:00 AM [facility] LAB Monocytes Relative 14.4 % LAB HEMETOLOGY METHOD 02/20/2025 8:00 AM [facility] LAB Eosinophils Relative 2.3 % LAB HEMETOLOGY METHOD 02/20/2025 8:00 AM [facility] LAB Basophils Relative 0.5 % LAB HEMETOLOGY METHOD 02/20/2025 8:00 AM [facility] LAB Immature Granulocytes Relative 0.2 % LAB HEMETOLOGY METHOD 02/20/2025 8:00 AM [facility] LAB Neutrophils Absolute 5.39 1.50 - 7.00 K/mcL LAB HEMETOLOGY METHOD 02/20/2025 8:00 AM [facility] LAB Lymphocytes Absolute 1.48 1.00 - 5.00 K/mcL LAB HEMETOLOGY METHOD 02/20/2025 8:00 AM [facility] LAB Monocytes Absolute 1.20(H) 0.20 - 1.00 K/mcL LAB HEMETOLOGY METHOD 02/20/2025 8:00 AM [facility] LAB Eosinophils Absolute 0.19 0.00 - 0.50 K/mcL LAB HEMETOLOGY METHOD 02/20/2025 8:00 AM [facility] LAB Basophils Absolute 0.04 0.00 - 0.20 K/mcL LAB HEMETOLOGY METHOD 02/20/2025 8:00 AM EDT [facility] LAB Immature Granulocytes Absolute 0.02 0.00 - 0.03 K/mcL LAB HEMETOLOGY METHOD 02/20/2025 8:00 AM EDT [facility] LAB Blood Venous blood specimen / Unknown 02/20/2025 7:00 AM EDT 02/20/2025 7:41 AM EDT us Yuri Saunders MD LAB BLOOD ORDERABLES Final Resul t Performing Organization Address [facility]/ZIP Co de Phone Number [facility] LAB [address] [place] [address], [place] [phone] * Thyroid stimulating hormone (02/20/2025 7:00 AM EDT) TSH 0.96 0.40 - 4.00 mcIU/mL LAB CHEMISTRY METHOD 02/20/2025 9:49 AM EDT [facility] Blood Venous blood specimen / Unknown 02/20/2025 7:00 AM EDT 02/20/2025 7:41 AM EDT us Yuri Saunders MD LAB BLOOD ORDERABLES Final Resul t Performing Organization Address [facility]/ZIP Co de Phone Number [facility] [address] [place] [address], [place] [phone] * Hemoglobin A1c (02/20/2025 7:00 AM EDT) Hemoglobin A1C 6.2 <6.5 % LAB CHEMISTRY METHOD 02/20/2025 9:32 AM EDT [facility] Mean Bld Glu Estim. 131 mg/dL LAB CHEMISTRY METHOD 02/20/2025 9:32 AM EDT [facility] Blood Venous blood specimen / Unknown 02/20/2025 7:00 AM EDT 02/20/2025 7:41 AM EDT us Yuri Saunders MD LAB BLOOD ORDERABLES Final Resul t Performing Organization Address [facility] de Phone Number [facility] [address] [place] [address], [place] [phone] * Thyroxine free (02/20/2025 7:00 AM EDT) Free T4 1.29 0.70 - 1.80 ng/dL LAB CHEMISTRY METHOD 02/20/2025 9:49 AM EDT [facility] Blood Venous blood specimen / Unknown 02/20/2025 7:00 AM EDT 02/20/2025 7:41 AM EDT us Yuri Saunders MD LAB BLOOD ORDERABLES Final Resul t Performing Organization Address [facility] de Phone Number [facility] [address] [place] [address], [place] [phone] * (ABNORMAL) Ammonia (02/20/2025 7:00 AM EDT) Ammonia 47(H) 11 - 35 mcmol/L LAB CHEMISTRY METHOD 02/20/2025 8:14 AM EDT [facility] Blood Venous blood specimen / Unknown 02/20/2025 7:00 AM EDT 02/20/2025 7:41 AM EDT us Yuri Saunders MD LAB BLOOD ORDERABLES Final Resul t Performing Organization Address [facility] de Phone Number [facility] [address] [place] [address], [place] [phone] * (ABNORMAL) Comprehensive metabolic panel (02/20/2025 7:00 AM EDT) Sodium 138 133 - 145 mmol/L LAB CHEMISTRY METHOD 02/20/2025 8:25 AM EDT [facility] Potassium 4.1 3.5 - 5.5 mmol/L LAB CHEMISTRY METHOD 02/20/2025 8:25 AM [facility] Chloride 103 96 - 110 mmol/L LAB CHEMISTRY METHOD 02/20/2025 8:25 AM [facility] CO2 33(H) 21 - 32 mmol/L LAB CHEMISTRY METHOD 02/20/2025 8:25 AM [facility] Anion Gap 2(L) 3 - 11 LAB CHEMISTRY METHOD 02/20/2025 8:25 AM [facility] LAB Glucose 87 70 - 100 mg/dL LAB CHEMISTRY METHOD 02/20/2025 8:25 AM [facility] BUN 14 5 - 25 mg/dL LAB CHEMISTRY METHOD 02/20/2025 8:25 AM [facility] LAB Creatinine 0.56(L) 0.70 - 1.30 mg/dL LAB CHEMISTRY METHOD 02/20/2025 8:25 AM [facility] LAB eGFR 111 >=60 mL/min/1. 73m2 LAB CHEMISTRY METHOD 02/20/2025 8:25 AM [facility] LAB Comment:Calculation based on the Chronic Kidney Disease Epidemiology Collaboration (CKD-EPI) equation refit without adjustment for race. BUN/Creatinine Ratio 25.0 LAB CHEMISTRY METHOD 02/20/2025 8:25 AM [facility] LAB Calcium 8.7 8.5 - 10.5 mg/dL LAB CHEMISTRY METHOD 02/20/2025 8:25 AM [facility] AST (SGOT) 40 10 - 42 unit/L LAB CHEMISTRY METHOD 02/20/2025 8:25 AM [facility] ALT (SGPT) 49 10 - 60 unit/L LAB CHEMISTRY METHOD 02/20/2025 8:25 AM [facility] Alkaline Phosphatase 196(H) 42 - 121 unit/L LAB CHEMISTRY METHOD 02/20/2025 8:25 AM [facility] Total Protein 6.6 6.0 - 8.0 g/dL LAB CHEMISTRY METHOD 02/20/2025 8:25 AM EDT [facility] Albumin 2.6(L) 3.2 - 5.0 g/dL LAB CHEMISTRY METHOD 02/20/2025 8:25 AM EDT [facility] Total Bilirubin 0.3 0.0 - 1.4 mg/dL LAB CHEMISTRY METHOD 02/20/2025 8:25 AM EDT [facility] Blood Venous blood specimen / Unknown 02/20/2025 7:00 AM EDT 02/20/2025 7:41 AM EDT us Yuri Saunders MD LAB BLOOD ORDERABLES Final Resul t [facility] [address] [place] [address], documented in this encounter Visit Diagnoses Diagnosis Other [facility]) drug therapy documented in this encounter Care Teams Polytechnic Registrar Relationship Specialty Start Date End Date Yuri Saunders MD [address] [place] [address] Dr [address] [place]EL[place] Wolf PCP - General Internal Medicine 08/06/24 documented as of this encounter
--- OUTSIDE RECORDS SUMMARY | 2025-03-25 05:41 | XMS_ITS | Encounter Summary ---
Author Organization [employer] Address [address] [place] [address] Care Team Providers Care Kitchen Worker Name Role Phone Yuri Saunders MD Primary Care Provider [phone] Encounter Details Date Type Department Care Team (Late st Contact Info) Description 08/06/2024 Lab Requisition [facility] - Main Lab [address] [facility] [place] [address] Yuri Saunders MD [address] [place] [address] [address] [place], [place] Urinary tract infection, site not specified [...] Hold for add-ons. 08/06/2024 2:01 AM EDT [facility] Comment:Auto resulted. Urine Urine specimen obtained by clean catch procedure / Unknown 08/05/2024 10:30 PM EDT 08/06/2024 12:27 AM EDT us Yuri Saunders MD LAB URINE ORDERABLES Final Resul t Performing Organization Address [facility] de Phone Number [facility] [address] [place] [address], [place] [phone] * Rueda urine culture tube (08/05/2024 10:30 PM EDT) Extra Tube Hold for add-ons. 08/06/2024 2:01 AM EDT [facility] LAB Comment:Auto resulted. Urine Urine specimen obtained by clean catch procedure / Unknown 08/05/2024 10:30 PM EDT 08/06/2024 12:27 AM EDT us Yuri Saunders MD LAB URINE ORDERABLES Final Resul t Performing Organization Address [facility] de Phone Number [facility] [address] [place] [address], [place] [phone] * Urinalysis with reflex microscopic and culture (08/05/2024 10:30 PM EDT) Pathologist [facility] Specific [place] Urine 1.020 1.003 - 1.030 LAB URINALYSIS - AUTOMATED METHOD 08/06/2024 12:33 AM EDT [facility] pH, Urine 6.5 5.0 - 8.0 pH LAB URINALYSIS - AUTOMATED METHOD 08/06/2024 12:33 AM EDT [facility] Leukocytes, Urine Negative Negative LAB URINALYSIS - AUTOMATED METHOD 08/06/2024 12:33 AM EDT [facility] Nitrite, Urine Negative Negative LAB URINALYSIS - AUTOMATED METHOD 08/06/2024 12:33 AM EDT [facility] Protein, Urine Negative <=Trace mg/dL LAB URINALYSIS - AUTOMATED METHOD 08/06/2024 12:33 AM EDT [facility] Glucose, Urine Negative Negative mg/dL LAB URINALYSIS - AUTOMATED METHOD 08/06/2024 12:33 AM [facility] Ketones, Urine Negative Negative mg/dL LAB URINALYSIS - AUTOMATED METHOD 08/06/2024 12:33 AM T [facility] Urobilinogen, Urine 1.0 0.2 - 1.0 mg/dL LAB URINALYSIS - AUTOMATED METHOD 08/06/2024 12:33 AM T [facility] Bilirubin, Urine Negative Negative LAB URINALYSIS - AUTOMATED METHOD 08/06/2024 12:33 AM [facility] Blood, Urine Negative Negative LAB URINALYSIS - AUTOMATED METHOD 08/06/2024 12:33 AM [facility] Urine Urine specimen obtained by clean catch procedure / Unknown 08/05/2024 10:30 PM EDT 08/06/2024 12:27 AM EDT us Yuri Saunders MD LAB URINE ORDERABLES Final Resul t [facility] [address] [place] [address], documented in this encounter Visit Diagnoses Diagnosis Urinary tract infection, site not specified documented in this encounter Care Teams Kitchen Worker Relationship Specialty Start Date End Date Yuri Saunders MD [address] [place] [address] [address] [place] PCP - General Internal Medicine 08/06/24 documented as of this encounter
--- OUTSIDE RECORDS SUMMARY | 2025-03-25 05:41 | XMS_ITS | Encounter Summary ---
Author Organization [facility] Address [address] [place] [address] Care Team Providers Care Water Chaser Name Role Phone Yuri Saunders MD Primary Care Provider Encounter Details Date Type Department Care Team (Late st Contact Info) Description 08/02/2024 Lab Requisition [facility] - Main Lab [address] [facility] [place] [address] Yuri Saunders MD [address] [place] [address] [address] [place], [place] Other residential (current) drug therapy Social History Tobacco Use [...] GOLD Routine 08/02/2024 6:15 AM EDT Other residential (current) drug therapy HALOPERIDOL LEVEL Routine 08/02/2024 6:1 5 AM EDT Other exterminator helper termite (current) drug therapy OXCARBAZEPINE LEVEL Routine 08/02/2024 6 :15 AM EDT Other exterminator helper termite (current) drug therapy COMPLETE BLOOD COUNT Routine 08/02/2024 6:15 AM EDT Other exterminator helper termite (current) drug therapy AMMONIA Routine 08/02/2024 6:15 AM EDT Other exterminator helper termite (current) drug therapy COMPREHENSIVE METABOLIC PANEL Routine 08/02/2024 6:15 AM EDT Other exterminator helper termite (current) drug therapy documented in this encounter Results * SST tube (08/02/2024 6:15 AM EDT) Pathologist [facility] Extra Tube Hold for add-ons. 08/02/2024 8:01 AM [facility] Comment:Auto resulted. Blood Venous blood specimen / Unknown 08/02/2024 6:15 AM EDT 08/02/2024 6:47 AM EDT Yuri Saunders MD LAB BLOOD ORDERABLES Final Resul t [facility] [address] [place] [address], * (ABNORMAL) Complete blood count (08/02/2024 6:15 AM EDT) Pathologist [facility] WBC 6.2 4.8 - 10.8 K/mcL LAB HEMETOLOGY METHOD 08/02/2024 7:04 AM [facility] RBC 3.90(L) 4.50 - 5.50 M/mcL LAB HEMETOLOGY METHOD 08/02/2024 7:04 AM [facility] Hemoglobin 10.1(L) 13.5 - 17.5 g/dL LAB HEMETOLOGY METHOD 08/02/2024 7:04 AM [facility] Hematocrit 32.5(L) 42.0 - 54.0 % LAB HEMETOLOGY METHOD 08/02/2024 7:04 AM [facility] MCV 82.9 79.0 - 98.0 FL LAB HEMETOLOGY METHOD 08/02/2024 7:04 AM [facility] MCH 25.8(L) 27.0 - 32.0 pcg LAB HEMETOLOGY METHOD 08/02/2024 7:04 AM [facility] MCHC 31.1(L) 32.0 - 37.0 g/dL LAB HEMETOLOGY METHOD 08/02/2024 7:04 AM EDT [facility] RDW 16.9(H) 11.0 - 15.0 % LAB HEMETOLOGY METHOD 08/02/2024 7:04 AM EDT [facility] Platelets 277 130 - 400 K/mcL LAB HEMETOLOGY METHOD 08/02/2024 7:04 AM EDT [facility] MPV 9.0 7.0 - 11.0 FL LAB HEMETOLOGY METHOD 08/02/2024 7:04 AM EDT [facility] NRBC 0.0 <1.0 % LAB HEMETOLOGY METHOD 08/02/2024 7:04 AM EDT [facility] NRBC Absolute 0.00 <0.10 K/mcL LAB HEMETOLOGY METHOD 08/02/2024 7:04 AM EDT [facility] Blood Venous blood specimen / Unknown 08/02/2024 6:15 AM EDT 08/02/2024 6:47 AM EDT Yuri Saunders MD LAB BLOOD ORDERABLES Final Resul t [facility] [address] [place] [address], * (ABNORMAL) Oxcarbazepine level (08/02/2024 6:15 AM EDT) Oxcarbazepine 5.2(L) 10 - 35 ug/mL 08/05/2024 12:30 PM EDT [facility] Comment: If applicable, any drug confirmation testing reported here was developed and the performance characteristics determined by [facility]. This confirmation testing has not been cleared or approved by the FDA. The laboratory is regulated under CLIA as qualified to perform high-complexity testing. This test is used for patient testing purposes. It should not be regarded as investigational or for research. Test performed at [facility], [address] , [place] [address] Alanna Escalante MD, PhD - Online Merchandising Specialist Blood Venous blood specimen / Unknown 08/02/2024 6:15 AM EDT 08/02/2024 6:47 AM EDT us Yuri Saunders MD LAB BLOOD ORDERABLES Final Resul t Performing Organization Address [facility]/ZIP Co de Phone Number [facility] [address] [place] [address] * (ABNORMAL) Haloperidol level (08/02/2024 6:15 AM EDT) Haloperidol 16(H) 5 - 15 ng/mL 08/14/2024 4:21 PM EDT [facility] Comment: This test was developed and its analytical performance characteristics have been determined by [facility]. It has not been cleared or approved by the FDA. This assay has been validated pursuant to the CLIA regulations and is used for clinical purposes. TEST PERFORMED AT: [facility] [address] [id number] GOLDIE DAS MD Blood Venous blood specimen / Unknown 08/02/2024 6:15 AM EDT 08/02/2024 6:47 AM EDT us Yuri Saunders MD LAB BLOOD ORDERABLES Final Resul t Performing Organization Address [facility] de Phone Number [facility] [address] [place] [address] * (ABNORMAL) Ammonia (08/02/2024 6:15 AM EDT) Ammonia 50(H) 11 - 35 mcmol/L LAB CHEMISTRY METHOD 08/02/2024 7:19 AM EDT [facility] Blood Venous blood specimen / Unknown 08/02/2024 6:15 AM EDT 08/02/2024 6:47 AM EDT us Yuri Saunders MD LAB BLOOD ORDERABLES Final Resul t Performing Organization Address City/[facility]/ZIP Co de Phone Number [facility] [address] [place] [address], * (ABNORMAL) Comprehensive metabolic panel (08/02/2024 6:15 AM EDT) Sodium 137 133 - 145 mmol/L LAB CHEMISTRY METHOD 08/02/2024 8:26 AM [facility] Potassium 4.4 3.5 - 5.5 mmol/L LAB CHEMISTRY METHOD 08/02/2024 8:26 AM [facility] Comment:Hemolysis present Chloride 104 96 - 110 mmol/L LAB CHEMISTRY METHOD 08/02/2024 8:26 AM [facility] CO2 29 21 - 32 mmol/L LAB CHEMISTRY METHOD 08/02/2024 8:26 AM [facility] Anion Gap 4 3 - 11 LAB CHEMISTRY METHOD 08/02/2024 8:26 AM [facility] Glucose 78 70 - 100 mg/dL LAB CHEMISTRY METHOD 08/02/2024 8:26 AM [facility] BUN 17 5 - 25 mg/dL LAB CHEMISTRY METHOD 08/02/2024 8:26 AM [facility] Creatinine 0.46(L) 0.70 - 1.30 mg/dL LAB CHEMISTRY METHOD 08/02/2024 8:26 AM [facility] eGFR 118 >=60 mL/min/1. 73m2 LAB CHEMISTRY METHOD 08/02/2024 8:26 AM [facility] Comment:Calculation based on the Chronic Kidney Disease Epidemiology Collaboration (CKD-EPI) equation refit without adjustment for race. BUN/Creatinine Ratio 37.0 LAB CHEMISTRY METHOD 08/02/2024 8:26 AM [facility] Calcium 8.6 8.5 - 10.5 mg/dL LAB CHEMISTRY METHOD 08/02/2024 8:26 AM [facility] AST (SGOT) 26 10 - 42 unit/L LAB CHEMISTRY METHOD 08/02/2024 8:26 AM T [facility] Comment:Hemolysis present ALT (SGPT) 27 10 - 60 unit/L LAB CHEMISTRY METHOD 08/02/2024 8:26 AM T [facility] Alkaline Phosphatase 171(H) 42 - 121 unit/L LAB CHEMISTRY METHOD 08/02/2024 8:26 AM T [facility] Total Protein 6.8 6.0 - 8.0 g/dL LAB CHEMISTRY METHOD 08/02/2024 8:26 AM T [facility] Albumin 2.8(L) 3.2 - 5.0 g/dL LAB CHEMISTRY METHOD 08/02/2024 8:26 AM [facility] Total Bilirubin 0.3 0.0 - 1.4 mg/dL LAB CHEMISTRY METHOD 08/02/2024 8:26 AM [facility] Blood Venous blood specimen / Unknown 08/02/2024 6:15 AM EDT 08/02/2024 6:47 AM EDT us Yuri Saunders MD LAB BLOOD ORDERABLES Final Resul t [facility] [address] [place] [address], documented in this encounter Visit Diagnoses Diagnosis Other exterminator helper termite (current) drug therapy documented in this encounter Care Teams Water Chaser Relationship Specialty Start Date End Date Yuri Saunders MD [address] [employer], [place] PCP - General Internal Medicine 08/06/24 documented as of this encounter
--- OUTSIDE RECORDS SUMMARY | 2025-03-25 05:41 | XMS_ITS | Encounter Summary ---
Author Organization [facility] Address [address] [place] [address] Care Team Providers Care Side Stitcher Name Role Phone Yuri Saunders MD Primary Care Provider [phone] Encounter Details Date Type Department Care Team (Late st Contact Info) Description 07/03/2024 Lab Requisition [facility] - Main Lab [address] [place] [address] Yuri Saunders MD [address] [place] [address] Dr [address] [place], [place] Schizophrenia, unspecified (CMS/HCC V24, CMS/HCC V28) [...] PM EST) WBC 7.2 4.8 - 10.8 K/[facility] HEMETOLOGY METHOD 07/03/2024 7:28 PM EST [facility] RBC 4.40(L) 4.50 - 5.50 M/[facility] HEMETOLOGY METHOD 07/03/2024 7:28 PM EST [facility] Hemoglobin 11.2(L) 13.5 - 17.5 g/dL LAB HEMETOLOGY METHOD 07/03/2024 7:28 PM [facility] Hematocrit 36.0(L) 42.0 - 54.0 % LAB HEMETOLOGY METHOD 07/03/2024 7:28 PM [facility] MCV 82.6 79.0 - 98.0 FL LAB HEMETOLOGY METHOD 07/03/2024 7:28 PM [facility] MCH 25.7(L) 27.0 - 32.0 pcg LAB HEMETOLOGY METHOD 07/03/2024 7:28 PM [facility] MCHC 31.1(L) 32.0 - 37.0 g/dL LAB HEMETOLOGY METHOD 07/03/2024 7:28 PM [facility] RDW 17.2(H) 11.0 - 15.0 % LAB HEMETOLOGY METHOD 07/03/2024 7:28 PM [facility] Platelets 363 130 - 400 K/mcL LAB HEMETOLOGY METHOD 07/03/2024 7:28 PM [facility] MPV 8.9 7.0 - 11.0 FL LAB HEMETOLOGY METHOD 07/03/2024 7:28 PM [facility] NRBC 0.0 <1.0 % LAB HEMETOLOGY METHOD 07/03/2024 7:28 PM [facility] NRBC Absolute 0.00 <0.10 K/mcL LAB HEMETOLOGY METHOD 07/03/2024 7:28 PM [facility] Neutrophils Relative 67.5 % LAB HEMETOLOGY METHOD 07/03/2024 7:28 PM [facility] Lymphocytes Relative 21.3 % LAB HEMETOLOGY METHOD 07/03/2024 7:28 PM [facility] Monocytes Relative 9.4 % LAB HEMETOLOGY METHOD 07/03/2024 7:28 PM EST [facility] Eosinophils Relative 1.1 % LAB HEMETOLOGY METHOD 07/03/2024 7:28 PM [facility] Basophils Relative 0.4 % LAB HEMETOLOGY METHOD 07/03/2024 7:28 PM [facility] Immature Granulocytes Relative 0.3 % LAB HEMETOLOGY METHOD 07/03/2024 7:28 PM [facility] Neutrophils Absolute 4.87 1.50 - 7.00 K/mcL LAB HEMETOLOGY METHOD 07/03/2024 7:28 PM [facility] Lymphocytes Absolute 1.54 1.00 - 5.00 K/mcL LAB HEMETOLOGY METHOD 07/03/2024 7:28 PM [facility] Monocytes Absolute 0.68 0.20 - 1.00 K/mcL LAB HEMETOLOGY METHOD 07/03/2024 7:28 PM [facility] Eosinophils Absolute 0.08 0.00 - 0.50 K/mcL LAB HEMETOLOGY METHOD 07/03/2024 7:28 PM [facility] Basophils Absolute 0.03 0.00 - 0.20 K/mcL LAB HEMETOLOGY METHOD 07/03/2024 7:28 PM [facility] Immature Granulocytes Absolute 0.02 0.00 - 0.03 K/mcL LAB HEMETOLOGY METHOD 07/03/2024 7:28 PM [facility] Blood Venous blood specimen / Unknown 07/03/2024 6:35 PM EST 07/03/2024 7:06 PM EST Yuri Saunders MD LAB BLOOD ORDERABLES Final Resul t [facility] [address] [place] [address], documented in this encounter Visit Diagnoses Diagnosis Schizophrenia, unspecified (CMS/HCC V24, CMS/HCC V28) documented in this encounter Care Teams Side Stitcher Relationship Specialty Start Date End Date Yuri Saunders MD [address] [place] [address] Dr [address] MELODIE Wolf PCP - General Internal Medicine 08/06/24 documented as of this encounter
--- OUTSIDE RECORDS SUMMARY | 2025-03-25 05:42 | XMS_ITS | Clinical Summary ---
Author Organization [address] 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 02/19/2025 Lab Requisition [facility] [address] [place] [address] Yuri Saunders MD Type 2 diabetes mellitus with foot ulcer (CODE) (CMS/HCC V24, CMS/HCC V28); Disorder of urea cycle metabolism, unspecified (CMS/HCC V24); Hypothyroidism, unspecified; Iron deficiency from Last 3 Months Social History Tobacco Use Types Packs/Day Years Used Date Smoking Tobacco: Never Assessed Sex and Gender Information Value Date Recorded Sex Assigned at Not on file Legal Sex Male 10:10 AM EST Gender Identity Not on file Sexual Orientation Not on file Plan of Treatment Health Maintenance Due Date Last Done Comments Colorectal Cancer Screening: Colonoscopy 1961 Diabetes: Annual Foot Exam 08/24/1971 Diabetes: Annual Retina Eye Exam 08/24/1971 DTaP,Tdap,and Td Vaccines (1 - Tdap) 1980 Pneumococcal Vaccine: 50+ Years (1 of 2 - PCV) 1980 Zoster Vaccines (1 of 2) 08/24/2011 Depression Screening 05/08/2024 COVID-19 Vaccine (1 - 2024- season) 2025 Influenza Vaccine (#1) 2025 Diabetes: Annual Urine Albumin-Creatinine Ratio (uACR) 02/20/2025 HIV Screening 02/20/2025 Hepatitis C Screening 02/20/2025 Social Influencers of Health Screening 02/20/2025 Diabetes: Blood Sugar Control Test (HGBA1C) 08/21/2025 02/20/2025, 11/18/2024, 08/19/2024 Diabetes: Annual GFR (Glomerular Filtration Rate) 02/20/2026 02/20/2025, 11/18/2024, 08/19/2024, Additional history exists Cholesterol Screening (Lipid Panel) 08/19/2029 08/19/2024 RSV Immunization Adult Patients (1 - 1-dose 75+ series) 2036 HIB [...] to complete this topic RSV Immunization Patients Under 20 months Aged Out No longer eligible based on patient's age to complete this topic Varicella Vaccines Aged Out No longer eligible based on patient's age to complete this topic Procedures Procedure Name Priority Date/Time Associated Diagnosis Comments CBC WITH AUTO DIFFERENTIAL Routine 02/20/2025 7:00 AM EDT [facility] [place] drug [facility] THYROID STIMULATING HORMONE Routine 02/20/2025 7:00 AM EDT [facility] [place] drug therapy HEMOGLOBIN A1C Routine 02/20/2025 7:00 AM EDT [facility] [place] drug therapy THYROXINE FREE Routine 02/20/2025 7:00 AM EDT 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 CBC AND DIFFERENTIAL Routine 02/20/2025 7:00 AM EDT [facility] [place] drug therapy AMMONIA Routine 02/20/2025 7:00 AM EDT [facility] [place] drug therapy COMPREHENSIVE METABOLIC PANEL Routine 02/20/2025 7:00 AM EDT [facility] [place] ([facility] drug therapy LIPID PANEL WITH REFLEX TO DIRECT LDL Routine 08/19/2024 7:05 AM EDT Type 2 diabetes mellitus with foot ulcer (CODE) ([facility] V24, [facility] V28) Essential (primary) hypertension Hyperlipidemia, unspecified from Last 3 Months or Most Recently Relevant to Health Maintenance Results * (ABNORMAL) CBC auto differential (02/20/2025 7:00 AM EDT) [facility] WBC 8.3 4.8 - 10.8 K/mcL LAB [...] LAB HEMETOLOGY METHOD 02/20/2025 8:00 AM EDT [facility] Eosinophils Absolute 0.19 0.00 - 0.50 K/[facility] HEMETOLOGY METHOD 02/20/2025 8:00 AM EDT [facility] Basophils Absolute 0.04 0.00 - 0.20 K/[facility] HEMETOLOGY METHOD 02/20/2025 8:00 AM EDT [facility] Immature Granulocytes Absolute 0.02 0.00 - 0.03 K/mcL LAB HEMETOLOGY METHOD 02/20/2025 8:00 AM EDT [facility] Blood Venous blood specimen / Unknown 02/20/2025 7:00 AM EDT 02/20/2025 7:41 AM EDT us Yuri Saunders MD LAB BLOOD ORDERABLES Final Resul t Performing Organization Address City/[facility]/ZIP Co de Phone Number [facility] [address] [place] [address], [place] [phone] * Thyroid stimulating hormone (02/20/2025 7:00 AM EDT) TSH 0.96 0.40 - 4.00 mcIU/mL LAB CHEMISTRY METHOD 02/20/2025 9:49 AM EDT [facility] Blood Venous blood specimen / Unknown 02/20/2025 7:00 AM EDT 02/20/2025 7:41 AM EDT us Yuri Saunders MD LAB BLOOD ORDERABLES Final Resul t [facility] [address] [place] [address], [place] [phone] * Thyroxine free (02/20/2025 7:00 AM EDT) Free T4 1.29 0.70 - 1.80 ng/dL LAB CHEMISTRY METHOD 02/20/2025 9:49 AM EDT [facility] Blood Venous blood specimen / Unknown 02/20/2025 7:00 AM EDT 02/20/2025 7:41 AM EDT us Yuri Saunders MD LAB BLOOD ORDERABLES Final Resul t Performing Organization Address [facility] [[email or web address]] Co de Phone Number [facility] [address] [place] [address], [place] [phone] * Hemoglobin A1c (02/20/2025 7:00 AM EDT) [facility] Hemoglobin A1C 6.2 <6.5 % LAB CHEMISTRY METHOD 02/20/2025 9:32 AM EDT [facility] Mean Bld Glu Estim. 131 mg/dL LAB CHEMISTRY METHOD 02/20/2025 9:32 AM EDT [facility] Blood Venous blood specimen / Unknown 02/20/2025 7:00 AM EDT 02/20/2025 7:41 AM EDT us Yuri Saunders MD LAB BLOOD ORDERABLES Final Resul t Performing Organization Address [facility] de Phone Number [facility] [address] [place] [address], [place] [phone] * (ABNORMAL) Ammonia (02/20/2025 7:00 AM EDT) [facility] Ammonia 47(H) 11 - 35 mcmol/L LAB CHEMISTRY METHOD 02/20/2025 8:14 AM EDT [facility] Blood Venous blood specimen / Unknown 02/20/2025 7:00 AM EDT 02/20/2025 7:41 AM EDT us Yuri Saunders MD LAB BLOOD ORDERABLES Final Resul t Performing Organization Address City/[facility] de Phone Number [facility] [address] [place] [address], [place] [phone] * (ABNORMAL) Comprehensive metabolic panel (02/20/2025 7:00 AM EDT) Sodium 138 133 - 145 mmol/L LAB CHEMISTRY METHOD 02/20/2025 8:25 AM T [facility] Potassium 4.1 3.5 - 5.5 [...] unit/L LAB CHEMISTRY METHOD 02/20/2025 8:25 AM EDT [facility] ALT (SGPT) 49 10 - 60 unit/L LAB CHEMISTRY METHOD 02/20/2025 8:25 AM EDT [facility] Alkaline Phosphatase 196(H) 42 - 121 unit/L LAB CHEMISTRY METHOD 02/20/2025 8:25 AM EDT [facility] Total Protein 6.6 6.0 - 8.0 g/dL LAB CHEMISTRY METHOD 02/20/2025 8:25 AM T [facility] Albumin 2.6(L) 3.2 - 5.0 g/dL LAB CHEMISTRY METHOD 02/20/2025 8:25 AM [facility] Total Bilirubin 0.3 0.0 - 1.4 mg/dL LAB CHEMISTRY METHOD 02/20/2025 8:25 AM T [facility] Blood Venous blood specimen / Unknown 02/20/2025 7:00 AM EDT 02/20/2025 7:41 AM EDT us Yuri Saunders MD LAB BLOOD ORDERABLES Final Resul t [facility] [address] [place] [address], [place] [phone] * Lipid panel with reflex to direct LDL (08/19/2024 7:05 AM EDT) Cholesterol 131 0 - 200 mg/dL LAB CHEMISTRY METHOD 08/19/2024 8:50 AM EDT [facility] Triglycerides 35 0 - 150 mg/dL LAB CHEMISTRY METHOD 08/19/2024 8:50 AM EDT [facility] HDL 57 >=40 mg/dL LAB CHEMISTRY METHOD 08/19/2024 8:50 AM EDT [facility] LDL Calculated 67 0 - 100 mg/dL LAB CHEMISTRY METHOD 08/19/2024 8:50 AM EDT [facility] VLDL Cholesterol Chris 7 mg/dL LAB CHEMISTRY METHOD 08/19/2024 8:50 AM EDT [facility] Non HDL Chol. (LDL+VLDL) 74 <145 mg/dL LAB CHEMISTRY METHOD 08/19/2024 8:50 AM EDT [facility] Chol/HDL Ratio 2.3 0.0 - 4.4 LAB CHEMISTRY METHOD 08/19/2024 8:50 AM EDT [facility] Blood Venous blood specimen / Unknown 08/19/2024 7:05 AM EDT 08/19/2024 8:02 AM EDT us Yuri Saunders MD LAB BLOOD ORDERABLES Final Resul t [facility] [address] [place] [address], from Last 3 Months or Most Recently Relevant to Health Maintenance Insurance MEDICAID - [place] Care Teams Torch Solderer Relationship Specialty Start Date End Date Yuri Saunders MD [address] [place] [address] Dr [address] [place], [place] PCP - General Internal Medicine 08/06/24
== END 2025-03-24 15:42 | disposition home or self-care (01) ==
LOC: HO.HOS 15:03
PROVIDERS: PCP Hospitalist
DX: G56.23 Lesion of ulnar nerve, bilateral upper limbs (principal); G56.02 Carpal tunnel syndrome, left upper limb
CPT/HCPCS: 99213

== ENCOUNTER → 2025-03-24 15:02 | Outpatient (BNVA) | payer MEDICAID, SELFPAY | PROVIDERS: PCP Hospitalist | DX: Z71.2 Person consulting for explanation of examination or test findings (principal); G56.23 Lesion of ulnar nerve, bilateral upper limbs; G56.02 Carpal tunnel syndrome, left upper limb | CPT/HCPCS: 99212 ==

== ENCOUNTER 2025-04-22 14:29 | Outpatient (AMB) | payer MEDICAID, SELFPAY ==
--- NOTE | 2025-04-22 14:50 | A.OFFVIS_ITS ---
Intake Visit Reasons: OV-Discuss surgery CTS left hand Intake Note: Kayode is a 64 year old male right hand dominant who presents today as a new patient to Discuss surgery CTS left hand. Patient was referred by Kristal Serrato on 03/24/25 at their visit it was discussed that the patient should have surgery, due to his extremely significant past medical history, he should meet with Dr. Fritz the hand surgeon prior to any registration for surgery. At today's visit he states both hands go numb and has tingling, states this happens daily and is constant. Patient resides at [facility] in [place]. IMPRESSION: 1. This is an abnormal study. 2. There is electrodiagnostic evidence for bilateral ulnar neuropathy at the elbow. 3. There is electrodiagnostic evidence for left moderate-severe median neuropathy at the wrist, consistent with Carpal Tunnel Syndrome. 4. There is suggestion of a right C5-6 chronic radiculopathy. Allergies penicillin V Allergy (Unknown, Verified 04/22/25 15:17) Unknown doxycycline Allergy (Verified 04/22/25 15:17) Unknown HPI HPI OV-Discuss surgery CTS left hand: Details: Kayode is a 64 year old right hand dominant man who returns for evaluation his left carpal & cubital tunnel syndrome. Patient resides at [facility] in [place] and is seen with a worker today. He is in a wheelchair Patient could not answer which fingers may have numbness today in clinic. He reportedly complains of stiffness in his fingers, and he has difficulty with gripping activities. Per note from Dr. Pavon on his NCS from 02/07/25, patient has a Hx of: Movement disorder, alcohol dependence, substance dependence, neuropathy, atrial fibrillation on Eliquis, schizophrenia, metabolic encephalopathy, diabetes. [facility] Social History Patient Tobacco Use Status: Tobacco use Unknown Review of Systems Const All systems reviewed & are unremarkable except as noted in HPI and below Physical Exam Const General: cooperative, healthy appearing and no acute distress Orientation/consciousness: patient oriented x3 HEENT Head: Yes normocephalic and Yes atraumatic Eyes EOM: EOMs intact bilaterally Resp Effort & Inspection: normal respiratory effort and able to speak in complete sentences Cardio Jugular venous distension: no JVD Skin General skin exam: turgor normal Rashes: no rashes Neuro General: patient oriented x3 Extrem Other: Evaluation of Bilateral Upper Extremity: The patient is alert, oriented, and in no acute distress He is in a wheelchair, as he is missing part of his left foot and also has back and leg pain He does not really respond to questions with appropriate answers in clinic. He is somewhat difficult to understand & has difficulty reliably following directions today in clinic Neuro: Median, Ulnar, Radial nerves motor grossly intact. Again patient unable to answer whether or not he has numbness in his fingers. No thenar or intrinsic wasting Good APB muscle belly firing and good finger cross Good ABduction & ADduction seen in clinic today Vascular: Cap refill brisk ROM: He can make a fist and extend all his digits Skin: No lacerations or abrasions. General: No Ecchymosis. No Erythema or evidence of infection. Nerve Conduction Study: IMPRESSION: 1. This is an abnormal study. 2. There is electrodiagnostic evidence for bilateral ulnar neuropathy at the elbow. 3. There is electrodiagnostic evidence for left moderate-severe median neuropathy at the wrist, consistent with Carpal Tunnel Syndrome. 4. There is suggestion of a right C5-6 chronic radiculopathy. CLINICAL COMMENT: Recommend further workup to rule out: 1. Rule out cervical spinal stenosis. 2. Rule out polyneuropathy. However doing lower extremity EMG would be difficult. Thank you for your kind referral. Mindy Sánchez MD, [facility] 02/07/25 Psych Appearance: grossly normal Affect: normal affect Attitude: cooperative Assessment & Plan Assessment & Plan (1) Cubital tunnel syndrome, bilateral: Code(s): G56.23 - Lesion of ulnar nerve, bilateral upper limbs Category: Medical (2) Left carpal tunnel syndrome: Code(s): G56.02 - Carpal tunnel syndrome, left upper limb Category: Medical (3) Peripheral arterial disease: Code(s): I73.9 - Peripheral vascular disease, unspecified Category: Medical Plan Assessment & Plan: 1. Left carpal tunnel syndrome, moderate-severe Symptoms unclear, patient poor historian This may benefit from operative intervention. 2. Bilateral cubital tunnel syndrome Symptoms unclear, patient poor historian Difficult to know whether he is having trouble with numbness and tingling in the ulnar nerve distribution. I educated him in his caregiver about this condition I discussed operative and non-operative treatment options He would likely benefit from a carpal tunnel release, under general anesthesia as I do not think he would tolerate a local procedure. I am less likely to want to proceed with cubital tunnel releases at this time without understanding whether or not he is actually symptomatic. At this time, his symptoms are unclear if he has any numbness or tingling. he has no muscle wasting and good function He is suspected to have right C-spine chronic radiculopathy & possible spinal stenosis, and at this time I think he would benefit most from a referral to Physiatry to assess his C-spine I referred him to family Physiatry for assessment of possible chronic radiculopathy and spinal stenosis He can follow up in 6-8 weeks to see how he is doing. This should be a 30 minute appointment Per note from Dr. Pavon on his NCS from 02/07/25, patient has a Hx of: Movement disorder, alcohol dependence, substance dependence, neuropathy, atrial fibrillation on Eliquis, schizophrenia, metabolic encephalopathy, PAD, diabetes. Patient resides at [facility] in [place] & is seen in a wheelchair. Scribed for Allison Fritz MD by Darin Melendez, medical laboratory technicians, on 04/22/25 at 3:30 PM, EST. Orders: Referrals Physiatry Referral G56.02 - Carpal tunnel syndrome, left upper limb Coding Level of Care Code New Pt Level 4 (37619) Diagnoses Cubital tunnel syndrome, bilateral G56.23 Left carpal tunnel syndrome G56.02 Peripheral arterial disease I73.9
--- OUTSIDE RECORDS SUMMARY | 2025-04-22 18:47 | XMS_ITS | Encounter Summary ---
Author Organization [facility] Address [address] [place] [address] Care Team Providers Care Plumbing Assembler Installer Name Role Phone Yuri Saunders MD Primary Care Provider [phone] Encounter Details Date Type Department Care Team (Late st Contact Info) Description 08/19/2024 Lab Requisition [facility] Lab [address] [facility] [place] [address] Yuri Saunders MD [address] [place] [address] [address] [place], [place] Type 2 diabetes mellitus with foot [...] 2 diabetes mellitus with foot ulcer (CODE) ([facility] V24, [facility] V28) Essential (primary) hypertension Hyperlipidemia, unspecified documented in this encounter Results * Lavender tube (08/19/2024 7:05 AM EDT) Extra Tube Hold for add-ons. 08/19/2024 10:02 AM EDT [facility] Comment:Auto resulted. Blood Venous blood specimen / Unknown 08/19/2024 7:05 AM EDT 08/19/2024 8:02 AM EDT us Yuri Saunders MD LAB BLOOD ORDERABLES Final Resul t [facility] [address] [place] [address], [place] [phone] * SST tube (08/19/2024 7:05 AM EDT) Extra Tube Hold for add-ons. 08/19/2024 10:02 AM EDT [facility] Comment:Auto resulted. Blood Venous blood specimen / Unknown 08/19/2024 7:05 AM EDT 08/19/2024 8:02 AM EDT us Yuri Saunders MD LAB BLOOD ORDERABLES Final Resul t [facility] [address] [place] [address], [place] [phone] * Red tube (08/19/2024 7:05 AM EDT) Extra Tube Hold for add-ons. 08/19/2024 10:02 AM EDT [facility] Comment:Auto resulted. Blood Venous blood specimen / Unknown 08/19/2024 7:05 AM EDT 08/19/2024 8:02 AM EDT us Yuri Saunders MD LAB BLOOD ORDERABLES Final Resul t [facility] [address] [place] [address], * (ABNORMAL) CBC auto differential (08/19/2024 7:05 AM EDT) WBC 6.5 4.8 - 10.8 K/mcL LAB HEMETOLOGY METHOD 08/19/2024 8:18 AM [facility] RBC 3.90(L) 4.50 - 5.50 M/mcL LAB HEMETOLOGY METHOD 08/19/2024 8:18 AM [facility] Hemoglobin 10.2(L) 13.5 - 17.5 g/dL LAB HEMETOLOGY METHOD 08/19/2024 8:18 AM [facility] Hematocrit 32.7(L) 42.0 - 54.0 % LAB HEMETOLOGY METHOD 08/19/2024 8:18 AM [facility] MCV 83.4 79.0 - 98.0 FL LAB HEMETOLOGY METHOD 08/19/2024 8:18 AM [facility] MCH 26.0(L) 27.0 - 32.0 pcg LAB HEMETOLOGY METHOD 08/19/2024 8:18 AM [facility] MCHC 31.2(L) 32.0 - 37.0 g/dL LAB HEMETOLOGY METHOD 08/19/2024 8:18 AM [facility] RDW 16.5(H) 11.0 - 15.0 % LAB HEMETOLOGY METHOD 08/19/2024 8:18 AM [facility] Platelets 335 130 - 400 K/mcL LAB HEMETOLOGY METHOD 08/19/2024 8:18 AM [facility] MPV 9.5 7.0 - 11.0 FL LAB HEMETOLOGY METHOD 08/19/2024 8:18 AM [facility] NRBC 0.0 <1.0 % LAB HEMETOLOGY METHOD 08/19/2024 8:18 AM [facility] NRBC Absolute 0.00 <0.10 K/mcL LAB HEMETOLOGY METHOD 08/19/2024 8:18 AM [facility] Neutrophils Relative 62.3 % LAB HEMETOLOGY METHOD 08/19/2024 8:18 AM [facility] Lymphocytes Relative 22.0 % LAB HEMETOLOGY METHOD 08/19/2024 8:18 AM [facility] Monocytes Relative 12.3 % LAB HEMETOLOGY METHOD 08/19/2024 8:18 AM [facility] Eosinophils Relative 2.6 % LAB HEMETOLOGY METHOD 08/19/2024 8:18 AM [facility] Basophils Relative 0.5 % LAB HEMETOLOGY METHOD 08/19/2024 8:18 AM [facility] Immature Granulocytes Relative 0.3 % LAB HEMETOLOGY METHOD 08/19/2024 8:18 AM [facility] Neutrophils Absolute 4.05 1.50 - 7.00 K/mcL LAB HEMETOLOGY METHOD 08/19/2024 8:18 AM [facility] Lymphocytes Absolute 1.43 1.00 - 5.00 K/mcL LAB HEMETOLOGY METHOD 08/19/2024 8:18 AM [facility] Monocytes Absolute 0.80 0.20 - 1.00 K/mcL LAB HEMETOLOGY METHOD 08/19/2024 8:18 AM [facility] Eosinophils Absolute 0.17 0.00 - 0.50 K/[facility] LAB HEMETOLOGY METHOD 08/19/2024 8:18 AM EDT [facility] Basophils Absolute 0.03 0.00 - 0.20 K/[facility] LAB HEMETOLOGY METHOD 08/19/2024 8:18 AM EDT [facility] Immature Granulocytes Absolute 0.02 0.00 - 0.03 K/[facility] LAB HEMETOLOGY METHOD 08/19/2024 8:18 AM EDT [facility] Blood Venous blood specimen / Unknown 08/19/2024 7:05 AM EDT 08/19/2024 8:02 AM EDT us Yuri Saunders MD LAB BLOOD ORDERABLES Final Resul t Performing Organization Address [facility]/ZIP Co de Phone Number [facility] [address] [place] [address], * Thyroid stimulating hormone (08/19/2024 7:05 AM EDT) TSH 1.26 0.40 - 4.00 mcIU/mL LAB CHEMISTRY METHOD 08/19/2024 10:16 AM EDT [facility] Blood Venous blood specimen / Unknown 08/19/2024 7:05 AM EDT 08/19/2024 8:02 AM EDT us Yuri Saunders MD LAB BLOOD ORDERABLES Final Resul t [facility] [address] [place] [address], * (ABNORMAL) Magnesium (08/19/2024 7:05 AM EDT) Magnesium 1.8(L) 1.9 - 2.6 mg/dL LAB CHEMISTRY METHOD 08/19/2024 8:33 AM EDT [facility] Blood Venous blood specimen / Unknown 08/19/2024 7:05 AM EDT 08/19/2024 8:02 AM EDT us Yuri Saunders MD LAB BLOOD ORDERABLES Final Resul t Performing Organization Address [facility] de Phone Number [facility] [address] [place] [address], [place] [phone] * Hemoglobin A1c (08/19/2024 7:05 AM EDT) Hemoglobin A1C 6.3 <6.5 % LAB CHEMISTRY METHOD 08/19/2024 1:56 PM EDT [facility] Mean Bld Glu Estim. 134 mg/dL LAB CHEMISTRY METHOD 08/19/2024 1:56 PM EDT [facility] Blood Venous blood specimen / Unknown 08/19/2024 7:05 AM EDT 08/19/2024 8:02 AM EDT us Yuri Saunders MD LAB BLOOD ORDERABLES Final Resul t Performing Organization Address [facility] de Phone Number [facility] [address] [place] [address], [place] [phone] * Thyroxine free (08/19/2024 7:05 AM EDT) Free T4 1.16 0.70 - 1.80 ng/dL LAB CHEMISTRY METHOD 08/19/2024 10:16 AM EDT [facility] Blood Venous blood specimen / Unknown 08/19/2024 7:05 AM EDT 08/19/2024 8:02 AM EDT us Yuri Saunders MD LAB BLOOD ORDERABLES Final Resul t Performing Organization Address [facility] Co de Phone Number [facility] [address] [place] [address], [place] [phone] * Cortisol (08/19/2024 7:05 AM EDT) Cortisol 9.2 mcg/dL LAB CHEMISTRY METHOD 08/19/2024 10:16 AM EDT [facility] Blood Venous blood specimen / Unknown 08/19/2024 7:05 AM EDT 08/19/2024 8:02 AM EDT Narrative [facility] - 08/19/2024 10:16 AM EDT CORTISOL REFERENCE RANGE 8 AM SPEC: 5.0-23.0 mcg/dL 4 PM SPEC: 3.0-16.0 mcg/dL 8 PM SPEC: <5.0 mcg/dL us Yuri Saunders MD LAB BLOOD ORDERABLES Final Resul t Performing Organization Address [facility] de Phone Number [facility] [address] [place] [address], [place] [phone] * Ammonia (08/19/2024 7:05 AM EDT) Ammonia 35 11 - 35 mcmol/L LAB CHEMISTRY METHOD 08/19/2024 8:27 AM EDT [facility] Blood Venous blood specimen / Unknown 08/19/2024 7:05 AM EDT 08/19/2024 8:02 AM EDT us Yuri Saunders MD LAB BLOOD ORDERABLES Final Resul t Performing Organization Address [facility]/ZIP Co de Phone Number [facility] [address] [place] [address], [place] [phone] * Lipid panel with reflex to direct LDL (08/19/2024 7:05 AM EDT) Cholesterol 131 0 - 200 mg/dL LAB CHEMISTRY METHOD 08/19/2024 8:50 AM EDT [facility] Triglycerides 35 0 - 150 mg/dL LAB CHEMISTRY METHOD 08/19/2024 8:50 AM EDT [facility] HDL 57 >=40 mg/dL LAB CHEMISTRY METHOD 08/19/2024 8:50 AM T [facility] LDL Calculated 67 0 - 100 mg/dL LAB CHEMISTRY METHOD 08/19/2024 8:50 AM [facility] VLDL Cholesterol Chris 7 mg/dL LAB CHEMISTRY METHOD 08/19/2024 8:50 AM T [facility] Non HDL Chol. (LDL+VLDL) 74 <145 mg/dL LAB CHEMISTRY METHOD 08/19/2024 8:50 AM [facility] Chol/HDL Ratio 2.3 0.0 - 4.4 LAB CHEMISTRY METHOD 08/19/2024 8:50 AM [facility] Blood Venous blood specimen / Unknown 08/19/2024 7:05 AM EDT 08/19/2024 8:02 AM EDT us Yuri Saunders MD LAB BLOOD ORDERABLES Final Resul t [facility] [address] [place] [address], [place] [phone] * (ABNORMAL) Comprehensive metabolic panel (08/19/2024 7:05 AM EDT) Sodium 139 133 - 145 mmol/L LAB CHEMISTRY METHOD 08/19/2024 8:33 AM [facility] Potassium 4.5 3.5 - 5.5 mmol/L LAB CHEMISTRY METHOD 08/19/2024 8:33 AM [facility] Chloride 105 96 - 110 mmol/L LAB CHEMISTRY METHOD 08/19/2024 8:33 AM [facility] CO2 31 21 - 32 mmol/L LAB CHEMISTRY METHOD 08/19/2024 8:33 AM [facility] Anion Gap 3 3 - 11 LAB CHEMISTRY METHOD 08/19/2024 8:33 AM [facility] Glucose 83 70 - 100 mg/dL LAB CHEMISTRY METHOD 08/19/2024 8:33 AM [facility] BUN 12 5 - 25 mg/dL LAB CHEMISTRY METHOD 08/19/2024 8:33 AM [facility] Creatinine 0.49(L) 0.70 - 1.30 mg/dL LAB CHEMISTRY METHOD 08/19/2024 8:33 AM [facility] eGFR 116 >=60 mL/min/1. 73m2 LAB CHEMISTRY METHOD 08/19/2024 8:33 AM [facility] Comment:Calculation based on the Chronic Kidney Disease Epidemiology Collaboration (CKD-EPI) equation refit without adjustment for race. BUN/Creatinine Ratio 24.5 LAB CHEMISTRY METHOD 08/19/2024 8:33 AM [facility] Calcium 9.0 8.5 - 10.5 mg/dL LAB CHEMISTRY METHOD 08/19/2024 8:33 AM [facility] AST (SGOT) 26 10 - 42 unit/L LAB CHEMISTRY METHOD 08/19/2024 8:33 AM [facility] ALT (SGPT) 35 10 - 60 unit/L LAB CHEMISTRY METHOD 08/19/2024 8:33 AM [facility] Alkaline Phosphatase 164(H) 42 - 121 unit/L LAB CHEMISTRY METHOD 08/19/2024 8:33 AM [facility] Total Protein 6.8 6.0 - 8.0 g/dL LAB CHEMISTRY METHOD 08/19/2024 8:33 AM [facility] Albumin 2.7(L) 3.2 - 5.0 g/dL LAB CHEMISTRY METHOD 08/19/2024 8:33 AM [facility] Total Bilirubin 0.2 0.0 - 1.4 mg/dL LAB CHEMISTRY METHOD 08/19/2024 8:33 AM [facility] Blood Venous blood specimen / Unknown 08/19/2024 7:05 AM EDT 08/19/2024 8:02 AM EDT Yuri Saunders MD LAB BLOOD ORDERABLES Final Resul t [facility] ([facility] [address] [place] [address], documented in this encounter Visit Diagnoses Diagnosis Type 2 diabetes mellitus with foot ulcer (CODE) (CMS/HCC V24, [facility] V28) Essential (primary) hypertension Unspecified essential hypertension Hyperlipidemia, unspecified documented in this encounter Care Teams Plumbing Assembler Installer Relationship Specialty Start Date End Date Yuri Saunders MD [address] [place] [address] Dr [address] [place], [place] PCP - General Internal Medicine 08/06/24 documented as of this encounter
--- OUTSIDE RECORDS SUMMARY | 2025-04-22 18:47 | XMS_ITS | Clinical Summary ---
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 02/19/2025 Lab Requisition [facility] [address] [place] [address] Yuri Saunders MD Type 2 [...] DIFFERENTIAL Routine 02/20/2025 7:00 AM EDT Other detention (current) drug therapy THYROID STIMULATING HORMONE Routine 02/20/2025 7:00 AM EDT Other detention (current) drug therapy HEMOGLOBIN A1C Routine 02/20/2025 7:00 AM EDT Other detention (current) drug therapy THYROXINE FREE Routine 02/20/2025 7:00 AM EDT Other termite control technician (current) drug therapy CBC AND DIFFERENTIAL Routine 02/20/2025 7:00 AM EDT Other detention (current) drug therapy AMMONIA Routine 02/20/2025 7:00 AM EDT Other detention (current) drug therapy COMPREHENSIVE METABOLIC PANEL Routine 02/20/2025 7:00 AM EDT Other detention (current) drug therapy LIPID PANEL WITH REFLEX TO DIRECT LDL Routine 08/19/2024 7:05 AM EDT Type 2 diabetes mellitus with foot ulcer (CODE) ([facility] V24, [facility] V28) Essential (primary) hypertension Hyperlipidemia, unspecified from Last 3 Months or Most Recently Relevant to Health Maintenance Results * (ABNORMAL) CBC auto differential (02/20/2025 7:00 AM EDT) [facility] WBC 8.3 4.8 - 10.8 K/mcL LAB HEMETOLOGY METHOD 02/20/2025 8:00 AM [facility] RBC 4.00(L) 4.50 - 5.50 M/mcL LAB HEMETOLOGY METHOD 02/20/2025 8:00 AM [facility] Hemoglobin 10.8(L) 13.5 - 17.5 g/dL LAB HEMETOLOGY METHOD 02/20/2025 8:00 AM [facility] Hematocrit 33.7(L) 42.0 - 54.0 % LAB HEMETOLOGY METHOD 02/20/2025 8:00 AM [facility] MCV 84.0 79.0 - 98.0 FL LAB HEMETOLOGY METHOD 02/20/2025 8:00 AM [facility] MCH 26.9(L) 27.0 - 32.0 pcg LAB HEMETOLOGY METHOD 02/20/2025 8:00 AM [facility] MCHC 32.0 32.0 - 37.0 g/dL LAB HEMETOLOGY METHOD 02/20/2025 8:00 AM [facility] RDW 15.1(H) 11.0 - 15.0 % LAB HEMETOLOGY METHOD 02/20/2025 8:00 AM [facility] Platelets 289 130 - 400 K/mcL LAB HEMETOLOGY METHOD 02/20/2025 8:00 AM [facility] MPV 9.0 7.0 - 11.0 FL LAB HEMETOLOGY METHOD 02/20/2025 8:00 AM [facility] NRBC 0.0 <1.0 % LAB HEMETOLOGY METHOD 02/20/2025 8:00 AM [facility] NRBC Absolute 0.00 <0.10 K/mcL LAB HEMETOLOGY METHOD 02/20/2025 8:00 AM [facility] Neutrophils Relative 64.8 % LAB HEMETOLOGY METHOD 02/20/2025 8:00 AM [facility] Lymphocytes Relative 17.8 % LAB HEMETOLOGY METHOD 02/20/2025 8:00 AM [facility] Monocytes Relative 14.4 % LAB HEMETOLOGY METHOD 02/20/2025 8:00 AM [facility] Eosinophils Relative 2.3 % LAB HEMETOLOGY METHOD 02/20/2025 8:00 AM [facility] Basophils Relative 0.5 % LAB HEMETOLOGY METHOD 02/20/2025 8:00 AM [facility] Immature Granulocytes Relative 0.2 % LAB HEMETOLOGY METHOD 02/20/2025 8:00 AM [facility] Neutrophils Absolute 5.39 1.50 - 7.00 K/mcL LAB HEMETOLOGY METHOD 02/20/2025 8:00 AM [facility] Lymphocytes Absolute 1.48 1.00 - 5.00 K/mcL LAB HEMETOLOGY METHOD 02/20/2025 8:00 AM [facility] Monocytes Absolute 1.20(H) 0.20 - 1.00 K/mcL LAB HEMETOLOGY METHOD 02/20/2025 8:00 AM EDT [facility] Eosinophils Absolute 0.19 0.00 - 0.50 K/[facility] LAB HEMETOLOGY METHOD 02/20/2025 8:00 AM EDT [facility] Basophils Absolute 0.04 0.00 - 0.20 K/[facility] LAB HEMETOLOGY METHOD 02/20/2025 8:00 AM EDT [facility] Immature Granulocytes Absolute 0.02 0.00 - 0.03 K/mcL LAB HEMETOLOGY METHOD 02/20/2025 8:00 AM EDT [facility] Blood Venous blood specimen / Unknown 02/20/2025 7:00 AM EDT 02/20/2025 7:41 AM EDT us Yuri Saunders MD LAB BLOOD ORDERABLES Final Resul t Performing Organization Address City/[facility]/ZIP Co de Phone Number [facility] [address] [place] [address], [place] [phone] * Thyroid stimulating hormone (02/20/2025 7:00 AM EDT) TSH 0.96 0.40 - 4.00 mcIU/mL LAB CHEMISTRY METHOD 02/20/2025 9:49 AM EDT [facility] Blood Venous blood specimen / Unknown 02/20/2025 7:00 AM EDT 02/20/2025 7:41 AM EDT us Yuri Saunders MD LAB BLOOD ORDERABLES Final Resul t [facility] [address] [place] [address], [place] [phone] * Thyroxine free (02/20/2025 7:00 AM EDT) Free T4 1.29 0.70 - 1.80 ng/dL LAB CHEMISTRY METHOD 02/20/2025 9:49 AM EDT [facility] Blood Venous blood specimen / Unknown 02/20/2025 7:00 AM EDT 02/20/2025 7:41 AM EDT us Yuri Saunders MD LAB BLOOD ORDERABLES Final Resul t Performing Organization Address [facility] Co de Phone Number [facility] [address] [place] [address], [place] [phone] * Hemoglobin A1c (02/20/2025 7:00 AM EDT) [facility] Hemoglobin A1C 6.2 <6.5 % LAB CHEMISTRY METHOD 02/20/2025 9:32 AM EDT [facility] Mean Bld Glu Estim. 131 mg/dL LAB CHEMISTRY METHOD 02/20/2025 9:32 AM EDT [facility] Blood Venous blood specimen / Unknown 02/20/2025 7:00 AM EDT 02/20/2025 7:41 AM EDT us Yuri Saunders MD LAB BLOOD ORDERABLES Final Resul t Performing Organization Address [facility] de Phone Number [facility] [address] [place] [address], [place] [phone] * (ABNORMAL) Ammonia (02/20/2025 7:00 AM EDT) [facility] Ammonia 47(H) 11 - 35 mcmol/L LAB CHEMISTRY METHOD 02/20/2025 8:14 AM EDT [facility] Blood Venous blood specimen / Unknown 02/20/2025 7:00 AM EDT 02/20/2025 7:41 AM EDT us Yuri Saunders MD LAB BLOOD ORDERABLES Final Resul t Performing Organization Address City/[facility] de Phone Number [facility] [address] [place] [address], [place] [phone] * (ABNORMAL) Comprehensive metabolic panel (02/20/2025 7:00 AM EDT) Sodium 138 133 - 145 mmol/L LAB CHEMISTRY METHOD 02/20/2025 8:25 AM T [facility] Potassium 4.1 3.5 - 5.5 mmol/L LAB CHEMISTRY METHOD 02/20/2025 8:25 AM [facility] Chloride 103 96 - 110 mmol/L LAB CHEMISTRY METHOD 02/20/2025 8:25 AM [facility] CO2 33(H) 21 - 32 mmol/L LAB CHEMISTRY METHOD 02/20/2025 8:25 AM [facility] Anion Gap 2(L) 3 - 11 LAB CHEMISTRY METHOD 02/20/2025 8:25 AM [facility] Glucose 87 70 - 100 mg/dL LAB CHEMISTRY METHOD 02/20/2025 8:25 AM [facility] BUN 14 5 - 25 mg/dL LAB CHEMISTRY METHOD 02/20/2025 8:25 AM [facility] Creatinine 0.56(L) 0.70 - 1.30 mg/dL LAB CHEMISTRY METHOD 02/20/2025 8:25 AM [facility] eGFR 111 >=60 mL/min/1. 73m2 LAB CHEMISTRY METHOD 02/20/2025 8:25 AM [facility] Comment:Calculation based on the Chronic Kidney Disease Epidemiology Collaboration (CKD-EPI) equation refit without adjustment for race. BUN/Creatinine Ratio 25.0 LAB CHEMISTRY METHOD 02/20/2025 8:25 AM [facility] Calcium 8.7 8.5 - 10.5 mg/dL LAB CHEMISTRY METHOD 02/20/2025 8:25 AM [facility] AST (SGOT) 40 10 - 42 unit/L LAB CHEMISTRY METHOD 02/20/2025 8:25 AM EDT [facility] ALT (SGPT) 49 10 - 60 unit/L LAB CHEMISTRY METHOD 02/20/2025 8:25 AM EDT [facility] Alkaline Phosphatase 196(H) 42 - 121 unit/L LAB CHEMISTRY METHOD 02/20/2025 8:25 AM EDT [facility] Total Protein 6.6 6.0 - 8.0 g/dL LAB CHEMISTRY METHOD 02/20/2025 8:25 AM T [facility] Albumin 2.6(L) 3.2 - 5.0 g/dL LAB CHEMISTRY METHOD 02/20/2025 8:25 AM [facility] Total Bilirubin 0.3 0.0 - 1.4 mg/dL LAB CHEMISTRY METHOD 02/20/2025 8:25 AM T [facility] Blood Venous blood specimen / Unknown 02/20/2025 7:00 AM EDT 02/20/2025 7:41 AM EDT us Yuri Saunders MD LAB BLOOD ORDERABLES Final Resul t [facility] [address] [place] [address], [place] [phone] * Lipid panel with reflex to direct LDL (08/19/2024 7:05 AM EDT) Cholesterol 131 0 - 200 mg/dL LAB CHEMISTRY METHOD 08/19/2024 8:50 AM EDT [facility] Triglycerides 35 0 - 150 mg/dL LAB CHEMISTRY METHOD 08/19/2024 8:50 AM EDT [facility] HDL 57 >=40 mg/dL LAB CHEMISTRY METHOD 08/19/2024 8:50 AM EDT [facility] LDL Calculated 67 0 - 100 mg/dL LAB CHEMISTRY METHOD 08/19/2024 8:50 AM EDT [facility] VLDL Cholesterol Chris 7 mg/dL LAB CHEMISTRY METHOD 08/19/2024 8:50 AM EDT [facility] Non HDL Chol. (LDL+VLDL) 74 <145 mg/dL LAB CHEMISTRY METHOD 08/19/2024 8:50 AM EDT [facility] Chol/HDL Ratio 2.3 0.0 - 4.4 LAB CHEMISTRY METHOD 08/19/2024 8:50 AM EDT [facility] Blood Venous blood specimen / Unknown 08/19/2024 7:05 AM EDT 08/19/2024 8:02 AM EDT us Yuri Saunders MD LAB BLOOD ORDERABLES Final Resul t [facility] [address] [place] [address], from Last 3 Months or Most Recently Relevant to Health Maintenance Insurance MEDICAID - [place] Care Teams Php Wordpress Developer Relationship Specialty Start Date End Date Yuri Saunders MD [address] [place] [address] Dr [address] [place], [place] PCP - General Internal Medicine 08/06/24
--- OUTSIDE RECORDS SUMMARY | 2025-04-22 18:47 | XMS_ITS | Encounter Summary ---
Author Organization [facility] Address [address] [place] [address] Care Team Providers Care Quality Control Industrial Engineer Name Role Phone Yuri Saunders MD Primary Care Provider [phone] Encounter Details Date Type Department Care Team (Late st Contact Info) Description 07/03/2024 Lab Requisition [facility] - Main Lab [address] [place] [address] Yuri Saunders MD [address] [place] [address] Dr [address] [place], [place] Schizophrenia, unspecified (CMS/HCC V24, CMS/HCC V28) [...] PM EST) WBC 7.2 4.8 - 10.8 K/[facility] LAB HEMETOLOGY METHOD 07/03/2024 7:28 PM EST [facility] RBC 4.40(L) 4.50 - 5.50 M/[facility] LAB HEMETOLOGY METHOD 07/03/2024 7:28 PM EST [facility] Hemoglobin 11.2(L) 13.5 - 17.5 g/dL LAB HEMETOLOGY METHOD 07/03/2024 7:28 PM [facility] Hematocrit 36.0(L) 42.0 - 54.0 % LAB HEMETOLOGY METHOD 07/03/2024 7:28 PM [facility] MCV 82.6 79.0 - 98.0 FL LAB HEMETOLOGY METHOD 07/03/2024 7:28 PM [facility] MCH 25.7(L) 27.0 - 32.0 pcg LAB HEMETOLOGY METHOD 07/03/2024 7:28 PM [facility] MCHC 31.1(L) 32.0 - 37.0 g/dL LAB HEMETOLOGY METHOD 07/03/2024 7:28 PM [facility] RDW 17.2(H) 11.0 - 15.0 % LAB HEMETOLOGY METHOD 07/03/2024 7:28 PM [facility] Platelets 363 130 - 400 K/mcL LAB HEMETOLOGY METHOD 07/03/2024 7:28 PM [facility] MPV 8.9 7.0 - 11.0 FL LAB HEMETOLOGY METHOD 07/03/2024 7:28 PM [facility] NRBC 0.0 <1.0 % LAB HEMETOLOGY METHOD 07/03/2024 7:28 PM [facility] NRBC Absolute 0.00 <0.10 K/mcL LAB HEMETOLOGY METHOD 07/03/2024 7:28 PM [facility] Neutrophils Relative 67.5 % LAB HEMETOLOGY METHOD 07/03/2024 7:28 PM [facility] Lymphocytes Relative 21.3 % LAB HEMETOLOGY METHOD 07/03/2024 7:28 PM [facility] Monocytes Relative 9.4 % LAB HEMETOLOGY METHOD 07/03/2024 7:28 PM EST [facility] Eosinophils Relative 1.1 % LAB HEMETOLOGY METHOD 07/03/2024 7:28 PM [facility] Basophils Relative 0.4 % LAB HEMETOLOGY METHOD 07/03/2024 7:28 PM [facility] Immature Granulocytes Relative 0.3 % LAB HEMETOLOGY METHOD 07/03/2024 7:28 PM [facility] Neutrophils Absolute 4.87 1.50 - 7.00 K/mcL LAB HEMETOLOGY METHOD 07/03/2024 7:28 PM [facility] Lymphocytes Absolute 1.54 1.00 - 5.00 K/mcL LAB HEMETOLOGY METHOD 07/03/2024 7:28 PM [facility] Monocytes Absolute 0.68 0.20 - 1.00 K/mcL LAB HEMETOLOGY METHOD 07/03/2024 7:28 PM [facility] Eosinophils Absolute 0.08 0.00 - 0.50 K/mcL LAB HEMETOLOGY METHOD 07/03/2024 7:28 PM [facility] Basophils Absolute 0.03 0.00 - 0.20 K/mcL LAB HEMETOLOGY METHOD 07/03/2024 7:28 PM [facility] Immature Granulocytes Absolute 0.02 0.00 - 0.03 K/mcL LAB HEMETOLOGY METHOD 07/03/2024 7:28 PM [facility] Blood Venous blood specimen / Unknown 07/03/2024 6:35 PM EST 07/03/2024 7:06 PM EST Yuri Saundesr MD LAB BLOOD ORDERABLES Final Resul t [facility] [address] [place] [address], documented in this encounter Visit Diagnoses Diagnosis Schizophrenia, unspecified (CMS/HCC V24, CMS/HCC V28) documented in this encounter Care Teams Quality Control Industrial Engineer Relationship Specialty Start Date End Date Yuri Saunders MD [address] [place] [address] Dr [address] MELODIE Wolf PCP - General Internal Medicine 08/06/24 documented as of this encounter
--- OUTSIDE RECORDS SUMMARY | 2025-04-22 18:47 | XMS_ITS | Encounter Summary ---
Author Organization [facility] Address [address] [place] [address] Care Team Providers Care Rotoformer Backtender Name Role Phone Yuri Saunders MD Primary Care Provider [phone] Encounter Details Date Type Department Care Team (Late st Contact Info) Description 08/02/2024 Lab Requisition [facility] - Main Lab [address] [facility] [place] [address] Yuri Saunders MD [address] [place] [address] Dr [address] [place], [place] Other prison (current) drug therapy Social History Tobacco Use [...] GOLD Routine 08/02/2024 6:15 AM EDT Other prison (current) drug therapy HALOPERIDOL LEVEL Routine 08/02/2024 6:1 5 AM EDT 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 and 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 (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 08/02/2024 8:01 AM [facility] Comment:Auto resulted. Blood Venous blood specimen / Unknown 08/02/2024 6:15 AM EDT 08/02/2024 6:47 AM EDT Yuri Saunders MD LAB BLOOD ORDERABLES Final Resul t [facility] [address] [place] [address], * (ABNORMAL) Complete blood count (08/02/2024 6:15 AM EDT) Pathologist [facility] WBC 6.2 4.8 - 10.8 K/mcL LAB HEMETOLOGY METHOD 08/02/2024 7:04 AM [facility] RBC 3.90(L) 4.50 - 5.50 M/mcL LAB HEMETOLOGY METHOD 08/02/2024 7:04 AM [facility] Hemoglobin 10.1(L) 13.5 - 17.5 g/dL LAB HEMETOLOGY METHOD 08/02/2024 7:04 AM [facility] Hematocrit 32.5(L) 42.0 - 54.0 % LAB HEMETOLOGY METHOD 08/02/2024 7:04 AM [facility] MCV 82.9 79.0 - 98.0 FL LAB HEMETOLOGY METHOD 08/02/2024 7:04 AM [facility] MCH 25.8(L) 27.0 - 32.0 pcg LAB HEMETOLOGY METHOD 08/02/2024 7:04 AM [facility] MCHC 31.1(L) 32.0 - 37.0 g/dL LAB HEMETOLOGY METHOD 08/02/2024 7:04 AM EDT [facility] RDW 16.9(H) 11.0 - 15.0 % LAB HEMETOLOGY METHOD 08/02/2024 7:04 AM EDT [facility] Platelets 277 130 - 400 K/mcL LAB HEMETOLOGY METHOD 08/02/2024 7:04 AM EDT [facility] MPV 9.0 7.0 - 11.0 FL LAB HEMETOLOGY METHOD 08/02/2024 7:04 AM EDT [facility] NRBC 0.0 <1.0 % LAB HEMETOLOGY METHOD 08/02/2024 7:04 AM EDT [facility] NRBC Absolute 0.00 <0.10 K/mcL LAB HEMETOLOGY METHOD 08/02/2024 7:04 AM EDT [facility] Blood Venous blood specimen / Unknown 08/02/2024 6:15 AM EDT 08/02/2024 6:47 AM EDT Yuri Saunders MD LAB BLOOD ORDERABLES Final Resul t [facility] [address] [place] [address], * (ABNORMAL) Oxcarbazepine level (08/02/2024 6:15 AM EDT) Oxcarbazepine 5.2(L) 10 - 35 ug/mL 08/05/2024 12:30 PM EDT [facility] Comment: If applicable, any drug confirmation testing reported here was developed and the performance characteristics determined by [facility]. This confirmation testing has not been cleared or approved by the FDA. The laboratory is regulated under CLIA as qualified to perform high-complexity testing. This test is used for patient testing purposes. It should not be regarded as investigational or for research. Test performed at [facility], [address] , [place] [address] Alanna Escalante MD, PhD - Skull Splitter Blood Venous blood specimen / Unknown 08/02/2024 6:15 AM EDT 08/02/2024 6:47 AM EDT us Yuri Saunders MD LAB BLOOD ORDERABLES Final Resul t Performing Organization Address [facility]/ZIP Co de Phone Number [facility] [address] [place] [address] * (ABNORMAL) Haloperidol level (08/02/2024 6:15 AM EDT) Haloperidol 16(H) 5 - 15 ng/mL 08/14/2024 4:21 PM EDT [facility] Comment: This test was developed and its analytical performance characteristics have been determined by [facility]. It has not been cleared or approved by the FDA. This assay has been validated pursuant to the CLIA regulations and is used for clinical purposes. TEST PERFORMED AT: [facility] [address] [address] GOLDIE DAS MD Blood Venous blood specimen / Unknown 08/02/2024 6:15 AM EDT 08/02/2024 6:47 AM EDT us Yuri Saunders MD LAB BLOOD ORDERABLES Final Resul t Performing Organization Address [facility] de Phone Number [facility] [address] [place] [address] * (ABNORMAL) Ammonia (08/02/2024 6:15 AM EDT) Ammonia 50(H) 11 - 35 mcmol/L LAB CHEMISTRY METHOD 08/02/2024 7:19 AM EDT [facility] Blood Venous blood specimen / Unknown 08/02/2024 6:15 AM EDT 08/02/2024 6:47 AM EDT us Yuri Saunders MD LAB BLOOD ORDERABLES Final Resul t Performing Organization Address City/[facility]/ZIP Co de Phone Number [facility] [address] [place] [address], * (ABNORMAL) Comprehensive metabolic panel (08/02/2024 6:15 AM EDT) Sodium 137 133 - 145 mmol/L LAB CHEMISTRY METHOD 08/02/2024 8:26 AM [facility] Potassium 4.4 3.5 - 5.5 mmol/L LAB CHEMISTRY METHOD 08/02/2024 8:26 AM [facility] Comment:Hemolysis present Chloride 104 96 - 110 mmol/L LAB CHEMISTRY METHOD 08/02/2024 8:26 AM [facility] CO2 29 21 - 32 mmol/L LAB CHEMISTRY METHOD 08/02/2024 8:26 AM [facility] Anion Gap 4 3 - 11 LAB CHEMISTRY METHOD 08/02/2024 8:26 AM [facility] Glucose 78 70 - 100 mg/dL LAB CHEMISTRY METHOD 08/02/2024 8:26 AM [facility] BUN 17 5 - 25 mg/dL LAB CHEMISTRY METHOD 08/02/2024 8:26 AM [facility] Creatinine 0.46(L) 0.70 - 1.30 mg/dL LAB CHEMISTRY METHOD 08/02/2024 8:26 AM [facility] eGFR 118 >=60 mL/min/1. 73m2 LAB CHEMISTRY METHOD 08/02/2024 8:26 AM [facility] Comment:Calculation based on the Chronic Kidney Disease Epidemiology Collaboration (CKD-EPI) equation refit without adjustment for race. BUN/Creatinine Ratio 37.0 LAB CHEMISTRY METHOD 08/02/2024 8:26 AM [facility] Calcium 8.6 8.5 - 10.5 mg/dL LAB CHEMISTRY METHOD 08/02/2024 8:26 AM [facility] AST (SGOT) 26 10 - 42 unit/L LAB CHEMISTRY METHOD 08/02/2024 8:26 AM T [facility] Comment:Hemolysis present ALT (SGPT) 27 10 - 60 unit/L LAB CHEMISTRY METHOD 08/02/2024 8:26 AM T [facility] Alkaline Phosphatase 171(H) 42 - 121 unit/L LAB CHEMISTRY METHOD 08/02/2024 8:26 AM T [facility] Total Protein 6.8 6.0 - 8.0 g/dL LAB CHEMISTRY METHOD 08/02/2024 8:26 AM T [facility] Albumin 2.8(L) 3.2 - 5.0 g/dL LAB CHEMISTRY METHOD 08/02/2024 8:26 AM [facility] Total Bilirubin 0.3 0.0 - 1.4 mg/dL LAB CHEMISTRY METHOD 08/02/2024 8:26 AM [facility] Blood Venous blood specimen / Unknown 08/02/2024 6:15 AM EDT 08/02/2024 6:47 AM EDT us Yuri Saunders MD LAB BLOOD ORDERABLES Final Resul t [facility] [address] [place] [address], documented in this encounter Visit Diagnoses Diagnosis 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 and repeater (current) drug therapy documented in this encounter Care Teams Rotoformer Backtender Relationship Specialty Start Date End Date Yuri Saunders MD [address] [place], [place] PCP - General Internal Medicine 08/06/24 documented as of this encounter
--- OUTSIDE RECORDS SUMMARY | 2025-04-22 18:47 | XMS_ITS | Encounter Summary ---
Author Organization [facility] Address [address] [place] [address] Care Team Providers Care Plate Conditioner Name Role Phone Yuri Saunders MD Primary Care Provider [phone] Encounter Details Date Type Department Care Team (Late st Contact Info) Description 02/19/2025 Lab Requisition [facility] - Main Lab 299 [facility] [place] [address] Yuri Saunders MD [address] [place] [address] [address] [place], [place] Type 2 diabetes mellitus with foot [...] metabolism documented in this encounter Care Teams Plate Conditioner Relationship Specialty Start Date End Date Yuri Saunders MD [address] [place] [address] Dr [address] [place], [place] PCP - General Internal Medicine 08/06/24 documented as of this encounter
--- OUTSIDE RECORDS SUMMARY | 2025-04-22 18:47 | XMS_ITS | Encounter Summary ---
Author Organization [employer] [place] Address [address] [place] [address] Care Team Providers Care Creasing And Cutting Press Feeder Name Role Phone Yuri Saunders MD Primary Care Provider [phone] Encounter Details Date Type Department Care Team (Late st Contact Info) Description 11/18/2024 Lab Requisition [facility] - Main Lab [address] [facility] [place] [address] Yuri Saunders MD [address] [place] [address] Dr [address] [place], [place] Type 2 diabetes mellitus with foot [...] LAB CHEMISTRY METHOD 11/18/2024 6:59 PM EDT [facility] Blood Venous blood specimen / Unknown 11/18/2024 11/18/2024 6:35 PM EDT us Yuri Saunders MD LAB BLOOD ORDERABLES Final Resul t Performing Organization Address [facility]/ZIP Co de Phone Number [facility] [address] [place] [address], [place] [phone] * Hemoglobin A1c (11/18/2024 12:00 AM EDT) Pathologist [facility] Hemoglobin A1C 6.2 <6.5 % LAB CHEMISTRY METHOD 11/19/2024 1:24 PM EDT [facility] Mean Bld Glu Estim. 131 mg/dL LAB CHEMISTRY METHOD 11/19/2024 1:24 PM EDT [facility] Blood Venous blood specimen / Unknown 11/18/2024 11/18/2024 6:35 PM EDT us Yuri Saunders MD LAB BLOOD ORDERABLES Final Resul t Performing Organization Address City/[facility]/ZIP Co de Phone Number [facility] [address] [place] [address], [place] [phone] * (ABNORMAL) Comprehensive metabolic panel (11/18/2024 12:00 AM EDT) Sodium 139 133 - 145 mmol/L LAB CHEMISTRY METHOD 11/18/2024 8:41 PM EDT [facility] Potassium 4.8 3.5 - 5.5 mmol/L LAB CHEMISTRY METHOD 11/18/2024 8:41 PM EDT [facility] Chloride 104 96 - 110 mmol/L LAB CHEMISTRY METHOD 11/18/2024 8:41 PM [facility] CO2 31 21 - 32 mmol/L LAB CHEMISTRY METHOD 11/18/2024 8:41 PM [facility] Anion Gap 4 3 - 11 LAB CHEMISTRY METHOD 11/18/2024 8:41 PM [facility] Glucose 72 70 - 100 mg/dL LAB CHEMISTRY METHOD 11/18/2024 8:41 PM [facility] BUN 12 5 - 25 mg/dL LAB CHEMISTRY METHOD 11/18/2024 8:41 PM [facility] Creatinine 0.50(L) 0.70 - 1.30 mg/dL LAB CHEMISTRY METHOD 11/18/2024 8:41 PM [facility] eGFR 115 >=60 mL/min/1. 73m2 LAB CHEMISTRY METHOD 11/18/2024 8:41 PM [facility] Comment:Calculation based on the Chronic Kidney Disease Epidemiology Collaboration (CKD-EPI) equation refit without adjustment for race. BUN/Creatinine Ratio 24.0 LAB CHEMISTRY METHOD 11/18/2024 8:41 PM [facility] Calcium 8.6 8.5 - 10.5 mg/dL LAB CHEMISTRY METHOD 11/18/2024 8:41 PM [facility] AST (SGOT) 29 10 - 42 unit/L LAB CHEMISTRY METHOD 11/18/2024 8:41 PM [facility] ALT (SGPT) 37 10 - 60 unit/L LAB CHEMISTRY METHOD 11/18/2024 8:41 PM [facility] Alkaline Phosphatase 182(H) 42 - 121 unit/L LAB CHEMISTRY METHOD 11/18/2024 8:41 PM [facility] Total Protein 7.1 6.0 - 8.0 g/dL LAB CHEMISTRY METHOD 11/18/2024 8:41 PM EDT [facility] Albumin 3.0(L) 3.2 - 5.0 g/dL LAB CHEMISTRY METHOD 11/18/2024 8:41 PM EDT [facility] Total Bilirubin 0.3 0.0 - 1.4 mg/dL LAB CHEMISTRY METHOD 11/18/2024 8:41 PM EDT [facility] Blood Venous blood specimen / Unknown 11/18/2024 11/18/2024 6:35 PM EDT us Yuri Saunders MD LAB BLOOD ORDERABLES Final Resul t [facility] [address] [place] [address], documented in this encounter Visit Diagnoses Diagnosis Type 2 diabetes mellitus with foot ulcer (CODE) (CMS/HCC V24, CMS/[facility] V28) Disorder of urea cycle metabolism, unspecified ([facility] V24) documented in this encounter Care Teams Creasing And Cutting Press Feeder Relationship Specialty Start Date End Date Yuri Saunders MD [address] [place], [place] PCP - General Internal Medicine 08/06/24 documented as of this encounter
--- OUTSIDE RECORDS SUMMARY | 2025-04-22 18:47 | XMS_ITS | Encounter Summary ---
Author Organization [employer] Address [address] [place] [address] Care Team Providers Care Table Worker Packager Name Role Phone Yuri Saunders MD Primary Care Provider [phone] Encounter Details Date Type Department Care Team (Late st Contact Info) Description 02/20/2025 Lab Requisition [facility] - Main Lab 299 [facility] [place] [address] Yuri Saunders MD [address] [place] [address] Dr [address] [place], [place] Other nursing home (current) drug therapy Social History Tobacco Use [...] DIFFERENTIAL Routine 02/20/2025 7:00 AM EDT Other nursing home (current) drug therapy CBC AND DIFFERENTIAL Routine 02/20/2025 7:00 AM EDT Other 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 (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) drug therapy THYROID STIMULATING HORMONE Routine 02/20/2025 7:00 AM EDT Other 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 (current) drug therapy THYROXINE FREE Routine 02/20/2025 7:00 AM EDT Other nursing home (current) drug therapy HEMOGLOBIN A1C Routine 02/20/2025 7:00 AM EDT Other nursing home (current) drug therapy AMMONIA Routine 02/20/2025 7:00 AM EDT Other 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 (current) drug therapy COMPREHENSIVE METABOLIC PANEL Routine 02/20/2025 7:00 AM EDT Other nursing home (current) drug therapy documented in this encounter Results * (ABNORMAL) CBC auto differential (02/20/2025 7:00 AM EDT) [facility] WBC 8.3 4.8 - 10.8 K/mcL LAB HEMETOLOGY METHOD 02/20/2025 8:00 AM [facility] RBC 4.00(L) 4.50 - 5.50 M/mcL LAB HEMETOLOGY METHOD 02/20/2025 8:00 AM [facility] Hemoglobin 10.8(L) 13.5 - 17.5 g/dL LAB HEMETOLOGY METHOD 02/20/2025 8:00 AM [facility] Hematocrit 33.7(L) 42.0 - 54.0 % LAB HEMETOLOGY METHOD 02/20/2025 8:00 AM [facility] MCV 84.0 79.0 - 98.0 FL LAB HEMETOLOGY METHOD 02/20/2025 8:00 AM [facility] MCH 26.9(L) 27.0 - 32.0 pcg LAB HEMETOLOGY METHOD 02/20/2025 8:00 AM [facility] MCHC 32.0 32.0 - 37.0 g/dL LAB HEMETOLOGY METHOD 02/20/2025 8:00 AM [facility] RDW 15.1(H) 11.0 - 15.0 % LAB HEMETOLOGY METHOD 02/20/2025 8:00 AM [facility] Platelets 289 130 - 400 K/mcL LAB HEMETOLOGY METHOD 02/20/2025 8:00 AM [facility] MPV 9.0 7.0 - 11.0 FL LAB HEMETOLOGY METHOD 02/20/2025 8:00 AM [facility] NRBC 0.0 <1.0 % LAB HEMETOLOGY METHOD 02/20/2025 8:00 AM [facility] NRBC Absolute 0.00 <0.10 K/mcL LAB HEMETOLOGY METHOD 02/20/2025 8:00 AM [facility] Neutrophils Relative 64.8 % LAB HEMETOLOGY METHOD 02/20/2025 8:00 AM [facility] Lymphocytes Relative 17.8 % LAB HEMETOLOGY METHOD 02/20/2025 8:00 AM [facility] Monocytes Relative 14.4 % LAB HEMETOLOGY METHOD 02/20/2025 8:00 AM [facility] Eosinophils Relative 2.3 % LAB HEMETOLOGY METHOD 02/20/2025 8:00 AM [facility] Basophils Relative 0.5 % LAB HEMETOLOGY METHOD 02/20/2025 8:00 AM [facility] Immature Granulocytes Relative 0.2 % LAB HEMETOLOGY METHOD 02/20/2025 8:00 AM [facility] Neutrophils Absolute 5.39 1.50 - 7.00 K/mcL LAB HEMETOLOGY METHOD 02/20/2025 8:00 AM [facility] Lymphocytes Absolute 1.48 1.00 - 5.00 K/mcL LAB HEMETOLOGY METHOD 02/20/2025 8:00 AM [facility] Monocytes Absolute 1.20(H) 0.20 - 1.00 K/mcL LAB HEMETOLOGY METHOD 02/20/2025 8:00 AM [facility] Eosinophils Absolute 0.19 0.00 - 0.50 K/mcL LAB HEMETOLOGY METHOD 02/20/2025 8:00 AM [facility] Basophils Absolute 0.04 0.00 - 0.20 K/mcL LAB HEMETOLOGY METHOD 02/20/2025 8:00 AM EDT [facility] Immature Granulocytes Absolute 0.02 0.00 - 0.03 K/mcL LAB HEMETOLOGY METHOD 02/20/2025 8:00 AM EDT [facility] Blood Venous blood specimen / Unknown 02/20/2025 7:00 AM EDT 02/20/2025 7:41 AM EDT us Yuri Saunders MD LAB BLOOD ORDERABLES Final Resul t Performing Organization Address [facility]/ZIP Co de Phone Number [facility] [address] [place] [address], [place] [phone] * Thyroid stimulating hormone (02/20/2025 7:00 AM EDT) TSH 0.96 0.40 - 4.00 mcIU/mL LAB CHEMISTRY METHOD 02/20/2025 9:49 AM EDT [facility] Blood Venous blood specimen / Unknown 02/20/2025 7:00 AM EDT 02/20/2025 7:41 AM EDT us Yuri Saunders MD LAB BLOOD ORDERABLES Final Resul t Performing Organization Address [facility]/ZIP Co de Phone Number [facility] [address] [place] [address], [place] [phone] * Hemoglobin A1c (02/20/2025 7:00 AM EDT) Hemoglobin A1C 6.2 <6.5 % LAB CHEMISTRY METHOD 02/20/2025 9:32 AM EDT [facility] Mean Bld Glu Estim. 131 mg/dL LAB CHEMISTRY METHOD 02/20/2025 9:32 AM EDT [facility] Blood Venous blood specimen / Unknown 02/20/2025 7:00 AM EDT 02/20/2025 7:41 AM EDT us Yuri Saunders MD LAB BLOOD ORDERABLES Final Resul t Performing Organization Address [facility] de Phone Number [facility] [address] [place] [address], [place] [phone] * Thyroxine free (02/20/2025 7:00 AM EDT) Free T4 1.29 0.70 - 1.80 ng/dL LAB CHEMISTRY METHOD 02/20/2025 9:49 AM EDT [facility] Blood Venous blood specimen / Unknown 02/20/2025 7:00 AM EDT 02/20/2025 7:41 AM EDT us Yuri Saunders MD LAB BLOOD ORDERABLES Final Resul t Performing Organization Address [facility] de Phone Number [facility] [address] [place] [address], [place] [phone] * (ABNORMAL) Ammonia (02/20/2025 7:00 AM EDT) Ammonia 47(H) 11 - 35 mcmol/L LAB CHEMISTRY METHOD 02/20/2025 8:14 AM EDT [facility] Blood Venous blood specimen / Unknown 02/20/2025 7:00 AM EDT 02/20/2025 7:41 AM EDT us Yuri Saunders MD LAB BLOOD ORDERABLES Final Resul t Performing Organization Address [facility] de Phone Number [facility] [address] [place] [address], [place] [phone] * (ABNORMAL) Comprehensive metabolic panel (02/20/2025 7:00 AM EDT) Sodium 138 133 - 145 mmol/L LAB CHEMISTRY METHOD 02/20/2025 8:25 AM EDT [facility] Potassium 4.1 3.5 - 5.5 mmol/L LAB CHEMISTRY METHOD 02/20/2025 8:25 AM [facility] Chloride 103 96 - 110 mmol/L LAB CHEMISTRY METHOD 02/20/2025 8:25 AM [facility] CO2 33(H) 21 - 32 mmol/L LAB CHEMISTRY METHOD 02/20/2025 8:25 AM [facility] Anion Gap 2(L) 3 - 11 LAB CHEMISTRY METHOD 02/20/2025 8:25 AM [facility] Glucose 87 70 - 100 mg/dL LAB CHEMISTRY METHOD 02/20/2025 8:25 AM [facility] BUN 14 5 - 25 mg/dL LAB CHEMISTRY METHOD 02/20/2025 8:25 AM [facility] Creatinine 0.56(L) 0.70 - 1.30 mg/dL LAB CHEMISTRY METHOD 02/20/2025 8:25 AM [facility] eGFR 111 >=60 mL/min/1. 73m2 LAB CHEMISTRY METHOD 02/20/2025 8:25 AM [facility] Comment:Calculation based on the Chronic Kidney Disease Epidemiology Collaboration (CKD-EPI) equation refit without adjustment for race. BUN/Creatinine Ratio 25.0 LAB CHEMISTRY METHOD 02/20/2025 8:25 AM [facility] Calcium 8.7 8.5 - 10.5 mg/dL LAB CHEMISTRY METHOD 02/20/2025 8:25 AM [facility] AST (SGOT) 40 10 - 42 unit/L LAB CHEMISTRY METHOD 02/20/2025 8:25 AM [facility] ALT (SGPT) 49 10 - 60 unit/L LAB CHEMISTRY METHOD 02/20/2025 8:25 AM [facility] Alkaline Phosphatase 196(H) 42 - 121 unit/L LAB CHEMISTRY METHOD 02/20/2025 8:25 AM [facility] Total Protein 6.6 6.0 - 8.0 g/dL LAB CHEMISTRY METHOD 02/20/2025 8:25 AM EDT [facility] Albumin 2.6(L) 3.2 - 5.0 g/dL LAB CHEMISTRY METHOD 02/20/2025 8:25 AM EDT [facility] Total Bilirubin 0.3 0.0 - 1.4 mg/dL LAB CHEMISTRY METHOD 02/20/2025 8:25 AM EDT [facility] Blood Venous blood specimen / Unknown 02/20/2025 7:00 AM EDT 02/20/2025 7:41 AM EDT us Yuri Saunders MD LAB BLOOD ORDERABLES Final Resul t [facility] [address] [place] [address], documented in this encounter Visit Diagnoses Diagnosis Other nursing home (current) drug therapy documented in this encounter Care Teams Table Worker Packager Relationship Specialty Start Date End Date Yuri Saunders MD [address] [place] [address] Dr [address] MELODIE Wolf PCP - General Internal Medicine 08/06/24 documented as of this encounter
--- OUTSIDE RECORDS SUMMARY | 2025-04-22 18:47 | XMS_ITS | Encounter Summary ---
Author Organization [employer] [facility] Address [address] [place] [address] Care Team Providers Care Director Packaging Name Role Phone Yuri Saunders MD Primary Care Provider [phone] Encounter Details Date Type Department Care Team (Late st Contact Info) Description 10/18/2024 Lab Requisition [facility] - Main Lab [address] [place] [address] Yuri Saunders MD [address] [place] [address] [address] [place], [place] Other fdc (current) drug therapy Social History Tobacco Use [...] SCREEN Routine 10/18/2024 12:00 AM EDT 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5 - 17.5 g/dL LAB HEMETOLOGY METHOD 10/18/2024 7[facility] Hematocrit 35.8(L) 42.0 - 54.0 % LAB HEMETOLOGY METHOD 10/18/2024 7:[facility] MCV 85.6 79.0 - 98.0 FL LAB HEMETOLOGY METHOD 10/18/2024 7:[facility] MCH 26.3(L) 27.0 - 32.0 pcg LAB HEMETOLOGY METHOD 10/18/2024 7:17 PM [facility] MCHC 30.7(L) 32.0 - 37.0 g/dL LAB HEMETOLOGY METHOD 10/18/2024 7:17 PM [facility] RDW 16.9(H) 11.0 - 15.0 % LAB HEMETOLOGY METHOD 10/18/2024 7:[facility] Platelets 271 130 - 400 K/mcL LAB HEMETOLOGY METHOD 10/18/2024 7:17 PM [facility] MPV 9.4 7.0 - 11.0 FL LAB HEMETOLOGY METHOD 10/18/2024 7:[facility] NRBC 0.0 <1.0 % LAB HEMETOLOGY METHOD 10/18/2024 7:17 PM [facility] NRBC Absolute 0.00 <0.10 K/mcL LAB HEMETOLOGY METHOD 10/18/2024 7:[facility] Neutrophils Relative 64.3 % LAB HEMETOLOGY METHOD 10/18/2024 7:17 PM [facility] Lymphocytes Relative 20.0 % LAB HEMETOLOGY METHOD 10/18/2024 7:17 PM EDT [facility] Monocytes Relative 13.6 % LAB HEMETOLOGY METHOD 10/18/2024 7:17 PM EDT [facility] Eosinophils Relative 1.5 % LAB HEMETOLOGY METHOD 10/18/2024 7:[facility] Basophils Relative 0.3 % LAB HEMETOLOGY METHOD 10/18/2024 7:17 PM EDT [facility] Immature Granulocytes Relative 0.3 % LAB HEMETOLOGY METHOD 10/18/2024 7:17 PM EDT [facility] Neutrophils Absolute 3.98 1.50 - 7.00 K/mcL LAB HEMETOLOGY METHOD 10/18/2024 7:[facility] Lymphocytes Absolute 1.24 1.00 - 5.00 K/mcL LAB HEMETOLOGY METHOD 10/18/2024 7:17 PM EDT [facility] Monocytes Absolute 0.84 0.20 - 1.00 K/mcL LAB HEMETOLOGY METHOD 10/18/2024 7:17 PM EDT [facility] Eosinophils Absolute 0.09 0.00 - 0.50 K/mcL LAB HEMETOLOGY METHOD 10/18/2024 7:17 PM [facility] Basophils Absolute 0.02 0.00 - 0.20 K/mcL LAB HEMETOLOGY METHOD 10/18/2024 7:17 PM EDT [facility] Immature Granulocytes Absolute 0.02 0.00 - 0.03 K/mcL LAB HEMETOLOGY METHOD 10/18/2024 7:17 PM T [facility] Blood Venous blood specimen / Unknown 10/18/2024 10/18/2024 6:59 PM EDT us Yuri Saunders MD LAB BLOOD ORDERABLES Final Resul t [facility] [address] [place] [address], [place] [phone] * Prostate specific antigen screen (10/18/2024 12:00 AM EDT) PSA 1.36 0.00 - 4.00 ng/mL LAB CHEMISTRY METHOD 10/18/2024 7:57 PM EDT [facility] Blood Venous blood specimen / Unknown 10/18/2024 10/18/2024 6:59 PM EDT Narrative [facility] - 10/18/2024 7:57 PM EDT The Siemens Advia Paymateaur Chemiluminescent Immunoassay is used. Results obtained with different assay methods or kits cannot be used interchangeably. Results cannot be interpreted as absolute evidence of the presence or absence of malignant disease. us Yuri Saunders MD LAB BLOOD ORDERABLES Final Resul t [facility] [address] [place] [address], [place] [phone] documented in this encounter Visit Diagnoses Diagnosis Other fdc (current) drug therapy documented in this encounter Care Teams Director Packaging Relationship Specialty Start Date End Date Yuri Saunders MD [address] [place] [address] [address] [place], [place] PCP - General Internal Medicine 08/06/24 documented as of this encounter
--- OUTSIDE RECORDS SUMMARY | 2025-04-22 18:47 | XMS_ITS | Encounter Summary ---
Author Organization [employer] Address [address] [place] [address] Care Team Providers Care Excelsior Cutter Name Role Phone Yuri Saunders MD Primary Care Provider [phone] Encounter Details Date Type Department Care Team (Late st Contact Info) Description 08/06/2024 Lab Requisition [facility] - Main Lab 299 [facility] [place] [address] Yuri Saunders MD [address] [place] [address] [address] [place], [place] Urinary tract infection, site not specified [...] Hold for add-ons. 08/06/2024 2:01 AM EDT [facility] Comment:Auto resulted. Urine Urine specimen obtained by clean catch procedure / Unknown 08/05/2024 10:30 PM EDT 08/06/2024 12:27 AM EDT us Yuri Saunders MD LAB URINE ORDERABLES Final Resul t Performing Organization Address [facility] de Phone Number [facility] [address] [place] [address], [place] [phone] * Rueda urine culture tube (08/05/2024 10:30 PM EDT) Extra Tube Hold for add-ons. 08/06/2024 2:01 AM EDT [facility] Comment:Auto resulted. Urine Urine specimen obtained by clean catch procedure / Unknown 08/05/2024 10:30 PM EDT 08/06/2024 12:27 AM EDT us Yuri Saunders MD LAB URINE ORDERABLES Final Resul t Performing Organization Address [facility] de Phone Number [facility] [address] [place] [address], [place] [phone] * Urinalysis with reflex microscopic and culture (08/05/2024 10:30 PM EDT) Pathologist [facility] Specific [place] Urine 1.020 1.003 - 1.030 LAB URINALYSIS - AUTOMATED METHOD 08/06/2024 12:33 AM EDT [facility] pH, Urine 6.5 5.0 - 8.0 pH LAB URINALYSIS - AUTOMATED METHOD 08/06/2024 12:33 AM EDT [facility] Leukocytes, Urine Negative Negative LAB URINALYSIS - AUTOMATED METHOD 08/06/2024 12:33 AM EDT [facility] Nitrite, Urine Negative Negative LAB URINALYSIS - AUTOMATED METHOD 08/06/2024 12:33 AM EDT [facility] Protein, Urine Negative <=Trace mg/dL LAB URINALYSIS - AUTOMATED METHOD 08/06/2024 12:33 AM EDT [facility] Glucose, Urine Negative Negative mg/dL LAB URINALYSIS - AUTOMATED METHOD 08/06/2024 12:33 AM [facility] Ketones, Urine Negative Negative mg/dL LAB URINALYSIS - AUTOMATED METHOD 08/06/2024 12:33 AM T [facility] Urobilinogen, Urine 1.0 0.2 - 1.0 mg/dL LAB URINALYSIS - AUTOMATED METHOD 08/06/2024 12:33 AM T [facility] Bilirubin, Urine Negative Negative LAB URINALYSIS - AUTOMATED METHOD 08/06/2024 12:33 AM [facility] Blood, Urine Negative Negative LAB URINALYSIS - AUTOMATED METHOD 08/06/2024 12:33 AM [facility] Urine Urine specimen obtained by clean catch procedure / Unknown 08/05/2024 10:30 PM EDT 08/06/2024 12:27 AM EDT us Yuri Saunders MD LAB URINE ORDERABLES Final Resul t [facility] [address] [place] [address], documented in this encounter Visit Diagnoses Diagnosis Urinary tract infection, site not specified documented in this encounter Care Teams Excelsior Cutter Relationship Specialty Start Date End Date Yuri Saunders MD [address] [place] [address] [address] [place] PCP - General Internal Medicine 08/06/24 documented as of this encounter
--- OUTSIDE RECORDS SUMMARY | 2025-04-22 18:47 | XMS_ITS | Encounter Summary ---
Author Organization [employer] [facility] Address [address] [place] [address] Care Team Providers Care Contact Center Assistant Name Role Phone Yuri Saunders MD Primary Care Provider [phone] Encounter Details Date Type Department Care Team (Late st Contact Info) Description 11/07/2024 Lab Requisition [facility] - Main Lab [address] [facility] [place] [address] Yuri Saunders MD [address] [place] [address] Dr [address] [place], [place] Hematuria, unspecified Social History Tobacco Use [...] reflex microscopic (11/07/2024 11:20 AM EDT) Specific [place] Urine 1.014 1.003 - 1.030 LAB URINALYSIS - AUTOMATED METHOD 11/07/2024 1:50 PM EDT [facility] pH, Urine 8.5(A) 5.0 - 8.0 pH LAB URINALYSIS - AUTOMATED METHOD 11/07/2024 1:50 PM [facility] Leukocytes, Urine Trace(A) Negative LAB URINALYSIS - AUTOMATED METHOD 11/07/2024 1:50 PM [facility] Nitrite, Urine Negative Negative LAB URINALYSIS - AUTOMATED METHOD 11/07/2024 1:50 PM [facility] Protein, Urine 100(A) <=Trace mg/dL LAB URINALYSIS - AUTOMATED METHOD 11/07/2024 1:50 PM [facility] Glucose, Urine Negative Negative mg/dL LAB URINALYSIS - AUTOMATED METHOD 11/07/2024 1:50 PM [facility] Ketones, Urine Negative Negative mg/dL LAB URINALYSIS - AUTOMATED METHOD 11/07/2024 1:50 PM [facility] Urobilinogen , Urine 1.0 0.2 - 1.0 mg/dL LAB URINALYSIS - AUTOMATED METHOD 11/07/2024 1:50 PM [facility] Bilirubin, Urine Negative Negative LAB URINALYSIS - AUTOMATED METHOD 11/07/2024 1:50 PM [facility] Blood, Urine Small(A) Negative LAB URINALYSIS - AUTOMATED METHOD 11/07/2024 1:50 PM [facility] RBC, Urine 1,634.6(H) 0 - 4 /HPF LAB URINALYSIS - AUTOMATED METHOD 11/07/2024 1:50 PM [facility] WBC, Urine 114.6(H) 0 - 4 /HPF LAB URINALYSIS - AUTOMATED METHOD 11/07/2024 1:50 PM [facility] Squamous Epithelial, Urine 9 0 - 60 /LPF LAB URINALYSIS - AUTOMATED METHOD 11/07/2024 1:50 PM [facility] Bacteria, Urine Negative Negative /HPF LAB URINALYSIS - AUTOMATED METHOD 11/07/2024 1:50 PM [facility] Hyaline Casts, Urine 8.3(H) 0 - 3 /LPF LAB URINALYSIS - AUTOMATED METHOD 11/07/2024 1:50 PM EDT [facility] Urine Urine specimen obtained by clean catch procedure / Unknown 11/07/2024 11:20 AM EDT 11/07/2024 12:50 PM EDT us Yuri Saunders MD LAB URINE ORDERABLES Final Resul t Performing Organization Address City/[facility]/ZIP Co de Phone Number [facility] [address] [place] [address], [place] [phone] * Rueda urine culture tube (11/07/2024 11:20 AM EDT) Extra Tube Hold for add-ons. 11/07/2024 2:02 PM EDT [facility] Comment:Auto resulted. Urine Urine specimen obtained by clean catch procedure / Unknown 11/07/2024 11:20 AM EDT 11/07/2024 12:50 PM EDT us Yuri Saunders MD LAB URINE ORDERABLES Final Resul t Performing Organization Address [facility] Co de Phone Number [facility] [address] [place] [address], [place] [phone] documented in this encounter Visit Diagnoses Diagnosis Hematuria, unspecified documented in this encounter Care Teams Contact Center Assistant Relationship Specialty Start Date End Date Yuri Saunders MD [address] [place] [address] Dr [address] MELODIE Wolf PCP - General Internal Medicine 08/06/24 documented as of this encounter
== END 2025-04-22 15:45 | disposition home or self-care (01) ==
LOC: HO.HOS 14:30
PROVIDERS: PCP Hospitalist; Visit Provider Orthopaedic Surgery
DX: G56.23 Lesion of ulnar nerve, bilateral upper limbs (principal); G56.02 Carpal tunnel syndrome, left upper limb; I73.9 Peripheral vascular disease, unspecified
CPT/HCPCS: 99204

== ENCOUNTER → 2025-04-22 14:29 | Outpatient (BNVA) | payer MEDICAID, SELFPAY | PROVIDERS: PCP Hospitalist; Visit Provider Orthopaedic Surgery | DX: G56.23 Lesion of ulnar nerve, bilateral upper limbs (principal); G56.02 Carpal tunnel syndrome, left upper limb; I73.9 Peripheral vascular disease, unspecified | CPT/HCPCS: 99202 ==

== ENCOUNTER 2025-05-07 11:16 | Outpatient (AMB) | payer MEDICAID, SELFPAY ==
[2025-05-07 11:28] VITALS: BMI 28.7
--- NOTE | 2025-05-07 11:28 | A.PHYSOV_ITS ---
Vital Signs 05/07/25 11:28 Height 5 ft 10 in Weight 200 lb BMI 28.7 Intake Visit Reasons[place] [facility] [place] chronic lumbar radiculopathy/stenosis Intake Note: Patient is a 64 year old male here for initial visit. Patient is referred for low back pain. [employer] Maker Required: No Allergies penicillin V Allergy (Unknown, Verified 05/07/25 11:28) Unknown doxycycline Allergy (Verified 05/07/25 11:28) Unknown HPI Comments Details: History of Present Illness The patient is a 64-year-old male presenting for evaluation of chronic, long- standing back pain. He reports significant pain in his back which radiates into his legs when he attempts to walk. He also describes a sensation of his back giving out when he walks. Patient has undergone lumbar surgery in the past. I am not sure the exact dates or what procedure he has undergone. Past surgical history is significant for a back surgery over 10 years ago. 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 He denies any recent x-rays of his back. Functionally, the patient is currently wheelchair-bound and has not been walking for a long time, primarily moving between his bed and the chair. Collateral information from his nurse indicates that he is able to ambulate but spends approximately 95% of his time in a wheelchair by his own preference. He reports being a little bit claustrophobic and denies having any metal in his body, stating previously placed hardware was removed. I reviewed the referring provider's no prior to consultation. Pain Description - Location: Patient reports a lot of pain in his back. - Radiation: Pain radiates into his legs when he walks. - Exacerbating Factors: Walking exacerbates the pain and causes his back to give out. Results - Imaging: No recent x-rays of the back have been performed. [facility] Surgical History (Updated 05/07/25 @ 11:30 by Ileana Whitman MA) History of back surgery Social History (Updated 05/07/25 @ 11:30 by Ileana Whitman MA) Alcohol intake: current Alcohol intake frequency: does not drink Patient Tobacco Use Status: Current someday Tobacco user Current occupational status: disabled Review of Systems Narrative Review of Systems - Musculoskeletal: Reports back pain and a sensation of his back giving out when he walks. - Neurological: Reports pain radiating into his legs when walking. - Neurological: Reports a little bit of numbness in the legs. - General: Denies weakness when he walks. Physical Exam Exam Exam: Physical Exam - General: Patient is seated in a wheelchair for the duration of the exam. Patient does have partial foot amputation on the left - Neurological: Sensation to light touch is grossly intact in bilateral lower extremities, though the patient reports it feels slightly different [id number] with some numbness. - Musculoskeletal/Lower Extremities: Patient has a partial amputation of the left foot. - Musculoskeletal/Lower Extremities: A brace is noted on the left foot. - Musculoskeletal/Lower Extremities: Motor strength is 5/5 with dorsiflexion of the right ankle. - Musculoskeletal/Lower Extremities: Motor strength is 0/5 with dorsiflexion of the left ankle, consistent with foot drop. - Musculoskeletal/Lower Extremities: The patient is able to actively straighten both legs and lift his thighs from a seated position. - Functional: The patient is unable to stand up from the wheelchair when asked. Vital Signs: BMI result Body Mass Index 28.7 Assessment & Plan Assessment & Plan (1) Vertebrogenic low back pain: Code(s): M54.51 - Vertebrogenic low back pain Category: Medical (2) Lumbar radiculopathy: Code(s): M54.16 - Radiculopathy, lumbar region Category: Medical Plan Pain Management - Activities of Daily Living: The patient is wheelchair-bound and has not walked in a long time, transferring only between his bed and chair, although it was reported by nursing staff that he is able to ambulate but prefers the wheelchair. - Functional Goals: He expresses a desire to walk again. Plan Patient was informed and verbally consented to the use of an ambient scribe for clinic note documentation during this visit. 1. Chronic Low Back Pain With Radiculopathy The patient presents with chronic low back pain, radiating leg pain, and significant functional decline, now being wheelchair-bound. He has a history of back surgery over 10 years ago and a left foot drop. To further evaluate for underlying pathology such as arthritis, disc issues, or nerve impingement that could be contributing to his symptoms, further imaging is warranted. An X-ray of the back will be ordered. An MRI of the back will also be ordered to be completed at [facility], taking into account the patient's reported claustrophobia. A follow-up appointment will be scheduled after the MRI results are available to discuss the findings and determine further treatment options. Discussion Notes I discussed with the patient and his certified low vision therapist the plan to investigate his chronic back pain and leg symptoms. I explained that I will be ordering a back x-ray and an MRI of his back. I informed them that the MRI would provide a detailed view of his spine to check for conditions like arthritis, disc problems, or pinched nerves, which could explain his symptoms and help us to better help him. I provided a form for the x-ray and explained that we will schedule a follow-up appointment once the MRI report is received. I also spoke with the patient's nurse, Lizbeth, via telephone to clarify his baseline mobility status, confirming that while he can ambulate, he primarily uses a wheelchair. Patient Instructions - We have given you a form to get an X-ray of your back. - We are also ordering an MRI scan of your back to get a better look at what might be causing your pain. - Please schedule a follow-up appointment with our office after your MRI is completed so we can review the results with you. Orders: Orders XR lumbar spine 4V min Today M54.9 - Dorsalgia, unspecified Coding Level of Care Code New Pt Level 4 (60493) Diagnoses Vertebrogenic low back pain M54.51 Lumbar radiculopathy M54.16
--- OUTSIDE RECORDS SUMMARY | 2025-05-07 12:51 | XMS_ITS | Encounter Summary ---
Author Organization [employer] Address [address] [place] [address] Care Team Providers Care Inside Sales Supervisor Name Role Phone Yuri Saunders MD Primary Care Provider [phone] Encounter Details Date Type Department Care Team (Late st Contact Info) Description 05/07/2025 Lab Requisition [facility] - Main Lab [address] [facility] [address] [place] [address] Yuri Saunders MD [address] [place] [address] Dr [address] [place], [place] Other chronic osteomyelitis, left ankle and foot (CMS/HCC V24, CMS/HCC V28) Social History Tobacco [...] Diagnosis Comments CBC WITH AUTO DIFFERENTIAL Routine 05/07/2025 7:24 AM EST Other chronic osteomyelitis, left ankle and foot (CMS/HCC V24, CMS/HCC V28) LAVENDER - EDTA Routine 05/07/2025 7:24 AM EST Other chronic osteomyelitis, left ankle and foot (CMS/HCC V24, CMS/HCC V28) SEDIMENTATION RATE Routine 05/07/2025 7: 24 AM EST Other chronic osteomyelitis, left ankle and foot (CMS/HCC V24, CMS/HCC V28) CBC AND DIFFERENTIAL Routine 05/07/2025 7:24 AM EST Other chronic osteomyelitis, left ankle and foot (CMS/HCC V24, CMS/HCC V28) documented in this encounter Results * Lavender tube (05/07/2025 7:24 AM EST) Pathologist [facility] Extra Tube Hold for add-ons. 05/07/2025 10:01 AM EST [facility] Comment:Auto resulted. Blood Venous blood specimen / Unknown 05/07/2025 7:24 AM EST 05/07/2025 8:11 AM EST us Yuri Saunders MD LAB BLOOD ORDERABLES Final Resul t [facility] [address] [place] [address], [place] [phone] * (ABNORMAL) CBC auto differential (05/07/2025 7:24 AM EST) Pathologist [facility] WBC 5.1 4.8 - 10.8 K/mcL LAB HEMETOLOGY METHOD 05/07/2025 8:40 AM [facility] RBC 4.00(L) 4.50 - 5.50 M/mcL LAB HEMETOLOGY METHOD 05/07/2025 8:40 AM [facility] Hemoglobin 10.8(L) 13.5 - 17.5 g/dL LAB HEMETOLOGY METHOD 05/07/2025 8:40 AM [facility] Hematocrit 33.7(L) 42.0 - 54.0 % LAB HEMETOLOGY METHOD 05/07/2025 8:40 AM [facility] MCV 84.7 79.0 - 98.0 FL LAB HEMETOLOGY METHOD 05/07/2025 8:40 AM [facility] MCH 27.1 27.0 - 32.0 pcg LAB HEMETOLOGY METHOD 05/07/2025 8:40 AM [facility] MCHC 32.0 32.0 - 37.0 g/dL LAB HEMETOLOGY METHOD 05/07/2025 8:40 AM [facility] RDW 15.6(H) 11.0 - 15.0 % LAB HEMETOLOGY METHOD 05/07/2025 8:40 AM [facility] Platelets LAB HEMETOLOGY METHOD 05/07/2025 8:40 AM [facility] Comment:Not measured. Unable to quantitate due to platelet clumping MPV 9.9 7.0 - 11.0 FL LAB HEMETOLOGY METHOD 05/07/2025 8:40 AM [facility] NRBC 0.0 <1.0 % LAB HEMETOLOGY METHOD 05/07/2025 8:40 AM [facility] NRBC Absolute 0.00 <0.10 K/mcL LAB HEMETOLOGY METHOD 05/07/2025 8:40 AM [facility] Neutrophils Relative 56.5 % LAB HEMETOLOGY METHOD 05/07/2025 8:40 AM [facility] Lymphocytes Relative 25.3 % LAB HEMETOLOGY METHOD 05/07/2025 8:40 AM [facility] Monocytes Relative 15.0 % LAB HEMETOLOGY METHOD 05/07/2025 8:40 AM [facility] Eosinophils Relative 2.2 % LAB HEMETOLOGY METHOD 05/07/2025 8:40 AM [facility] Basophils Relative 0.6 % LAB HEMETOLOGY METHOD 05/07/2025 8:40 AM [facility] Immature Granulocytes Relative 0.4 % LAB HEMETOLOGY METHOD 05/07/2025 8:40 AM [facility] Neutrophils Absolute 2.86 1.50 - 7.00 K/mcL LAB HEMETOLOGY METHOD 05/07/2025 8:40 AM [facility] Lymphocytes Absolute 1.28 1.00 - 5.00 K/mcL LAB HEMETOLOGY METHOD 05/07/2025 8:40 AM [facility] Monocytes Absolute 0.76 0.20 - 1.00 K/[facility] LAB HEMETOLOGY METHOD 05/07/2025 8:40 AM EST [facility] Eosinophils Absolute 0.11 0.00 - 0.50 K/[facility] LAB HEMETOLOGY METHOD 05/07/2025 8:40 AM EST [facility] Basophils Absolute 0.03 0.00 - 0.20 K/[facility] LAB HEMETOLOGY METHOD 05/07/2025 8:40 AM EST [facility] Immature Granulocytes Absolute 0.02 0.00 - 0.03 K/[facility] LAB HEMETOLOGY METHOD 05/07/2025 8:40 AM EST [facility] Blood Venous blood specimen / Unknown 05/07/2025 7:24 AM EST 05/07/2025 8:11 AM EST us Yuri Saunders MD LAB BLOOD ORDERABLES Final Resul t Performing Organization Address City/[facility]/ZIP Co de Phone Number [facility] [address] [place] [address], [place] [phone] * (ABNORMAL) Sedimentation rate (05/07/2025 7:24 AM EST) Sed Rate 62(H) 0 - 20 mm/hr LAB HEMETOLOGY METHOD 05/07/2025 8:29 AM EST [facility] Blood Venous blood specimen / Unknown 05/07/2025 7:24 AM EST 05/07/2025 8:11 AM EST us Yuri Saunders MD LAB BLOOD ORDERABLES Final Resul t Performing Organization Address City/[facility]/ZIP Co de Phone Number [facility] [address] [place] [address], [place] [phone] documented in this encounter Visit Diagnoses Diagnosis Other chronic osteomyelitis, left ankle and foot (CMS/HCC V24, CMS/HCC V28) documented in this encounter Care Teams Inside Sales Supervisor Relationship Specialty Start Date End Date Yuri Saunders MD [address] [place] [address] Dr [address] MELODIE Wolf PCP - General Internal Medicine 08/06/24 documented as of this encounter
--- OUTSIDE RECORDS SUMMARY | 2025-05-07 12:51 | XMS_ITS | Encounter Summary ---
Author Organization [email or web address] [facility] Address [address] [place] [address] Care Team Providers Care Cook Tortilla Name Role Phone Yuri Saunders MD Primary Care Provider [phone] Encounter Details Date Type Department Care Team (Late st Contact Info) Description 10/18/[address] 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 RBC 4.20(L) 4.50 - 5.50 M/[facility] LAB HEMETOLOGY METHOD [facility] Hemoglobin 11.0(L) 13.5 - 17.5 g/dL LAB HEMETOLOGY METHOD 10/18[facility]2024 7[facility] Hematocrit 35.8(L) 42.0 - 54.0 % LAB HEMETOLOGY METHOD 10/18/2024 7[facility] MCV 85.6 79.0 - 98.0 FL LAB HEMETOLOGY METHOD 10/18[facility]2024 7[facility] MCH 26.3(L) 27.0 - 32.0 pcg LAB HEMETOLOGY METHOD 10/18/2024 7:17 PM [facility] MCHC 30.7(L) 32.0 - 37.0 g/dL LAB HEMETOLOGY METHOD 10/18/2024 7:17 PM [facility] RDW 16.9(H) 11.0 - 15.0 % LAB HEMETOLOGY METHOD 10/18/2024 7[facility] Platelets 271 130 - 400 K/mcL LAB HEMETOLOGY METHOD 10/18/2024 7:17 PM [facility] MPV 9.4 7.0 - 11.0 FL LAB HEMETOLOGY METHOD 10/18[facility]2024 7[facility] NRBC 0.0 <1.0 % LAB HEMETOLOGY METHOD 10/18/2024 7:17 PM [facility] NRBC Absolute 0.00 <0.10 K/mcL LAB HEMETOLOGY METHOD 10/18/2024 7:[facility] Neutrophils Relative 64.3 % LAB HEMETOLOGY METHOD 10/18/2024 7:17 PM [facility] Lymphocytes Relative 20.0 % LAB HEMETOLOGY METHOD 10/18/2024 7:17 PM EDT [facility] Monocytes Relative 13.6 % LAB HEMETOLOGY METHOD 10/18/2024 7:17 PM EDT [facility] Eosinophils Relative 1.5 % LAB HEMETOLOGY METHOD [facility]24 [facility] Basophils Relative 0.3 % LAB HEMETOLOGY METHOD 10/18/2024 7:17 PM EDT [facility] Immature Granulocytes Relative 0.3 % LAB HEMETOLOGY METHOD 10/18/2024 7:17 PM EDT [facility] Neutrophils Absolute 3.98 1.50 - 7.00 K/mcL LAB HEMETOLOGY METHOD [facility]2024 7[facility] Lymphocytes Absolute 1.24 1.00 - 5.00 K/mcL LAB HEMETOLOGY METHOD 10/18/2024 7:17 PM EDT [facility] Monocytes Absolute 0.84 0.20 - 1.00 K/mcL LAB HEMETOLOGY METHOD 10/18/2024 7:17 PM EDT [facility] Eosinophils Absolute 0.09 0.00 - 0.50 K/mcL LAB HEMETOLOGY METHOD 10/18/2024 7:17 PM [facility] Basophils Absolute 0.02 0.00 - 0.20 K/mcL LAB HEMETOLOGY METHOD 10/18/2024 7:17 PM EDT [facility] Immature Granulocytes Absolute 0.02 0.00 - 0.03 K/mcL LAB HEMETOLOGY METHOD 10/18/2024 7:17 PM T [facility] Blood Venous blood specimen / Unknown 10/18/2024 10/18/2024 6:59 PM EDT us Yuri Saunders MD LAB BLOOD ORDERABLES Final Resul t [facility] [address] [place] [address], [place] [phone] * Prostate specific antigen screen (10/18/2024 12:00 AM EDT) PSA 1.36 0.00 - 4.00 ng/mL LAB CHEMISTRY METHOD 10/18/2024 7:57 PM EDT [facility] Blood Venous blood specimen / Unknown 10/18/2024 10/18/2024 6:59 PM EDT Narrative [facility] - 10/18/2024 7:57 PM EDT The Siemens Advia Target Dataaur Chemiluminescent Immunoassay is used. Results obtained with different assay methods or kits cannot be used interchangeably. Results cannot be interpreted as absolute evidence of the presence or absence of malignant disease. us Yuri Saunders MD LAB BLOOD ORDERABLES Final Resul t [facility] [address] [place] [address], [place] [phone] documented in this encounter Visit Diagnoses Diagnosis Other [facility] drug therapy documented in this encounter Care Teams Cook Tortilla Relationship Specialty Start Date End Date Yuri Saunders MD [address] [place] [address] Dr [address] [place], [place] PCP - General Internal Medicine 08/06/24 documented as of this encounter
--- OUTSIDE RECORDS SUMMARY | 2025-05-07 12:51 | XMS_ITS | Encounter Summary ---
Author Organization [employer] [facility] Address [address] [place] [address] Care Team Providers Care Small Appliance Assembly Supervisor Name Role Phone Yuri Saunders MD Primary Care Provider [phone] Encounter Details Date Type Department Care Team (Late st Contact Info) Description 02/19/2025 Lab Requisition [facility] - Main Lab [address] [facility] [place] [address] Yuri Saunders MD [address] [place] [address] [address] [place], [place] Type 2 diabetes mellitus with foot [...] metabolism documented in this encounter Care Teams Small Appliance Assembly Supervisor Relationship Specialty Start Date End Date Yuri Saunders MD [address] [place] [address] Dr [address] [place], [place] PCP - General Internal Medicine 08/06/24 documented as of this encounter
--- OUTSIDE RECORDS SUMMARY | 2025-05-07 12:51 | XMS_ITS | Encounter Summary ---
Author Organization [employer] Address [address] [place] [address] Care Team Providers Care Roofer Applicator Name Role Phone Yuri Saunders MD Primary Care Provider [phone] Encounter Details Date Type Department Care Team (Late st Contact Info) Description 08/19/2024 Lab Requisition [facility] - Main Lab 299 [facility] [place] [address] Yuri Saunders MD [address] [place] [address] [address] [place], [place] Type 2 diabetes mellitus with foot [...] 2 diabetes mellitus with foot ulcer (CODE) ([facility] V24, [facility] V28) Essential (primary) hypertension Hyperlipidemia, unspecified documented in this encounter Results * Lavender tube (08/19/2024 7:05 AM EDT) Extra Tube Hold for add-ons. 08/19/2024 10:[address] [facility] Comment:Auto resulted. Blood Venous blood specimen / Unknown 08/19/2024 7:05 AM EDT 08/19/2024 8:02 AM EDT us Yuri Saunders MD LAB BLOOD ORDERABLES Final Resul t [facility] [address] [place] [address], [place] [phone] * SST tube (08/19/2024 7:05 AM EDT) Extra Tube Hold for add-ons. 08/19/2024 10:[address] [facility] Comment:Auto resulted. Blood Venous blood specimen / Unknown 08/19/2024 7:05 AM EDT 08/19/2024 8:02 AM EDT us Yuri Saunders MD LAB BLOOD ORDERABLES Final Resul t [facility] [address] [place] [address], [place] [phone] * Red tube (08/19/2024 7:05 AM EDT) Extra Tube Hold for add-ons. 08/19/2024 10:[address] [facility] Comment:Auto resulted. Blood Venous blood specimen / Unknown 08/19/2024 7:05 AM EDT 08/19/2024 8:02 AM EDT us Yuri Saunders MD LAB BLOOD ORDERABLES Final Resul t [facility] [address] [place] [address], * (ABNORMAL) CBC auto differential (08/19/2024 7:05 [...] LAB Eosinophils Absolute 0.17 0.00 - 0.50 [facility] HEMETOLOGY METHOD 08/19/2024 8:[address] [facility] Basophils Absolute 0.03 0.00 - 0.20 K/[facility] HEMETOLOGY METHOD 08/19/2024 8:[address] [facility] Immature Granulocytes Absolute 0.02 0.00 - 0.03 K/[facility] HEMETOLOGY METHOD 08/19/2024 8:[address] [facility] Blood Venous blood specimen / Unknown 08/19/2024 7:05 AM EDT 08/19/2024 8:02 AM EDT us Yuri Saunders MD LAB BLOOD ORDERABLES Final Resul t Performing Organization Address [facility]/ZIP Co de Phone Number [facility] [address] [place] [address], * Thyroid stimulating hormone (08/19/2024 7:05 AM EDT) TSH 1.26 0.40 - 4.00 mcIU/mL LAB CHEMISTRY METHOD 08/19/2024 10:[address] [facility] Blood Venous blood specimen / Unknown 08/19/2024 7:05 AM EDT 08/19/2024 8:02 AM EDT us Yuri Saunders MD LAB BLOOD ORDERABLES Final Resul t [facility] [address] [place] [address], * (ABNORMAL) Magnesium (08/19/2024 7:05 AM EDT) Magnesium 1.8(L) 1.9 - 2.6 mg/dL LAB CHEMISTRY METHOD 08/19/2024 8:[address] [facility] Blood Venous blood specimen / Unknown 08/19/2024 7:05 AM EDT 08/19/2024 8:02 AM EDT us Yuri Saunders MD LAB BLOOD ORDERABLES Final Resul t Performing Organization Address [facility] de Phone Number [facility] [address] [place] [address], [place] [phone] * Hemoglobin A1c (08/19/2024 7:05 AM EDT) Hemoglobin A1C 6.3 <6.5 % LAB CHEMISTRY METHOD 08/19/2024 1:[address] [facility] Mean Bld Glu Estim. 134 mg/dL LAB CHEMISTRY METHOD 08/19/2024 1:[address] [facility] Blood Venous blood specimen / Unknown 08/19/2024 7:05 AM EDT 08/19/2024 8:02 AM EDT us Yuri Saunders MD LAB BLOOD ORDERABLES Final Resul t Performing Organization Address [facility] de Phone Number [facility] [address] [place] [address], [place] [phone] * Thyroxine free (08/19/2024 7:05 AM EDT) Free T4 1.16 0.70 - 1.80 ng/dL LAB CHEMISTRY METHOD 08/19/2024 10:[address] [facility] Blood Venous blood specimen / Unknown 08/19/2024 7:05 AM EDT 08/19/2024 8:02 AM EDT us Yuri Saunders MD LAB BLOOD ORDERABLES Final Resul t Performing Organization Address [facility] Co de Phone Number [facility] [address] [place] [address], [place] [phone] * Cortisol (08/19/2024 7:05 AM EDT) Cortisol 9.2 mcg/dL LAB CHEMISTRY METHOD 08/19/2024 10:[address] [facility] Blood Venous blood specimen / Unknown 08/19/2024 7:05 AM EDT 08/19/2024 8:[address] [facility] - 08/19/2024 10:16 AM EDT CORTISOL REFERENCE RANGE 8 AM SPEC: 5.0-23.0 mcg/dL 4 PM SPEC: 3.0-16.0 mcg/dL 8 PM SPEC: <5.0 mcg/dL us Yuri Saunders MD LAB BLOOD ORDERABLES Final Resul t Performing Organization Address [facility] de Phone Number [facility] [address] [place] [address], [place] [phone] * Ammonia (08/19/2024 7:05 AM EDT) Ammonia 35 11 - 35 mcmol/L LAB CHEMISTRY METHOD 08/19/2024 8:[address] [facility] Blood Venous blood specimen / Unknown 08/19/2024 7:05 AM EDT 08/19/2024 8:02 AM EDT us Yuri Saunders MD LAB BLOOD ORDERABLES Final Resul t Performing Organization Address [facility]/ZIP Co de Phone Number [facility] [address] [place] [address], [place] [phone] * Lipid panel with reflex to direct LDL (08/19/2024 7:05 AM EDT) Cholesterol 131 0 - 200 mg/dL LAB CHEMISTRY METHOD 08/19/2024 8:[address] [facility] Triglycerides 35 0 - 150 mg/dL LAB CHEMISTRY METHOD 08/19/2024 8:[address] [facility] HDL 57 >=40 mg/dL LAB CHEMISTRY METHOD 08/19/2024 8:[address] [facility] LDL Calculated 67 0 - 100 mg/dL LAB CHEMISTRY METHOD 08/19/2024 8:50 AM [facility] VLDL Cholesterol Chris 7 mg/dL LAB CHEMISTRY METHOD 08/19/2024 8:[address] [facility] Non HDL Chol. (LDL+VLDL) 74 [...] MD LAB BLOOD ORDERABLES Final Resul t [facility] [address] [place] [address], [place] [phone] * (ABNORMAL) Comprehensive metabolic panel (08/19/2024 7:05 [...] MD LAB BLOOD ORDERABLES Final Resul t [facility] ([facility]) [facility] [address] [place] [address], documented in this encounter Visit Diagnoses Diagnosis Type 2 diabetes mellitus with foot ulcer (CODE) (CMS/HCC V24, [facility] V28) Essential (primary) hypertension Unspecified essential hypertension Hyperlipidemia, unspecified documented in this encounter Care Teams Roofer Applicator Relationship Specialty Start Date End Date Yuri Saunders MD [address] [place] [address] Dr [address] [place], [place] PCP - General Internal Medicine 08/06/24 documented as of this encounter
--- OUTSIDE RECORDS SUMMARY | 2025-05-07 12:51 | XMS_ITS | Encounter Summary ---
Author Organization [employer] Address [address] [place] [address] Care Team Providers Care Strategy Consultant Name Role Phone Yuri Saunders MD Primary Care Provider [phone] Encounter Details Date Type Department Care Team (Late st Contact Info) Description 02/20/2025 Lab Requisition [facility] - Main Lab 299 [facility] [place] [address] Yuri Saunders MD [address] [place] [address] Dr [address] [place], [place] Other mcc (current) drug therapy Social History Tobacco Use [...] DIFFERENTIAL Routine 02/20/2025 7:00 AM EDT Other mcc (current) drug therapy CBC AND DIFFERENTIAL Routine 02/20/2025 7:00 AM EDT 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 THYROID STIMULATING HORMONE Routine 02/20/2025 7:00 AM EDT 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 THYROXINE FREE Routine 02/20/2025 7:00 AM EDT Other mcc (current) drug therapy HEMOGLOBIN A1C Routine 02/20/2025 7:00 AM EDT Other mcc (current) drug therapy AMMONIA Routine 02/20/2025 7:00 AM EDT 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 COMPREHENSIVE METABOLIC PANEL Routine 02/20/2025 7:00 AM EDT Other mcc (current) drug therapy documented in this encounter Results * (ABNORMAL) CBC auto differential (02/20/2025 7:00 AM EDT) [facility] WBC 8.3 4.8 - 10.8 K/mcL LAB HEMETOLOGY METHOD 02/20/2025 8:00 AM [facility] RBC 4.00(L) 4.50 - 5.50 M/mcL LAB HEMETOLOGY METHOD 02/20/2025 8:00 AM [facility] Hemoglobin 10.8(L) 13.5 - 17.5 g/dL LAB HEMETOLOGY METHOD 02/20/2025 8:00 AM [facility] Hematocrit 33.7(L) 42.0 - 54.0 % LAB HEMETOLOGY METHOD 02/20/2025 8:00 AM [facility] MCV 84.0 79.0 - 98.0 FL LAB HEMETOLOGY METHOD 02/20/2025 8:00 AM [facility] MCH 26.9(L) 27.0 - 32.0 pcg LAB HEMETOLOGY METHOD 02/20/2025 8:00 AM [facility] MCHC 32.0 32.0 - 37.0 g/dL LAB HEMETOLOGY METHOD 02/20/2025 8:00 AM [facility] RDW 15.1(H) 11.0 - 15.0 % LAB HEMETOLOGY METHOD 02/20/2025 8:00 AM [facility] Platelets 289 130 - 400 K/mcL LAB HEMETOLOGY METHOD 02/20/2025 8:00 AM [facility] MPV 9.0 7.0 - 11.0 FL LAB HEMETOLOGY METHOD 02/20/2025 8:00 AM [facility] NRBC 0.0 <1.0 % LAB HEMETOLOGY METHOD 02/20/2025 8:00 AM [facility] NRBC Absolute 0.00 <0.10 K/mcL LAB HEMETOLOGY METHOD 02/20/2025 8:00 AM [facility] Neutrophils Relative 64.8 % LAB HEMETOLOGY METHOD 02/20/2025 8:00 AM [facility] Lymphocytes Relative 17.8 % LAB HEMETOLOGY METHOD 02/20/2025 8:00 AM [facility] Monocytes Relative 14.4 % LAB HEMETOLOGY METHOD 02/20/2025 8:00 AM [facility] Eosinophils Relative 2.3 % LAB HEMETOLOGY METHOD 02/20/2025 8:00 AM [facility] Basophils Relative 0.5 % LAB HEMETOLOGY METHOD 02/20/2025 8:00 AM [facility] Immature Granulocytes Relative 0.2 % LAB HEMETOLOGY METHOD 02/20/2025 8:00 AM [facility] Neutrophils Absolute 5.39 1.50 - 7.00 K/mcL LAB HEMETOLOGY METHOD 02/20/2025 8:00 AM [facility] Lymphocytes Absolute 1.48 1.00 - 5.00 K/mcL LAB HEMETOLOGY METHOD 02/20/2025 8:00 AM [facility] Monocytes Absolute 1.20(H) 0.20 - 1.00 K/mcL LAB HEMETOLOGY METHOD 02/20/2025 8:00 AM [facility] Eosinophils Absolute 0.19 0.00 - 0.50 K/mcL LAB HEMETOLOGY METHOD 02/20/2025 8:00 AM [facility] Basophils Absolute 0.04 0.00 - 0.20 K/mcL LAB HEMETOLOGY METHOD 02/20/2025 8:00 AM EDT [facility] Immature Granulocytes Absolute 0.02 0.00 - 0.03 K/mcL LAB HEMETOLOGY METHOD 02/20/2025 8:00 AM EDT [facility] Blood Venous blood specimen / Unknown 02/20/2025 7:00 AM EDT 02/20/2025 7:41 AM EDT us Yuri Saunders MD LAB BLOOD ORDERABLES Final Resul t Performing Organization Address [facility]/ZIP Co de Phone Number [facility] [address] [place] [address], [place] [phone] * Thyroid stimulating hormone (02/20/2025 7:00 AM EDT) TSH 0.96 0.40 - 4.00 mcIU/mL LAB CHEMISTRY METHOD 02/20/2025 9:49 AM EDT [facility] Blood Venous blood specimen / Unknown 02/20/2025 7:00 AM EDT 02/20/2025 7:41 AM EDT us Yuri Saunders MD LAB BLOOD ORDERABLES Final Resul t Performing Organization Address [facility]/ZIP Co de Phone Number [facility] [address] [place] [address], [place] [phone] * Hemoglobin A1c (02/20/2025 7:00 AM EDT) Hemoglobin A1C 6.2 <6.5 % LAB CHEMISTRY METHOD 02/20/2025 9:32 AM EDT [facility] Mean Bld Glu Estim. 131 mg/dL LAB CHEMISTRY METHOD 02/20/2025 9:32 AM EDT [facility] Blood Venous blood specimen / Unknown 02/20/2025 7:00 AM EDT 02/20/2025 7:41 AM EDT us Yuri Saunders MD LAB BLOOD ORDERABLES Final Resul t Performing Organization Address [facility] de Phone Number [facility] [address] [place] [address], [place] [phone] * Thyroxine free (02/20/2025 7:00 AM EDT) Free T4 1.29 0.70 - 1.80 ng/dL LAB CHEMISTRY METHOD 02/20/2025 9:49 AM EDT [facility] Blood Venous blood specimen / Unknown 02/20/2025 7:00 AM EDT 02/20/2025 7:41 AM EDT us Yuri Saunders MD LAB BLOOD ORDERABLES Final Resul t Performing Organization Address [facility] de Phone Number [facility] [address] [place] [address], [place] [phone] * (ABNORMAL) Ammonia (02/20/2025 7:00 AM EDT) Ammonia 47(H) 11 - 35 mcmol/L LAB CHEMISTRY METHOD 02/20/2025 8:14 AM EDT [facility] Blood Venous blood specimen / Unknown 02/20/2025 7:00 AM EDT 02/20/2025 7:41 AM EDT us Yuri Saunders MD LAB BLOOD ORDERABLES Final Resul t Performing Organization Address [facility] de Phone Number [facility] [address] [place] [address], [place] [phone] * (ABNORMAL) Comprehensive metabolic panel (02/20/2025 7:00 AM EDT) Sodium 138 133 - 145 mmol/L LAB CHEMISTRY METHOD 02/20/2025 8:25 AM EDT [facility] Potassium 4.1 3.5 - 5.5 mmol/L LAB CHEMISTRY METHOD 02/20/2025 8:25 AM [facility] Chloride 103 96 - 110 mmol/L LAB CHEMISTRY METHOD 02/20/2025 8:25 AM [facility] CO2 33(H) 21 - 32 mmol/L LAB CHEMISTRY METHOD 02/20/2025 8:25 AM [facility] Anion Gap 2(L) 3 - 11 LAB CHEMISTRY METHOD 02/20/2025 8:25 AM [facility] Glucose 87 70 - 100 mg/dL LAB CHEMISTRY METHOD 02/20/2025 8:25 AM [facility] BUN 14 5 - 25 mg/dL LAB CHEMISTRY METHOD 02/20/2025 8:25 AM [facility] Creatinine 0.56(L) 0.70 - 1.30 mg/dL LAB CHEMISTRY METHOD 02/20/2025 8:25 AM [facility] eGFR 111 >=60 mL/min/1. 73m2 LAB CHEMISTRY METHOD 02/20/2025 8:25 AM [facility] Comment:Calculation based on the Chronic Kidney Disease Epidemiology Collaboration (CKD-EPI) equation refit without adjustment for race. BUN/Creatinine Ratio 25.0 LAB CHEMISTRY METHOD 02/20/2025 8:25 AM [facility] Calcium 8.7 8.5 - 10.5 mg/dL LAB CHEMISTRY METHOD 02/20/2025 8:25 AM [facility] AST (SGOT) 40 10 - 42 unit/L LAB CHEMISTRY METHOD 02/20/2025 8:25 AM [facility] ALT (SGPT) 49 10 - 60 unit/L LAB CHEMISTRY METHOD 02/20/2025 8:25 AM [facility] Alkaline Phosphatase 196(H) 42 - 121 unit/L LAB CHEMISTRY METHOD 02/20/2025 8:25 AM [facility] Total Protein 6.6 6.0 - 8.0 g/dL LAB CHEMISTRY METHOD 02/20/2025 8:25 AM EDT [facility] Albumin 2.6(L) 3.2 - 5.0 g/dL LAB CHEMISTRY METHOD 02/20/2025 8:25 AM EDT [facility] Total Bilirubin 0.3 0.0 - 1.4 mg/dL LAB CHEMISTRY METHOD 02/20/2025 8:25 AM EDT [facility] Blood Venous blood specimen / Unknown 02/20/2025 7:00 AM EDT 02/20/2025 7:41 AM EDT us Yuri Saunders MD LAB BLOOD ORDERABLES Final Resul t [facility] [address] [place] [address], documented in this encounter Visit Diagnoses Diagnosis Other mcc (current) drug therapy documented in this encounter Care Teams Strategy Consultant Relationship Specialty Start Date End Date Yuri Saunders MD [address] [place] [address] Dr [address] MELODIE Wolf PCP - General Internal Medicine 08/06/24 documented as of this encounter
--- OUTSIDE RECORDS SUMMARY | 2025-05-07 12:51 | XMS_ITS | Encounter Summary ---
Author Organization [employer] Address [address] [place] [address] Care Team Providers Care Microbiology Supervisor Name Role Phone Yuri Saunders MD Primary Care Provider [phone] Encounter Details Date Type Department Care Team (Late st Contact Info) Description 11/18/2024 Lab Requisition [facility] - Main Lab [address] [facility] [place] [address] Yuri Saunders MD [address] [place] [address] [address] [place], [place] Type 2 diabetes mellitus with foot [...] LAB CHEMISTRY METHOD 11/18/2024 6:59 PM EDT [facility] Blood Venous blood specimen / Unknown 11/18/2024 11/18/2024 6:35 PM EDT us Yuri Saunders MD LAB BLOOD ORDERABLES Final Resul t Performing Organization Address [facility]/ZIP Co de Phone Number [facility] [address] [place] [address], [place] [phone] * Hemoglobin A1c (11/18/2024 12:00 AM EDT) Pathologist [facility] Hemoglobin A1C 6.2 <6.5 % LAB CHEMISTRY METHOD 11/19/2024 1:24 PM EDT [facility] Mean Bld Glu Estim. 131 mg/dL LAB CHEMISTRY METHOD 11/19/2024 1:24 PM EDT [facility] Blood Venous blood specimen / Unknown 11/18/2024 11/18/2024 6:35 PM EDT us Yuri Saunders MD LAB BLOOD ORDERABLES Final Resul t Performing Organization Address City/[facility]/ZIP Co de Phone Number [facility] [address] [place] [address], [place] [phone] * (ABNORMAL) Comprehensive metabolic panel (11/18/2024 12:00 AM EDT) Sodium 139 133 - 145 mmol/L LAB CHEMISTRY METHOD 11/18/2024 8:41 PM EDT [facility] Potassium 4.8 3.5 - 5.5 mmol/L LAB CHEMISTRY METHOD 11/18/2024 8:41 PM EDT [facility] Chloride 104 96 - 110 mmol/L LAB CHEMISTRY METHOD 11/18/2024 8:41 PM [facility] CO2 31 21 - 32 mmol/L LAB CHEMISTRY METHOD 11/18/2024 8:41 PM [facility] Anion Gap 4 3 - 11 LAB CHEMISTRY METHOD 11/18/2024 8:41 PM [facility] Glucose 72 70 - 100 mg/dL LAB CHEMISTRY METHOD 11/18/2024 8:41 PM [facility] BUN 12 5 - 25 mg/dL LAB CHEMISTRY METHOD 11/18/2024 8:41 PM [facility] Creatinine 0.50(L) 0.70 - 1.30 mg/dL LAB CHEMISTRY METHOD 11/18/2024 8:41 PM [facility] eGFR 115 >=60 mL/min/1. 73m2 LAB CHEMISTRY METHOD 11/18/2024 8:41 PM [facility] Comment:Calculation based on the Chronic Kidney Disease Epidemiology Collaboration (CKD-EPI) equation refit without adjustment for race. BUN/Creatinine Ratio 24.0 LAB CHEMISTRY METHOD 11/18/2024 8:41 PM [facility] Calcium 8.6 8.5 - 10.5 mg/dL LAB CHEMISTRY METHOD 11/18/2024 8:41 PM [facility] AST (SGOT) 29 10 - 42 unit/L LAB CHEMISTRY METHOD 11/18/2024 8:41 PM [facility] ALT (SGPT) 37 10 - 60 unit/L LAB CHEMISTRY METHOD 11/18/2024 8:41 PM [facility] Alkaline Phosphatase 182(H) 42 - 121 unit/L LAB CHEMISTRY METHOD 11/18/2024 8:41 PM [facility] Total Protein 7.1 6.0 - 8.0 g/dL LAB CHEMISTRY METHOD 11/18/2024 8:41 PM EDT [facility] Albumin 3.0(L) 3.2 - 5.0 g/dL LAB CHEMISTRY METHOD 11/18/2024 8:[address] [facility] Total Bilirubin 0.3 0.0 - 1.4 mg/dL LAB CHEMISTRY METHOD 11/18/2024 8:41 PM EDT [facility] Blood Venous blood specimen / Unknown 11/18/2024 11/18/2024 6:35 PM EDT us Yuri Saunders MD LAB BLOOD ORDERABLES Final Resul t [facility] [address] [place] [address], documented in this encounter Visit Diagnoses Diagnosis Type 2 diabetes mellitus with foot ulcer (CODE) (CMS/HCC V24, CMS/[facility] V28) Disorder of urea cycle metabolism, unspecified ([facility] V24) documented in this encounter Care Teams Microbiology Supervisor Relationship Specialty Start Date End Date Yuri Saunders MD [address] [place], [place] PCP - General Internal Medicine 08/06/24 documented as of this encounter
--- OUTSIDE RECORDS SUMMARY | 2025-05-07 12:51 | XMS_ITS | Encounter Summary ---
Author Organization [employer] [facility] Address [address] [place] [address] Care Team Providers Care Die Setter Name Role Phone Yuri Saunders MD Primary Care Provider [phone] Encounter Details Date Type Department Care Team (Late st Contact Info) Description 11/07/2024 Lab Requisition [facility] - Main Lab [address] [facility] [place] [address] Yuri Saunders MD [address] [place] [address] [address] [place], [place] Hematuria, unspecified Social History Tobacco Use [...] reflex microscopic (11/07/2024 11:20 AM EDT) Specific [place] Urine 1.014 1.003 - 1.030 LAB URINALYSIS - AUTOMATED METHOD 11/07/2024 1:50 PM EDT [facility] ([facility] pH, Urine 8.5(A) 5.0 [...] ORDERABLES Final Resul t Performing Organization Address City/[facility]/ZIP Co de Phone Number [facility] [address] [place] [address], [place] [phone] * Rueda urine culture tube (11/07/2024 11:20 AM EDT) Extra Tube Hold for add-ons. 11/07/2024 2:02 PM EDT [facility] Comment:Auto resulted. Urine Urine specimen obtained by clean catch procedure / Unknown 11/07/2024 11:20 AM EDT 11/07/2024 12:50 PM EDT us Yuri Saunders MD LAB URINE ORDERABLES Final Resul t Performing Organization Address [facility] Co de Phone Number [facility] [address] [place] [address], [place] [phone] documented in this encounter Visit Diagnoses Diagnosis Hematuria, unspecified documented in this encounter Care Teams Die Setter Relationship Specialty Start Date End Date Yuri Saunders MD [address] [place] [address] [address] MELODIE Wolf PCP - General Internal Medicine 08/06/24 documented as of this encounter
--- OUTSIDE RECORDS SUMMARY | 2025-05-07 12:52 | XMS_ITS | Encounter Summary ---
Author Organization [employer] Address [address] [place] [address] Care Team Providers Care Sweatband Decorating Machine Operator Name Role Phone Yuri Saunders MD Primary Care Provider [phone] Encounter Details Date Type Department Care Team (Late st Contact Info) Description 07/03/2024 Lab Requisition [facility] - Main Lab [address] [place] [address] Yuri Saunders MD [address] [place] [address] [address] [place], [place] Schizophrenia, unspecified (CMS/HCC V24, CMS/HCC V28) [...] PM EST) WBC 7.2 4.8 - 10.8 K/[facility] LAB HEMETOLOGY METHOD 07/03/2024 7:28 PM EST [facility] RBC 4.40(L) 4.50 - 5.50 M/[facility] LAB HEMETOLOGY METHOD 07/03/2024 7:28 PM EST [facility] Hemoglobin 11.2(L) 13.5 - 17.5 g/dL LAB HEMETOLOGY METHOD 07/03/2024 7:28 PM [facility] LAB Hematocrit 36.0(L) 42.0 - 54.0 % LAB HEMETOLOGY METHOD 07/03/2024 7:28 PM [facility] MCV 82.6 79.0 - 98.0 [place] LAB HEMETOLOGY METHOD 07/03/2024 7:28 PM [facility] MCH 25.7(L) 27.0 - 32.0 pcg LAB HEMETOLOGY METHOD 07/03/2024 7:28 PM [facility] MCHC 31.1(L) 32.0 - 37.0 g/dL LAB HEMETOLOGY METHOD 07/03/2024 7:28 PM [facility] RDW 17.2(H) 11.0 - 15.0 % LAB HEMETOLOGY METHOD 07/03/2024 7:28 PM [facility] LAB Platelets 363 130 - 400 K/mcL LAB HEMETOLOGY METHOD 07/03/2024 7:28 PM [facility] LAB MPV 8.9 7.0 - 11.0 FL LAB HEMETOLOGY METHOD 07/03/2024 7:28 PM [facility] NRBC 0.0 <1.0 % LAB HEMETOLOGY METHOD 07/03/2024 7:28 PM [facility] NRBC Absolute 0.00 <0.10 K/mcL LAB HEMETOLOGY METHOD 07/03/2024 7:28 PM [facility] Neutrophils Relative 67.5 % LAB HEMETOLOGY METHOD 07/03/2024 7:28 PM [facility] Lymphocytes Relative 21.3 % LAB HEMETOLOGY METHOD 07/03/2024 7:28 PM [facility] Monocytes Relative 9.4 % LAB HEMETOLOGY METHOD 07/03/2024 7:28 PM EST [facility] Eosinophils Relative 1.1 % LAB HEMETOLOGY METHOD 07/03/2024 7:28 PM [facility] Basophils Relative 0.4 % LAB HEMETOLOGY METHOD 07/03/2024 7:28 PM [facility] Immature Granulocytes Relative 0.3 % LAB HEMETOLOGY METHOD 07/03/2024 7:28 PM [facility] Neutrophils Absolute 4.87 1.50 - 7.00 K/mcL LAB HEMETOLOGY METHOD 07/03/2024 7:28 PM [facility] Lymphocytes Absolute 1.54 1.00 - 5.00 K/mcL LAB HEMETOLOGY METHOD 07/03/2024 7:28 PM [facility] Monocytes Absolute 0.68 0.20 - 1.00 K/mcL LAB HEMETOLOGY METHOD 07/03/2024 7:28 PM [facility] Eosinophils Absolute 0.08 0.00 - 0.50 K/mcL LAB HEMETOLOGY METHOD 07/03/2024 7:28 PM [facility] Basophils Absolute 0.03 0.00 - 0.20 K/mcL LAB HEMETOLOGY METHOD 07/03/2024 7:28 PM [facility] Immature Granulocytes Absolute 0.02 0.00 - 0.03 K/mcL LAB HEMETOLOGY METHOD 07/03/2024 7:28 PM [facility] Blood Venous blood specimen / Unknown 07/03/2024 6:35 PM EST 07/03/2024 7:06 PM EST Yuri Saunders MD LAB BLOOD ORDERABLES Final Resul t [facility] [address] [place] [address], documented in this encounter Visit Diagnoses Diagnosis Schizophrenia, unspecified (CMS/HCC V24, CMS/HCC V28) documented in this encounter Care Teams Sweatband Decorating Machine Operator Relationship Specialty Start Date End Date Yuri Saunders MD [address] [place] [address] Dr [address] MELODIE Wolf PCP - General Internal Medicine 08/06/24 documented as of this encounter
--- OUTSIDE RECORDS SUMMARY | 2025-05-07 12:52 | XMS_ITS | Encounter Summary ---
Author Organization [employer] Address [address] [place] [address] Care Team Providers Care Reporting Specialist Name Role Phone Yuri Saunders MD Primary Care Provider [phone] Encounter Details Date Type Department Care Team (Late st Contact Info) Description 08/06/2024 Lab Requisition [facility] - Main Lab [address] [facility] [place] [address] Yuri Saunders MD [address] [place] [address] Dr [address] [place], [place] Urinary tract infection, site not specified [...] Hold for add-ons. 08/06/2024 2:01 AM EDT [facility] Comment:Auto resulted. Urine Urine specimen obtained by clean catch procedure / Unknown 08/05/2024 10:30 PM EDT 08/06/2024 12:27 AM EDT us Yuri Saunders MD LAB URINE ORDERABLES Final Resul t Performing Organization Address [facility] de Phone Number [facility] [address] [place] [address], [place] [phone] * Rueda urine culture tube (08/05/2024 10:30 PM EDT) Extra Tube Hold for add-ons. 08/06/2024 2:01 AM EDT [facility] Comment:Auto resulted. Urine Urine specimen obtained by clean catch procedure / Unknown 08/05/2024 10:30 PM EDT 08/06/2024 12:27 AM EDT us Yuri Saunders MD LAB URINE ORDERABLES Final Resul t Performing Organization Address [facility] de Phone Number [facility] [address] [place] [address], [place] [phone] * Urinalysis with reflex microscopic and culture (08/05/2024 10:30 PM EDT) Pathologist [facility] [place] Urine 1.020 1.003 - 1.030 LAB URINALYSIS - AUTOMATED METHOD 08/06/2024 12:33 AM EDT [facility] pH, Urine 6.5 5.0 - 8.0 pH LAB URINALYSIS - AUTOMATED METHOD 08/06/2024 12:33 AM EDT [facility] Leukocytes, Urine Negative Negative LAB URINALYSIS - AUTOMATED METHOD 08/06/2024 12:33 AM EDT [facility] Nitrite, Urine Negative Negative LAB URINALYSIS - AUTOMATED METHOD 08/06/2024 12:33 AM EDT [facility] Protein, Urine Negative <=Trace mg/dL LAB URINALYSIS - AUTOMATED METHOD 08/06/2024 12:33 AM EDT [facility] Glucose, Urine Negative Negative mg/dL LAB URINALYSIS - AUTOMATED METHOD 08/06/2024 12:33 AM [facility] Ketones, Urine Negative Negative mg/dL LAB URINALYSIS - AUTOMATED METHOD 08/06/2024 12:33 AM T [facility] Urobilinogen, Urine 1.0 0.2 - 1.0 mg/dL LAB URINALYSIS - AUTOMATED METHOD 08/06/2024 12:33 AM T [facility] Bilirubin, Urine Negative Negative LAB URINALYSIS - AUTOMATED METHOD 08/06/2024 12:33 AM [facility] Blood, Urine Negative Negative LAB URINALYSIS - AUTOMATED METHOD 08/06/2024 12:33 AM [facility] Urine Urine specimen obtained by clean catch procedure / Unknown 08/05/2024 10:30 PM EDT 08/06/2024 12:27 AM EDT us Yuri Saunders MD LAB URINE ORDERABLES Final Resul t [facility] [address] [place] [address], documented in this encounter Visit Diagnoses Diagnosis Urinary tract infection, site not specified documented in this encounter Care Teams Reporting Specialist Relationship Specialty Start Date End Date Yuri Saunders MD [address] [place] [address] [address] [place] PCP - General Internal Medicine 08/06/24 documented as of this encounter
--- OUTSIDE RECORDS SUMMARY | 2025-05-07 12:52 | XMS_ITS | Clinical Summary ---
Author Organization [address] [facility] Address [address] [place] [address] Phone Care Team Providers Care Mushroom Picker Name Role Phone Yuri Saunders MD Primary Care Provider [phone] Encounters Date Type Department Care Team Description 05/07/2025 Lab Requisition [facility] Lab [address] [place] [phone] Yuri Saunders MD Other chronic osteomyelitis, left ankle and foot ([facility] V24, CMS/[facility] V28) 02/20/2025 Lab Requisition [facility] Lab [address] [place] [phone] Yuri Saunders MD 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 02/19/2025 Lab Requisition [facility] Lab [address] [place] [phone] Yuri Saunders MD Type 2 diabetes mellitus with foot ulcer (CODE) (CMS/[facility] V24, CMS/[facility] V28); Disorder of urea cycle metabolism, unspecified (CMS/[facility] V24); Hypothyroidism, unspecified; Iron deficiency from Last [...] 08/24/2011 Depression Screening 05/08/2024 COVID-19 Vaccine ( season) 2025 Influenza Vaccine (#1) 2025 Diabetes: [...] Procedure Name Priority Date/Time Associated Diagnosis Comments LAVENDER - EDTA Routine 05/07/2025 7:24 AM EST Other chronic osteomyelitis, left ankle and foot (CMS/HCC V24, CMS/HCC V28) CBC WITH AUTO DIFFERENTIAL Routine 05/07/2025 7:24 AM EST Other chronic osteomyelitis, left ankle and foot (CMS/HCC V24, CMS/HCC V28) SEDIMENTATION RATE Routine 05/07/2025 7: 24 AM EST Other chronic osteomyelitis, left ankle and foot (CMS/HCC V24, CMS/HCC V28) CBC AND DIFFERENTIAL Routine 05/07/2025 7:24 AM EST Other chronic osteomyelitis, left ankle and foot (CMS/HCC V24, CMS/HCC V28) CBC WITH AUTO DIFFERENTIAL Routine 02/20/2025 7:00 AM EDT 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 THYROID STIMULATING HORMONE Routine 02/20/2025 7:00 AM EDT 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 HEMOGLOBIN A1C Routine 02/20/2025 7:00 AM EDT Other group home (current) drug therapy THYROXINE FREE Routine 02/20/2025 7:00 AM EDT Other group home (current) drug therapy CBC AND DIFFERENTIAL Routine 02/20/2025 7:00 AM EDT 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 AMMONIA Routine 02/20/2025 7:00 AM EDT Other group home (current) drug therapy COMPREHENSIVE METABOLIC PANEL Routine 02/20/2025 7:00 AM EDT 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 WBC 5.1 4.8 - 10.8 /[facility] LAB HEMETOLOGY METHOD 05/07/2025 8:40 AM EST [facility] RBC 4.00(L) 4.50 [...] LAB Monocytes Absolute 0.76 0.20 - 1.00 K/mcL LAB HEMETOLOGY METHOD 05/07/2025 8:40 AM [facility] Eosinophils Absolute 0.11 0.00 - 0.50 K/mcL LAB HEMETOLOGY METHOD 05/07/2025 8:40 AM [facility] Basophils Absolute 0.03 0.00 - 0.20 K/mcL LAB HEMETOLOGY METHOD 05/07/2025 8:40 AM [facility] Immature Granulocytes Absolute 0.02 0.00 - 0.03 K/mcL LAB HEMETOLOGY METHOD 05/07/2025 8:40 AM [facility] Blood Venous blood specimen / Unknown 05/07/2025 7:24 AM EST 05/07/2025 8:11 AM EST Yuri Saunders MD LAB BLOOD ORDERABLES Final Resul t [facility] [address] [place] [address], [place] [phone] * Lavender tube (05/07/2025 7:24 AM EST) Pathologist [facility] Extra Tube Hold for add-ons. 05/07/2025 10:01 AM EST [facility] Comment:Auto resulted. Blood Venous blood specimen / Unknown 05/07/2025 7:24 AM EST 05/07/2025 8:11 AM EST us Yuri Saunders MD LAB BLOOD ORDERABLES Final Resul t Performing Organization Address [facility] de Phone Number [facility] [address] [place] [address], [place] [phone] * (ABNORMAL) Sedimentation rate (05/07/2025 7:24 AM EST) Pathologist [facility] Sed Rate 62(H) 0 - 20 mm/hr LAB HEMETOLOGY METHOD 05/07/2025 8:29 AM EST [facility] Blood Venous blood specimen / Unknown 05/07/2025 7:24 AM EST 05/07/2025 8:11 AM EST us Yuri Saunders MD LAB BLOOD ORDERABLES Final Resul t Performing Organization Address [facility] de Phone Number [facility] [address] [place] [address], [place] [phone] * Thyroid stimulating hormone (02/20/2025 7:00 AM EDT) TSH 0.96 0.40 - 4.00 mcIU/mL LAB CHEMISTRY METHOD 02/20/2025 9:49 AM EDT [facility] Blood Venous blood specimen / Unknown 02/20/2025 7:00 AM EDT 02/20/2025 7:41 AM EDT us Yuri Saunders MD LAB BLOOD ORDERABLES Final Resul t Performing Organization Address City/[facility]/ZIP Co de Phone Number [facility] [address] [place] [address], [place] [phone] * Thyroxine free (02/20/2025 7:00 AM EDT) Free T4 1.29 0.70 - 1.80 ng/dL LAB CHEMISTRY METHOD 02/20/2025 9:49 AM EDT [facility] Blood Venous blood specimen / Unknown 02/20/2025 7:00 AM EDT 02/20/2025 7:41 AM EDT us Yuri Saunders MD LAB BLOOD ORDERABLES Final Resul t Performing Organization Address [facility] de Phone Number [facility] [address] [place] [address], [place] [phone] * Hemoglobin A1c (02/20/2025 7:00 AM EDT) Hemoglobin A1C 6.2 <6.5 % LAB CHEMISTRY METHOD 02/20/2025 9:32 AM EDT [facility] Mean Bld Glu Estim. 131 mg/dL LAB CHEMISTRY METHOD 02/20/2025 9:32 AM EDT [facility] Blood Venous blood specimen / Unknown 02/20/2025 7:00 AM EDT 02/20/2025 7:41 AM EDT us Yuri Saunders MD LAB BLOOD ORDERABLES Final Resul t Performing Organization Address [facility]/ZIP Co de Phone Number [facility] [address] [place] [address], [place] [phone] * (ABNORMAL) Ammonia (02/20/2025 7:00 AM EDT) Ammonia 47(H) 11 - 35 mcmol/L LAB CHEMISTRY METHOD 02/20/2025 8:14 AM [facility] Blood Venous blood specimen / Unknown 02/20/2025 7:00 AM EDT 02/20/2025 7:41 AM EDT us Yuri Saunders MD LAB BLOOD ORDERABLES Final Resul t [facility] [address] [place] [address], * (ABNORMAL) Comprehensive metabolic panel (02/20/2025 7:00 AM EDT) Sodium 138 133 - 145 mmol/L LAB CHEMISTRY METHOD 02/20/2025 8:25 AM [facility] Potassium 4.1 3.5 - 5.5 mmol/L [...] g/dL LAB CHEMISTRY METHOD 02/20/2025 8:25 AM [facility] Albumin 2.6(L) 3.2 - 5.0 g/dL LAB CHEMISTRY METHOD 02/20/2025 8:25 AM [facility] Total Bilirubin 0.3 0.0 - 1.4 mg/dL LAB CHEMISTRY METHOD 02/20/2025 8:25 AM [facility] Blood Venous blood specimen / Unknown 02/20/2025 7:00 AM EDT 02/20/2025 7:41 AM EDT us Yuri Saunders MD LAB BLOOD ORDERABLES Final Resul t [facility] [address] [place] [address], * Lipid panel with reflex to direct LDL (08/19/2024 7:05 AM EDT) Cholesterol 131 0 - 200 mg/dL LAB CHEMISTRY METHOD 08/19/2024 8:50 AM EDT [facility] Triglycerides 35 0 - 150 mg/dL LAB CHEMISTRY METHOD 08/19/2024 8:50 AM EDT [facility] HDL 57 >=40 mg/dL LAB CHEMISTRY METHOD 08/19/2024 8:50 AM EDT [facility] LDL Calculated 67 0 - 100 mg/dL LAB CHEMISTRY METHOD 08/19/2024 8:50 AM EDT [facility] VLDL Cholesterol Chris 7 mg/dL LAB CHEMISTRY METHOD 08/19/2024 8:50 AM EDT [facility] Non HDL Chol. (LDL+VLDL) 74 <145 mg/dL LAB CHEMISTRY METHOD 08/19/2024 8:50 AM EDT [facility] Chol/HDL Ratio 2.3 0.0 - 4.4 LAB CHEMISTRY METHOD 08/19/2024 8:50 AM EDT [facility] Blood Venous blood specimen / Unknown 08/19/2024 7:05 AM EDT 08/19/2024 8:02 AM EDT us Yuri Saunders MD LAB BLOOD ORDERABLES Final Resul t [facility] [address] [place] [address], from Last 3 Months or Most Recently Relevant to Health Maintenance Insurance [place] Care Teams Mushroom Picker Relationship Specialty Start Date End Date Yuri Saunders MD [address] [place] [address] Dr [address] MELODIE Wolf PCP - General Internal Medicine 08/06/24
--- OUTSIDE RECORDS SUMMARY | 2025-05-07 12:52 | XMS_ITS | Encounter Summary ---
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 Name Role Phone Yuri Saunders MD Primary Care Provider [phone] Encounter Details Date Type Department Care Team (Late st Contact Info) Description 08/02/2024 Lab Requisition [facility] - Main Lab [address] [facility] [place] [address] Yuri Saunders MD [address] [place] [address] [address] [place], [place] Other fci (current) drug therapy Social History Tobacco Use [...] GOLD Routine 08/02/2024 6:15 AM EDT Other fci (current) drug therapy HALOPERIDOL LEVEL Routine 08/02/2024 6:1 5 AM EDT 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 08/02/2024 8:01 AM [facility] Comment:Auto resulted. Blood Venous blood specimen / Unknown 08/02/2024 6:15 AM EDT 08/02/2024 6:47 AM EDT Yuri Saunders MD LAB BLOOD ORDERABLES Final Resul t [facility] [address] [place] [address], * (ABNORMAL) Complete blood count (08/02/2024 6:15 AM EDT) Pathologist [facility] WBC 6.2 4.8 - 10.8 K/mcL LAB HEMETOLOGY METHOD 08/02/2024 7:04 AM [facility] RBC 3.90(L) 4.50 - 5.50 M/mcL LAB HEMETOLOGY METHOD 08/02/2024 7:04 AM [facility] Hemoglobin 10.1(L) 13.5 - 17.5 g/dL LAB HEMETOLOGY METHOD 08/02/2024 7:04 AM [facility] Hematocrit 32.5(L) 42.0 - 54.0 % LAB HEMETOLOGY METHOD 08/02/2024 7:04 AM [facility] MCV 82.9 79.0 - 98.0 FL LAB HEMETOLOGY METHOD 08/02/2024 7:04 AM [facility] MCH 25.8(L) 27.0 - 32.0 pcg LAB HEMETOLOGY METHOD 08/02/2024 7:04 AM [facility] MCHC 31.1(L) 32.0 - 37.0 g/dL LAB HEMETOLOGY METHOD 08/02/2024 7:04 AM EDT [facility] RDW 16.9(H) 11.0 - 15.0 % LAB HEMETOLOGY METHOD 08/02/2024 7:04 AM EDT [facility] Platelets 277 130 - 400 K/mcL LAB HEMETOLOGY METHOD 08/02/2024 7:04 AM EDT [facility] MPV 9.0 7.0 - 11.0 FL LAB HEMETOLOGY METHOD 08/02/2024 7:04 AM EDT [facility] NRBC 0.0 <1.0 % LAB HEMETOLOGY METHOD 08/02/2024 7:04 AM EDT [facility] NRBC Absolute 0.00 <0.10 K/mcL LAB HEMETOLOGY METHOD 08/02/2024 7:04 AM EDT [facility] Blood Venous blood specimen / Unknown 08/02/2024 6:15 AM EDT 08/02/2024 6:47 AM EDT Yuri Saunders MD LAB BLOOD ORDERABLES Final Resul t [facility] [address] [place] [address], * (ABNORMAL) Oxcarbazepine level (08/02/2024 6:15 AM EDT) Oxcarbazepine 5.2(L) 10 - 35 ug/mL 08/05/2024 12:30 PM EDT [facility] Comment: If applicable, any drug confirmation testing reported here was developed and the performance characteristics determined by [facility]. This confirmation testing has not been cleared or approved by the FDA. The laboratory is regulated under CLIA as qualified to perform high-complexity testing. This test is used for patient testing purposes. It should not be regarded as investigational or for research. Test performed at [facility], [address] , [place] [address] Alanna Escalante MD, PhD - [employer] Blood Venous blood specimen / Unknown 08/02/2024 6:15 AM EDT 08/02/2024 6:47 AM EDT us Yuri Saunders MD LAB BLOOD ORDERABLES Final Resul t Performing Organization Address [facility]/ZIP Co de Phone Number [facility] [address] [place] [address] * (ABNORMAL) Haloperidol level (08/02/2024 6:15 AM EDT) Haloperidol 16(H) 5 - 15 ng/mL 08/14/2024 4:[address] [facility] Comment: This test was developed and its analytical performance characteristics have been determined by [employer]. It has not been cleared or approved by the FDA. This assay has been validated pursuant to the CLIA regulations and is used for clinical purposes. TEST PERFORMED AT: [employer] [address] [id number] GOLDIE DAS MD Blood Venous blood specimen / Unknown 08/02/2024 6:15 AM EDT 08/02/2024 6:47 AM EDT us Yuri Saunders MD LAB BLOOD ORDERABLES Final Resul t Performing Organization Address [facility] de Phone Number [facility] [address] [place] [address] * (ABNORMAL) Ammonia (08/02/2024 6:15 AM EDT) Ammonia 50(H) 11 - 35 mcmol/L LAB CHEMISTRY METHOD 08/02/2024 7:19 AM EDT [facility] Blood Venous blood specimen / Unknown 08/02/2024 6:15 AM EDT 08/02/2024 6:47 AM EDT us Yuri Saunders MD LAB BLOOD ORDERABLES Final Resul t Performing Organization Address City/[facility]/ZIP Co de Phone Number [facility] [address] [place] [address], * (ABNORMAL) Comprehensive metabolic panel (08/02/2024 6:15 AM EDT) Sodium 137 133 - 145 mmol/L LAB CHEMISTRY METHOD 08/02/2024 8:26 AM [facility] Potassium 4.4 3.5 - 5.5 mmol/L LAB CHEMISTRY METHOD 08/02/2024 8:26 AM [facility] Comment:Hemolysis present Chloride 104 96 - 110 mmol/L LAB CHEMISTRY METHOD 08/02/2024 8:26 AM [facility] CO2 29 21 - 32 mmol/L LAB CHEMISTRY METHOD 08/02/2024 8:26 AM [facility] Anion Gap 4 3 - 11 LAB CHEMISTRY METHOD 08/02/2024 8:26 AM [facility] Glucose 78 70 - 100 mg/dL LAB CHEMISTRY METHOD 08/02/2024 8:26 AM [facility] BUN 17 5 - 25 mg/dL LAB CHEMISTRY METHOD 08/02/2024 8:26 AM [facility] Creatinine 0.46(L) 0.70 - 1.30 mg/dL LAB CHEMISTRY METHOD 08/02/2024 8:26 AM [facility] eGFR 118 >=60 mL/min/1. 73m2 LAB CHEMISTRY METHOD 08/02/2024 8:26 AM [facility] Comment:Calculation based on the Chronic Kidney Disease Epidemiology Collaboration (CKD-EPI) equation refit without adjustment for race. BUN/Creatinine Ratio 37.0 LAB CHEMISTRY METHOD 08/02/2024 8:26 AM [facility] Calcium 8.6 8.5 - 10.5 mg/dL LAB CHEMISTRY METHOD 08/02/2024 8:26 AM [facility] AST (SGOT) 26 10 - 42 unit/L LAB CHEMISTRY METHOD 08/02/2024 8:26 AM T [facility] Comment:Hemolysis present ALT (SGPT) 27 10 - 60 unit/L LAB CHEMISTRY METHOD 08/02/2024 8:26 AM T [facility] Alkaline Phosphatase 171(H) 42 - 121 unit/L LAB CHEMISTRY METHOD 08/02/2024 8:26 AM T [facility] Total Protein 6.8 6.0 - 8.0 g/dL LAB CHEMISTRY METHOD 08/02/2024 8:26 AM T [facility] Albumin 2.8(L) 3.2 - 5.0 g/dL LAB CHEMISTRY METHOD 08/02/2024 8:26 AM [facility] Total Bilirubin 0.3 0.0 - 1.4 mg/dL LAB CHEMISTRY METHOD 08/02/2024 8:26 AM [facility] Blood Venous blood specimen / Unknown 08/02/2024 6:15 AM EDT 08/02/2024 6:47 AM EDT us Yuri Saunders MD LAB BLOOD ORDERABLES Final Resul t [facility] [address] [place] [address], documented in this encounter Visit Diagnoses Diagnosis 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
== END 2025-05-07 12:01 | disposition home or self-care (01) ==
LOC: HO.HPHYS 11:16
PROVIDERS: PCP Hospitalist; Visit Provider Physician Assistant
DX: M54.51 Vertebrogenic low back pain (principal); M54.16 Radiculopathy, lumbar region
CPT/HCPCS: 99204

== ENCOUNTER → 2025-05-07 11:16 | Outpatient (BNVA) | payer MEDICAID, SELFPAY | PROVIDERS: PCP Hospitalist; Visit Provider Physician Assistant | DX: M54.16 Radiculopathy, lumbar region (principal); M54.51 Vertebrogenic low back pain; G89.29 Other chronic pain | CPT/HCPCS: 99202 ==